=== PATIENT | male | born 1965 | race Caucasian/White ===

== ENCOUNTER 2020-02-12 17:36 | Emergency (ER) | payer MEDICARE, OTHER ==
[2020-02-12] MEDS ORDERED: IBUPROFEN 600 MG TAB PO STA (17:49)
[2020-02-12] MEDS ORDERED: SODIUM CHLORIDE 0.9% 1,000 ML IV STA (17:49)
[2020-02-12 17:57] VITALS: BP 130/81; PULSE 69; RESP 18; TEMP 99.1
[2020-02-12 18:24] LABS: Basophils % (A) 1 %; Eosinophils # (A) 0.4 k/uL (0-0.7); Eosinophils % (A) 4 %; HCT 40.1 % (39.0-53.0); HGB 13.7 gm/dL (13.0-17.5); Lymphocytes # (A) 2.5 k/uL (1.0-4.8); Lymphocytes % (A) 29 %; MCH 33.4 pg (25.0-35.0); MCHC 34.2 g/dL (31.0-37.0); MCV 97.9 fL (80.0-100.0); Mean Platelet Volume 7.2; Monocytes # (A) 0.7 k/uL (0-1.0); Monocytes % (A) 8 %; Neutrophils # (A) 4.9 k/uL (1.3-7.7); Neutrophils % (A) 56 %; Platelet Count 154 k/uL (150-450); RDW 12.9 % (11.5-15.5); WBC 8.7 k/uL (3.8-10.6)
[2020-02-12 18:33] LABS: ALT 22 U/L (4-49); AST 30 U/L (17-59); African American GFR (CKD) >90 (>60 ml/min/1.73 sqM); Albumin 3.8 g/dL (3.5-5.0); Alkaline Phosphatase 72 U/L (38-126); Anion Gap 8 mmol/L; Blood Urea Nitrogen 18 mg/dL (9-20); Calcium 8.6 mg/dL (8.4-10.2); Carbon Dioxide 28 mmol/L (22-30); Chloride 100 mmol/L (98-107); Glucose 91 mg/dL (74-99); Non-African American GFR(CKD) >90 (>60 ml/min/1.73 sqM); Potassium 4.1 mmol/L (3.5-5.1); Sodium 136 mmol/L (137-145); Total Bilirubin 0.2 mg/dL (0.2-1.3); Total Protein 6.4 g/dL (6.3-8.2)
--- NOTE | 2020-02-12 18:48 | XR ---
EXAMINATION TYPE: XR chest 1V portable DATE OF EXAM: 02/12/2020 COMPARISON: 02/27/2015 INDICATION: Cough, fever TECHNIQUE: Single frontal view of the chest is obtained. FINDINGS: The heart size is normal. The pulmonary vasculature is normal. The lungs are clear. There is chronic elevation of the right diaphragm. IMPRESSION: 1. No acute pulmonary process.
--- NOTE | 2020-02-12 20:13 | ED ---
Fever HPI - General Chief Complaint: Fever Stated Complaint: NVD,Fever Time Seen by Provider: 02/12/20 17:45 Source: patient, EMS Mode of arrival: EMS Limitations: language barrier - History of Present Illness Initial Comments: The patient is a 54-year-old male who presents to the emergency room in from a [facility] for fever. History is difficult to obtain as the patient is deaf however he does communicate well when examiner writes out the questions. He states that he feels fine however his [facility] told him that he was sick. They have been she gets vitals and he did have a fever of 100.4 today. He also stated that he had a cough which she does admit to. He denies any chest pain or shortness of breath. No abdominal pain. Denies any nausea or vomiting. No diarrhea or constipation. Denies any urinary complaints to include dysuria, he maturia or difficulty voiding. He denies any rashes. No headaches or visual changes. No neck pain or stiffness. There are no other alleviating, precipitating or modifying factors - Related Data Home Medications Medication Instructions Recorded Confirmed Aspirin EC [Ecotrin] 325 mg PO DAILY 09/17/14 02/12/20 Divalproex ER [Depakote ER] 500 mg PO TID 02/14/15 02/12/20 Metoprolol Tartrate [Lopressor] 50 mg PO BID 02/14/15 02/12/20 ARIPiprazole [Abilify] 20 mg PO DAILY 11/25/15 02/12/20 Mirtazapine [Remeron] 15 mg PO HS 11/25/15 02/12/20 Sertraline [Zoloft] 100 mg PO BID 11/25/15 02/12/20 Cetirizine HCl [Zyrtec] 10 mg PO DAILY 02/12/20 02/12/20 LORazepam [Ativan] 0.5 mg PO BID@0800,1430 02/12/20 02/12/20 LORazepam [Ativan] 1 mg PO HS 02/12/20 02/12/20 Levothyroxine Sodium [Synthroid] 200 mcg PO DAILY 02/12/20 02/12/20 Multivitamins, Thera [Multivitamin 1 tab PO DAILY 02/12/20 02/12/20 (formulary)] amLODIPine [Norvasc] 5 mg PO DAILY 02/12/20 02/12/20 chlorproMAZINE HCL [Thorazine] 50 mg PO BID 02/12/20 02/12/20 Allergies Allergy/AdvReac Type Severity Reaction Status Date / Time alprazolam [From Xanax] Allergy Unknown Verified 02/12/20 19:36 buspirone HCl [From BuSpar] Allergy Rash/Hives Verified 02/12/20 19:36 iodine Allergy Unknown Verified 02/12/20 19:36 Childhood haloperidol [From Haldol] AdvReac personality Verified 02/12/20 19:36 changes haloperidol lactate AdvReac personality Verified 02/12/20 19:36 [From Haldol] changes CT SCAN DYE Allergy Unknown Uncoded 02/12/20 17:45 Childhood Review of Systems ROS Statement: Those systems with pertinent positive or pertinent negative responses have been documented in the HPI. ROS Other: All systems not noted in ROS Statement are negative. 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 He takes his medication in applesauce or yogurt. He also has balance issues at times. He has been newly prescribed thyroid medication but has not started it yet. He has had hyponatremia which family believes physicians think it may be due to d epakote. He had a CVA in August 2014. He has had abdominal pain in the past and overuse of stool softners. He has hemorrhoids. He has a seizure disorder with last seizure yrs ago-family believe seizure medication was working well. History of Any Multi-Drug Resistant Organisms: None Reported Additional Past Surgical History / Comment(s): 04/11/15 total colonoscopy with benign biopsy, ANEURYSM REPAIR(clip in place)-brain surgeries(CRANIOTOMY) due to neuro fibromitosis causing tumors,sx done at [facility]- dr aishwarya harrison. Old L cochlear implant. Pt has had peg and trach in the . Past Anesthesia/Blood Transfusion Reactions: No Reported Reaction Past Psychological History: Anxiety, Depression Smoking Status: Former smoker Past Alcohol Use History: None Reported Past Drug Use History: Marijuana - Past Family History Father Family Medical History: COPD Additional Family Medical History / Comment(s): Father was a smoker and had emphysema. Mother Additional Family Medical History / Comment(s): Mother of lung disease. General Exam Limitations: language barrier General appearance: alert, in no apparent distress Head exam: Present: atraumatic, normocephalic, normal inspection Eye exam: Present: normal appearance, PERRL, EOMI. Absent: scleral icterus, conjunctival injection, periorbital swelling ENT exam: Present: normal exam, mucous membranes moist Neck exam: Present: normal inspection. Absent: tenderness, meningismus, lymphadenopathy Respiratory exam: Present: normal lung sounds bilaterally. Absent: respiratory distress, wheezes, rales, rhonchi, stridor Cardiovascular Exam: Present: regular rate, normal rhythm, normal heart sounds. Absent: systolic murmur, diastolic murmur, rubs, gallop, clicks GI/Abdominal exam: Present: soft, normal bowel sounds. Absent: distended, tenderness, guarding, rebound, rigid Extremities exam: Present: normal inspection, full ROM, normal capillary refill. Absent: tenderness, pedal edema, joint swelling, calf tenderness Back exam: Present: normal inspection Neurological exam: Present: alert, oriented X3, CN II-XII intact Psychiatric exam: Present: normal affect, normal mood Skin exam: Present: warm, dry, intact, normal color. Absent: rash Course Vital Signs 02/12/20 17:45 Temperature 99.1 F Pulse Rate 69 Respiratory 18 Rate Blood Pressure 130/81 O2 Sat by Pulse 100 Oximetry Medical Decision Making - Medical Decision Making Upon arrival the patient is placed into room 7. A thorough history and physical exam is performed. Peripheral IV is established. Laboratories were conducted. White blood cell count normal at 8.7. Sodium 136. Chest x-ray demonstrates no acute cardio pulmonary process. I did request a UA however the patient is unable to provide one. Patient is here to leave at this time. I did discuss the diagnosis, differential and treatment options. Source of fever is not revealed however the patient states he feels well and wants to go home. I did swab him for Covid test is because he lives in a group setting. I informed him that he would be called with results. Follow up with his doctor within 2 days. Return to the emergency room if he has any new or worsening symptoms. Patient was in agreement with this. We did call his guardian who is in agreement with the plan and the patient was discharged home in stable condition - Lab Data Result diagrams: 02/12/20 18:15 02/12/20 18:15 Lab Results 02/12/20 02/12/20 02/12/20 Range/Units 18:15 18:15 18:15 WBC 8.7 (3.8-10.6) k/uL RBC 4.10 L (4.30-5.90) m/uL Hgb 13.7 (13.0-17.5) gm/dL Hct 40.1 (39.0-53.0) % MCV 97.9 (80.0-100.0) fL MCH 33.4 (25.0-35.0) pg MCHC 34.2 (31.0-37.0) g/dL RDW 12.9 (11.5-15.5) % Plt Count 154 (150-450) k/uL Neutrophils % 56 % Lymphocytes % 29 % Monocytes % 8 % Eosinophils % 4 % Basophils % 1 % Neutrophils # 4.9 (1.3-7.7) k/uL Lymphocytes # 2.5 (1.0-4.8) k/uL Monocytes # 0.7 (0-1.0) k/uL Eosinophils # 0.4 (0-0.7) k/uL Basophils # 0.0 (0-0.2) k/uL Sodium 136 L (137-145) mmol/L Potassium 4.1 (3.5-5.1) mmol/L Chloride 100 (98-107) mmol/L Carbon Dioxide 28 (22-30) mmol/L Anion Gap 8 mmol/L BUN 18 (9-20) mg/dL Creatinine 0.66 (0.66-1.25) mg/dL Est GFR (CKD-EPI)AfAm >90 (>60 ml/min/1.73 sqM) Est GFR (CKD-EPI)NonAf >90 (>60 ml/min/1.73 sqM) Glucose 91 (74-99) mg/dL Plasma Lactic Acid Jaime 0.8 (0.7-2.0) mmol/L Calcium 8.6 (8.4-10.2) mg/dL Total Bilirubin 0.2 (0.2-1.3) mg/dL AST 30 (17-59) U/L ALT 22 (4-49) U/L Alkaline Phosphatase 72 (38-126) U/L Total Protein 6.4 (6.3-8.2) g/dL Albumin 3.8 (3.5-5.0) g/dL Lipase 151 (23-300) U/L Free Valproic Acid (4.8-17.3) mg/L Coronavirus (PCR) (Not Detected) 02/12/20 02/12/20 Range/Units 18:15 20:59 WBC (3.8-10.6) k/uL RBC (4.30-5.90) m/uL Hgb (13.0-17.5) gm/dL Hct (39.0-53.0) % MCV (80.0-100.0) fL MCH (25.0-35.0) pg MCHC (31.0-37.0) g/dL RDW (11.5-15.5) % Plt Count (150-450) k/uL Neutrophils % % Lymphocytes % % Monocytes % % Eosinophils % % Basophils % % Neutrophils # (1.3-7.7) k/uL Lymphocytes # (1.0-4.8) k/uL Monocytes # (0-1.0) k/uL Eosinophils # (0-0.7) k/uL Basophils # (0-0.2) k/uL Sodium (137-145) mmol/L Potassium (3.5-5.1) mmol/L Chloride (98-107) mmol/L Carbon Dioxide (22-30) mmol/L Anion Gap mmol/L BUN (9-20) mg/dL Creatinine (0.66-1.25) mg/dL Est GFR (CKD-EPI)AfAm (>60 ml/min/1.73 sqM) Est GFR (CKD-EPI)NonAf (>60 ml/min/1.73 sqM) Glucose (74-99) mg/dL Plasma Lactic Acid Jaime (0.7-2.0) mmol/L Calcium (8.4-10.2) mg/dL Total Bilirubin (0.2-1.3) mg/dL AST (17-59) U/L ALT (4-49) U/L Alkaline Phosphatase (38-126) U/L Total Protein (6.3-8.2) g/dL Albumin (3.5-5.0) g/dL Lipase (23-300) U/L Free Valproic Acid 15.3 (4.8-17.3) mg/L Coronavirus (PCR) Not Detected (Not Detected) Disposition Clinical Impression: Fever Disposition: HOME SELF-CARE Condition: Stable Instructions (If sedation given, give patient instructions): Fever in Adults (ED) Additional Instructions: Please follow up with your primary care doctor in 2-4 days. We will call you if you are positive for Covid. Return to the emergency room for any new or wors ening symptoms Is patient prescribed a controlled substance at d/c from ED?: No Referrals: None,Stated [Primary Care Provider] - 1-2 days Time of Disposition: 21:09
== END 2020-02-12 21:34 | disposition home or self-care (01) ==
LOC: EC 17:36
DX: R50.9 Fever, unspecified (principal); F32.9 Major depressive disorder, single episode, unspecified; F41.9 Anxiety disorder, unspecified; I10 Essential (primary) hypertension; H54.8 Legal blindness, as defined in USA; E07.9 Disorder of thyroid, unspecified; G40.909 Epilepsy, unspecified, not intractable, without status epilepticus; H91.90 Unspecified hearing loss, unspecified ear; Z79.82 Long term (current) use of aspirin; Z79.890 Hormone replacement therapy; Z79.899 Other long term (current) drug therapy; Z88.8 Allergy status to other drugs, medicaments and biological substances; Z91.041 Radiographic dye allergy status; Z86.73 Personal history of transient ischemic attack (TIA), and cerebral infarction without residual deficits; Z87.891 Personal history of nicotine dependence; Z20.828 Contact with and (suspected) exposure to other viral communicable diseases
CPT/HCPCS: 36415; 80165; 80053; 83605; 83690; 85025; 71045; 99284; 96360; U0003

== ENCOUNTER 2020-07-06 00:53 | Emergency (ER) | payer MEDICARE, OTHER ==
[2020-07-06] MEDS ORDERED: IBUPROFEN 600 MG TAB PO STA (01:28)
[2020-07-06 02:04] LABS: Basophils # (A) 0.1 k/uL (0-0.2); Basophils % (A) 1 %; Eosinophils # (A) 0.2 k/uL (0-0.7); Eosinophils % (A) 2 %; HCT 35.4 % (39.0-53.0); HGB 11.9 gm/dL (13.0-17.5); Lymphocytes # (A) 1.8 k/uL (1.0-4.8); Lymphocytes % (A) 18 %; MCH 33.6 pg (25.0-35.0); MCHC 33.6 g/dL (31.0-37.0); MCV 99.9 fL (80.0-100.0); Mean Platelet Volume 7.4; Monocytes # (A) 0.8 k/uL (0-1.0); Monocytes % (A) 9 %; Neutrophils # (A) 6.7 k/uL (1.3-7.7); Neutrophils % (A) 68 %; Platelet Count 135 k/uL (150-450); RBC 3.55 m/uL (4.30-5.90); RDW 12.5 % (11.5-15.5); WBC 9.9 k/uL (3.8-10.6)
[2020-07-06 02:06] LABS: African American GFR (CKD) >90 (>60 ml/min/1.73 sqM); Anion Gap 4 mmol/L; Blood Urea Nitrogen 30 mg/dL (9-20); Calcium 8.1 mg/dL (8.4-10.2); Carbon Dioxide 31 mmol/L (22-30); Chloride 99 mmol/L (98-107); Glucose 102 mg/dL (74-99); Non-African American GFR(CKD) >90 (>60 ml/min/1.73 sqM); Potassium 4.1 mmol/L (3.5-5.1); Sodium 134 mmol/L (137-145)
--- NOTE | 2020-07-06 02:27 | CT ---
EXAM: CT Head Without Intravenous Contrast CLINICAL HISTORY: ITS.REASON CT Reason: fall injury TECHNIQUE: Axial computed tomography images of the head/brain without intravenous contrast. CTDI is 46.05 mGy and DLP is 1123.5 mGy-cm. This CT exam was performed using one or more of the following dose reduction techniques: automated exposure control, adjustment of the mA and/or kV according to patient size, and/or use of iterative reconstruction technique. COMPARISON: 11/24/2015 FINDINGS: Brain: No hemorrhage. 5 cm mass in the right frontal lobe effacing the right frontal horn lateral ventricle. Multiple dystrophic calcifications and extra-axial calcified lesions are seen. Ventricles: No hydrocephalus. Bones/joints: Postsurgical changes are again seen. Soft tissues: Unremarkable. Sinuses: Unremarkable. Mastoid air cells: Clear. IMPRESSION: 1. No acute traumatic findings. 2. Multiple calcified extra-axial dural masses, presumed to be multiple meningiomas, some of them are new. The largest process is a new 5 cm mass in the right frontal lobe, which effaces the right frontal horn lateral ventricle. No significant midline shift. 3. 2.1 cm calcified lymph node/mass in the left carotid space. Unchanged from 2016. EXAM: CT Cervical Spine Without Intravenous Contrast CLINICAL HISTORY: ITS.REASON CT Reason: fall injury TECHNIQUE: Axial computed tomography images of the cervical spine without intravenous contrast. CTDI is 9.785 mGy and DLP is 271.8 mGy-cm. This CT exam was performed using one or more of the following dose reduction techniques: automated exposure control, adjustment of the mA and/or kV according to patient size, and/or use of iterative reconstruction technique. COMPARISON: No relevant prior studies available. FINDINGS: Vertebrae: No acute fracture. Minimal anterolisthesis of C2-3 on C4 and retrolisthesis of C4 on C5, C5 on C6 and C6 on C7. Dextroscoliosis. Discs/spinal canal/neural foramina: Degenerative changes. Soft tissues: No prevertebral swelling. 2.1 cm calcified lymph node/mass in the left carotid space. IMPRESSION: 1. No acute fracture or subluxation. 2. 2.1 cm calcified lymph node/mass in the left carotid space. Unchanged from 2016.
--- NOTE | 2020-07-06 02:59 | ED ---
Fall HPI - General Chief Complaint: Fall Stated Complaint: Fall Time Seen by Provider: 07/06/20 01:01 Source: EMS Mode of arrival: EMS - History of Present Illness Initial Comments: this patient's 55-year-old man transferred from his long-term care facility to be evaluated after what sounds like a fall one attempting to transfer. History is difficult as the patient very hard of hearing andcommunication by a written note to which she will speak in return. He oes occasionally understand spoken question and responsive to them. The patient reportedly told EMS that he was having pain in the neck and was placed in cervical collar. While here, patient deniedneck pain MD Complaint: fall Onset/Timin -: hour(s) Fall From: standing When Fall Occurred: just prior to arrival Fall Witnessed: yes, by family Place Fall Occurred: home Loss of Consciousness: none Prolonged Down Time?: no Location: neck - Related Data Home Medications Medication Instructions Recorded Confirmed Aspirin EC [Ecotrin] 325 mg PO DAILY 09/17/14 02/12/20 Divalproex ER [Depakote ER] 500 mg PO TID 02/14/15 02/12/20 Metoprolol Tartrate [Lopressor] 50 mg PO BID 02/14/15 02/12/20 ARIPiprazole [Abilify] 20 mg PO DAILY 11/25/15 02/12/20 Mirtazapine [Remeron] 15 mg PO HS 11/25/15 02/12/20 Sertraline [Zoloft] 100 mg PO BID 11/25/15 02/12/20 Cetirizine HCl [Zyrtec] 10 mg PO DAILY 02/12/20 02/12/20 LORazepam [Ativan] 0.5 mg PO BID@0800,1430 02/12/20 02/12/20 LORazepam [Ativan] 1 mg PO HS 02/12/20 02/12/20 Levothyroxine Sodium [Synthroid] 200 mcg PO DAILY 02/12/20 02/12/20 Multivitamins, Thera [Multivitamin 1 tab PO DAILY 02/12/20 02/12/20 (formulary)] amLODIPine [Norvasc] 5 mg PO DAILY 02/12/20 02/12/20 chlorproMAZINE HCL [Thorazine] 50 mg PO BID 02/12/20 02/12/20 Allergies Allergy/AdvReac Type Severity Reaction Status Date / Time alprazolam [From Xanax] Allergy Unknown Verified 02/12/20 19:36 buspirone HCl [From BuSpar] Allergy Rash/Hives Verified 02/12/20 19:36 iodine Allergy Unknown Verified 02/12/20 19:36 Childhood haloperidol [From Haldol] AdvReac personality Verified 02/12/20 19:36 changes haloperidol lactate AdvReac personality Verified 02/12/20 19:36 [From Haldol] changes CT SCAN DYE Allergy Unknown Uncoded 02/12/20 17:45 Childhood Review of Systems ROS Statement: Those systems with pertinent positive or pertinent negative responses have been documented in the HPI. ROS Other: All systems not noted in ROS Statement are negative. 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 He takes his medication in applesauce or yogurt. He also has balance issues at times. He has been newly prescribed thyroid medication but has not started it yet. He has had hyponatremia which family believes physicians think it may be due to depakote. He had a CVA in August 2014. He has had abdominal pain in the past and overuse of stool softners. He has hemorrhoids. He has a seizure disorder with last seizure yrs ago-family believe seizure medication was working well. History of Any Multi-Drug Resistant Organisms: None Reported Additional Past Surgical History / Comment(s): 04/11/15 total colonoscopy with benign biopsy, ANEURYSM REPAIR(clip in place)-brain surgeries(CRANIOTOMY) due to neuro fibromitosis causing tumors,sx done at [facility]- dr aishwarya harrison. Old L cochlear implant. Pt has had peg and trach in the . Past Anesthesia/Blood Transfusion Reactions: No Reported Reaction Past Psychological History: Anxiety, Depression Past Alcohol Use History: None Reported Past Drug Use History: Marijuana - Past Family History Father Family Medical History: COPD Additional Family Medical History / Comment(s): Father was a smoker and had emphysema. Mother Additional Family Medical History / Comment(s): Mother of lung disease. General Exam Limitations: altered mental status, physical limitation General appearance: alert, in no apparent distress Head exam: Present: atraumatic, normocephalic Neck exam: Present: normal inspection, other (cervical collar). Absent: tenderness Respiratory exam: Present: normal lung sounds bilaterally. Absent: respiratory distress, wheezes, rales, rhonchi, chest wall tenderness Cardiovascular Exam: Present: regular rate, normal rhythm, normal heart sounds. Absent: systolic murmur, diastolic murmur, rubs, gallop GI/Abdominal exam: Present: soft. Absent: distended, tenderness, guarding, rebound, rigid, mass Extremities exam: Present: normal inspection, normal capillary refill. Absent: pedal edema, calf tenderness Back exam: Present: normal inspection. Absent: vertebral tenderness Neurological exam: Present: alert Skin exam: Present: warm, dry, intact, normal color. Absent: rash Course Vital Signs 07/06/20 07/06/20 07/06/20 01:05 02:20 03:39 Temperature 98.1 F 98.0 F Pulse Rate 66 68 72 Respiratory 18 16 Rate Blood Pressure 107/65 100/58 104/76 O2 Sat by Pulse 100 97 100 Oximetry Medical Decision Making - Medical Decision Making patient's 55-year-old man with a fall at his long-term care facility. Low mechanism of injury. Given the communication difficulty patient did have head CT C-spine included because of the EMS report of neck pain. The study is negative. I was otherwise not able to elicit any tenderness on the exam. Patient transferred back to [facility] - Lab Data Result diagrams: 07/06/20 01:46 07/06/20 01:46 Lab Results 07/06/20 07/06/20 Range/Units 01:46 01:46 WBC 9.9 (3.8-10.6) k/uL RBC 3.55 L (4.30-5.90) m/uL Hgb 11.9 L (13.0-17.5) gm/dL Hct 35.4 L (39.0-53.0) % MCV 99.9 (80.0-100.0) fL MCH 33.6 (25.0-35.0) pg MCHC 33.6 (31.0-37.0) g/dL RDW 12.5 (11.5-15.5) % Plt Count 135 L (150-450) k/uL Neutrophils % 68 % Lymphocytes % 18 % Monocytes % 9 % Eosinophils % 2 % Basophils % 1 % Neutrophils # 6.7 (1.3-7.7) k/uL Lymphocytes # 1.8 (1.0-4.8) k/uL Monocytes # 0.8 (0-1.0) k/uL Eosinophils # 0.2 (0-0.7) k/uL Basophils # 0.1 (0-0.2) k/uL Sodium 134 L (137-145) mmol/L Potassium 4.1 (3.5-5.1) mmol/L Chloride 99 (98-107) mmol/L Carbon Dioxide 31 H (22-30) mmol/L Anion Gap 4 mmol/L BUN 30 H (9-20) mg/dL Creatinine 0.86 (0.66-1.25) mg/dL Est GFR (CKD-EPI)AfAm >90 (>60 ml/min/1.73 sqM) Est GFR (CKD-EPI)NonAf >90 (>60 ml/min/1.73 sqM) Glucose 102 H (74-99) mg/dL Calcium 8.1 L (8.4-10.2) mg/dL Disposition Clinical Impression: Fall, Head injury Disposition: HOME SELF-CARE Condition: Good Instructions (If sedation given, give patient instructions): Head Injury (ED) Is patient prescribed a controlled substance at d/c from ED?: No Referrals: None,Stated [Primary Care Provider] - 1-2 days
[2020-07-06 03:47] VITALS: BP 104/76; PULSE 72; RESP 16; TEMP 98
== END 2020-07-06 03:46 | disposition home or self-care (01) ==
LOC: EC 00:53
DX: S09.90XA Unspecified injury of head, initial encounter (principal); M54.2 Cervicalgia; I10 Essential (primary) hypertension; E07.9 Disorder of thyroid, unspecified; G40.909 Epilepsy, unspecified, not intractable, without status epilepticus; H91.90 Unspecified hearing loss, unspecified ear; H54.8 Legal blindness, as defined in USA; F32.9 Major depressive disorder, single episode, unspecified; F41.9 Anxiety disorder, unspecified; Z79.899 Other long term (current) drug therapy; Z79.890 Hormone replacement therapy; Z79.82 Long term (current) use of aspirin; Z88.8 Allergy status to other drugs, medicaments and biological substances; Z91.048 Other nonmedicinal substance allergy status; Z91.041 Radiographic dye allergy status; Z86.73 Personal history of transient ischemic attack (TIA), and cerebral infarction without residual deficits; W18.30XA Fall on same level, unspecified, initial encounter; Y92.009 Unspecified place in unspecified non-institutional (private) residence as the place of occurrence of the external cause
CPT/HCPCS: 36415; 70450; 72125; 80048; 85025; 99284

== ENCOUNTER 2020-10-15 13:20 | Inpatient (IN) | payer MEDICARE, OTHER ==
--- NOTE | 2020-10-15 13:46 | ED ---
Fall HPI <OnelAvery - Last Filed: 10/15/20 19:27> - General Source: EMS, Caregiver Mode of arrival: EMS <Kaela Andrews - Last Filed: 10/15/20 22:21> - General Chief Complaint: Fall Stated Complaint: Fall Time Seen by Provider: 10/15/20 13:22 - History of Present Illness Initial Comments: Patient is a 55-year-old male with past medical history of CVA, hypertension, seizure disorder who is legally blind and deaf who presents to the emergency room in from a custodial. residential states that the patient does have baseline difficulties with ambulation however has had increasing falls over the past couple of days. Patient fell today. First incident the patient fell and skinned his right knee. The second incident the patient fell and hit his head on a wall. No loss of consciousness. Patient complains of a mild headache at this time. Nursing facility has noted that the patient has had increasing weakness in the right leg. Patient admits to me left-sided abdominal pain. Patient arrives in a c-collar. Patient has equal strength in all 4 extremities upon exam. No other alleviating, Percepting or modifying factors (Kaela Andrews) - Related Data Home Medications Medication Instructions Recorded Confirmed Metoprolol Tartrate [Lopressor] 50 mg PO BID 02/14/15 10/15/20 ARIPiprazole [Abilify] 20 mg PO DAILY 11/25/15 10/15/20 Sertraline [Zoloft] 100 mg PO BID 11/25/15 10/15/20 Levothyroxine Sodium [Synthroid] 100 mcg PO DAILY 02/12/20 10/15/20 amLODIPine [Norvasc] 5 mg PO DAILY 02/12/20 10/15/20 Divalproex [Depakote] 500 mg PO TID 10/15/20 10/15/20 LORazepam [Ativan] 0.25 mg PO HS 10/15/20 10/15/20 LORazepam [Ativan] 0.5 mg PO BID@0800,1430 10/15/20 10/15/20 Allergies Allergy/AdvReac Type Severity Reaction Status Date / Time alprazolam [From Xanax] Allergy Unknown Verified 10/15/20 17:42 buspirone HCl [From BuSpar] Allergy Rash/Hives Verified 10/15/20 17:42 iodine Allergy Unknown Verified 10/15/20 17:42 Childhood haloperidol [From Haldol] AdvReac personality Verified 10/15/20 17:42 changes haloperidol lactate AdvReac personality Verified 10/15/20 17:42 [From Haldol] changes CT SCAN DYE Allergy Unknown Uncoded 10/15/20 17:42 Childhood Review of Systems ROS Other: All systems not noted in ROS Statement are negative. <Avery Sykes - Last Filed: 10/15/20 19:27> ROS Other: All systems not noted in ROS Statement are negative. <Kaela Andrews - Last Filed: 10/15/20 22:21> ROS Statement: Those systems with pertinent positive or pertinent negative responses have been documented in the HPI. 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 He takes his medication in applesauce or yogurt. He also has balance issues at times. He has been newly prescribed thyroid medication but has not started it yet. He has had hyponatremia which family believes physicians think it may be due to depakote. He had a CVA in August 2014. He has had abdominal pain in the past and overuse of stool softners. He has hemorrhoids. He has a seizure disorder with last seizure yrs ago-family believe seizure medication was working well. History of Any Multi-Drug Resistant Organisms: None Reported Additional Past Surgical History / Comment(s): 04/11/15 total colonoscopy with benign biopsy, ANEURYSM REPAIR(clip in place)-brain surgeries(CRANIOTOMY) due to neuro fibromitosis causing tumors,sx done at [facility]- dr aishwarya harrison. Old L cochlear implant. Pt has had peg and trach in the . Past Anesthesia/Blood Transfusion Reactions: No Reported Reaction Past Psychological History: Anxiety, Depression Past Alcohol Use History: None Reported Past Drug Use History: Marijuana - Past Family History Father Family Medical History: COPD Additional Family Medical History / Comment(s): Father was a smoker and had emphysema. Mother Additional Family Medical History / Comment(s): Mother of lung disease. <Kaela Andrews - Last Filed: 10/15/20 22:21> General Exam Limitations: no limitations General appearance: alert, in no apparent distress Head exam: Present: atraumatic, normocephalic, normal inspection Eye exam: Present: normal appearance, PERRL, EOMI. Absent: scleral icterus, conjunctival injection, periorbital swelling ENT exam: Present: other (poor dentition) Neck exam: Present: tenderness (midline, c2-c6). Absent: meningismus Respiratory exam: Present: normal lung sounds bilaterally. Absent: respiratory distress, wheezes, rales, rhonchi, stridor Cardiovascular Exam: Present: regular rate, normal rhythm, normal heart sounds. Absent: systolic murmur, diastolic murmur, rubs, gallop, clicks GI/Abdominal exam: Present: soft, tenderness (left periumbilical region), normal bowel sounds. Absent: distended, guarding, rebound, rigid Extremities exam: Present: other (abrasion, right knee. minimal strength difference with more weakness in the right leg - patient reports this is chronic due to CVA hx) Back exam: Present: normal inspection Neurological exam: Present: alert, oriented X3, CN II-XII intact Psychiatric exam: Present: normal affect, normal mood Skin exam: Present: warm, dry, normal color. Absent: rash <ManuelKaela solano Severiano - Last Filed: 10/15/20 22:21> Course <Avery Sykes - Last Filed: 10/15/20 19:27> Vital Signs 10/15/20 10/15/20 10/15/20 13:21 16:29 19:52 Temperature 98.3 F Pulse Rate 65 64 65 Respiratory 16 16 16 Rate Blood Pressure 102/67 118/81 111/72 O2 Sat by Pulse 100 100 97 Oximetry - Reevaluation(s) Reevaluation #1: 10/15/20 19:27 Patient reevaluated by myself, Dr. Sykes. There is concern whether patient does have increased from baseline right leg weakness. On exam right leg does appear to be slightly more weak however patient has recent injury there and unclear if this is from discomfort or weakness. Case was earlier discussed with Dr. Edgar who did review the computed tomography scan and did not have concern for traumatic injury. Ultrasound shows no evidence of traffic injury. Computed tomography scan right knee does not reveal fracture. Case was also discussed with Dr. Arzola who will admit covering for hospital call. He will have neurology evaluate. (Avery Sykes) Medical Decision Making - Lab Data Result diagrams: 10/15/20 13:43 10/15/20 13:43 - Radiology Data Radiology results: report reviewed (Computed tomography scan of brain shows posttraumatic injury or hemorrhage. Stable appearing right frontal cerebellar mass and multiple calcified meningiomas. CT cervical spine shows degenerative changes. Calcification within the spinal cord posterior to the upper cervical spine, also present on ), image reviewed (Two-view chest x-ray shows nodule. No acute process. X-ray of the right knee shows questionable medial femoral condyle fracture.) <Avery Sykes - Last Filed: 10/15/20 19:27> - Lab Data Result diagrams: 10/15/20 13:43 10/15/20 13:43 <Kaela Andrews - Last Filed: 10/15/20 22:21> - Medical Decision Making Upon arrival patient is placed in room 5. A thorough history and physical exam was performed. Patient does arrive in a c-collar. Does complain of neck pain. IV is established. Laboratory studies were conducted and the patient went for CTs of the brain, cervical spine, abdomen and pelvis. Chest x-ray and right knee x-ray are also ordered. Results are pending at this time. Patient will bed signed out to Dr. Sykes (Kaela Andrews) - Lab Data Lab Results 10/15/20 10/15/20 10/15/20 Range/Units 13:43 13:43 13:43 WBC 8.3 (3.8-10.6) k/uL RBC 3.83 L (4.30-5.90) m/uL Hgb 12.9 L (13.0-17.5) gm/dL Hct 38.4 L (39.0-53.0) % MCV 100.4 H (80.0-100.0) fL MCH 33.7 (25.0-35.0) pg MCHC 33.6 (31.0-37.0) g/dL RDW 12.7 (11.5-15.5) % Plt Count 160 (150-450) k/uL MPV 7.0 Neutrophils % 69 % Lymphocytes % 19 % Monocytes % 8 % Eosinophils % 2 % Basophils % 1 % Neutrophils # 5.7 (1.3-7.7) k/uL Lymphocytes # 1.6 (1.0-4.8) k/uL Monocytes # 0.7 (0-1.0) k/uL Eosinophils # 0.2 (0-0.7) k/uL Basophils # 0.0 (0-0.2) k/uL PT 11.0 (9.0-12.0) sec INR 1.0 (<1.2) APTT 24.7 (22.0-30.0) sec Sodium 136 L (137-145) mmol/L Potassium 4.0 (3.5-5.1) mmol/L Chloride 99 (98-107) mmol/L Carbon Dioxide 32 H (22-30) mmol/L Anion Gap 5 mmol/L BUN 21 H (9-20) mg/dL Creatinine 0.72 (0.66-1.25) mg/dL Est GFR (CKD-EPI)AfAm >90 (>60 ml/min/1.73 sqM) Est GFR (CKD-EPI)NonAf >90 (>60 ml/min/1.73 sqM) Glucose 122 H (74-99) mg/dL Plasma Lactic Acid Jaime (0.7-2.0) mmol/L Calcium 9.0 (8.4-10.2) mg/dL Total Bilirubin 0.4 (0.2-1.3) mg/dL AST 39 (17-59) U/L ALT 24 (4-49) U/L Alkaline Phosphatase 66 (38-126) U/L Creatine Kinase 200 H (55-170) U/L Troponin I (0.000-0.034) ng/mL Total Protein 6.2 L (6.3-8.2) g/dL Albumin 3.6 (3.5-5.0) g/dL TSH 4.490 (0.465-4.680) mIU/L Valproic Acid 64.9 ug/mL 10/15/20 10/15/20 Range/Units 13:43 14:05 WBC (3.8-10.6) k/uL RBC (4.30-5.90) m/uL Hgb (13.0-17.5) gm/dL Hct (39.0-53.0) % MCV (80.0-100.0) fL MCH (25.0-35.0) pg MCHC (31.0-37.0) g/dL RDW (11.5-15.5) % Plt Count (150-450) k/uL MPV Neutrophils % % Lymphocytes % % Monocytes % % Eosinophils % % Basophils % % Neutrophils # (1.3-7.7) k/uL Lymphocytes # (1.0-4.8) k/uL Monocytes # (0-1.0) k/uL Eosinophils # (0-0.7) k/uL Basophils # (0-0.2) k/uL PT (9.0-12.0) sec INR (<1.2) APTT (22.0-30.0) sec Sodium (137-145) mmol/L Potassium (3.5-5.1) mmol/L Chloride (98-107) mmol/L Carbon Dioxide (22-30) mmol/L Anion Gap mmol/L BUN (9-20) mg/dL Creatinine (0.66-1.25) mg/dL Est GFR (CKD-EPI)AfAm (>60 ml/min/1.73 sqM) Est GFR (CKD-EPI)NonAf (>60 ml/min/1.73 sqM) Glucose (74-99) mg/dL Plasma Lactic Acid Jaime 1.3 (0.7-2.0) mmol/L Calcium (8.4-10.2) mg/dL Total Bilirubin (0.2-1.3) mg/dL AST (17-59) U/L ALT (4-49) U/L Alkaline Phosphatase (38-126) U/L Creatine Kinase (55-170) U/L Troponin I <0.012 (0.000-0.034) ng/mL Total Protein (6.3-8.2) g/dL Albumin (3.5-5.0) g/dL TSH (0.465-4.680) mIU/L Valproic Acid ug/mL - EKG Data EKG Comments: EKG demonstrates normal sinus rhythm with a ventricular rate of 67. CA interval 128. QRS 76. QTC of 439. No acute ST segment elevations or depressions (Kaela Andrews) - Radiology Data Interpreted by me: Computed tomography scan of abdomen and pelvis shows diminished density inferior lobe of liver. Artifact is likely over cannot exclude laceration. No free fluid. (Avery Sykes) Disposition Is patient prescribed a controlled substance at d/c from ED?: No Decision Time: 19:35 <Avery Sykes - Last Filed: 10/15/20 19:27> <Kaela Andrews - Last Filed: 10/15/20 22:21> Clinical Impression: Leg weakness Disposition: ADMITTED IP TO THIS HOSP
[2020-10-15 13:56] LABS: Basophils % (A) 1 %; Eosinophils # (A) 0.2 k/uL (0-0.7); Eosinophils % (A) 2 %; HCT 38.4 % (39.0-53.0); HGB 12.9 gm/dL (13.0-17.5); Lymphocytes # (A) 1.6 k/uL (1.0-4.8); Lymphocytes % (A) 19 %; MCH 33.7 pg (25.0-35.0); MCHC 33.6 g/dL (31.0-37.0); MCV 100.4 fL (80.0-100.0); Monocytes # (A) 0.7 k/uL (0-1.0); Monocytes % (A) 8 %; Neutrophils # (A) 5.7 k/uL (1.3-7.7); Neutrophils % (A) 69 %; Platelet Count 160 k/uL (150-450); RBC 3.83 m/uL (4.30-5.90); RDW 12.7 % (11.5-15.5); WBC 8.3 k/uL (3.8-10.6)
[2020-10-15] MEDS ORDERED: FAMOTIDINE 20 MG/2 ML VIAL IV STA (14:02)
[2020-10-15] MEDS ORDERED: methylPREDNISolone SOD SUCCI 125 MG/2 ML VIAL IV STA (14:02)
[2020-10-15] MEDS ORDERED: diphenhydrAMINE 50 MG/ML 1 ML VIAL IVP STA (14:02)
[2020-10-15 14:09] LABS: Partial Thromboplastin Time 24.7 sec (22.0-30.0)
[2020-10-15 14:13] LABS: ALT 24 U/L (4-49); AST 39 U/L (17-59); African American GFR (CKD) >90 (>60 ml/min/1.73 sqM); Albumin 3.6 g/dL (3.5-5.0); Alkaline Phosphatase 66 U/L (38-126); Anion Gap 5 mmol/L; Blood Urea Nitrogen 21 mg/dL (9-20); Carbon Dioxide 32 mmol/L (22-30); Chloride 99 mmol/L (98-107); Creatine Kinase 200 U/L (55-170); Glucose 122 mg/dL (74-99); Non-African American GFR(CKD) >90 (>60 ml/min/1.73 sqM); Sodium 136 mmol/L (137-145); Total Bilirubin 0.4 mg/dL (0.2-1.3); Total Protein 6.2 g/dL (6.3-8.2)
[2020-10-15 14:18] LABS: Valproic Acid (Depakene) 64.9 ug/mL
--- NOTE | 2020-10-15 15:29 | CT ---
EXAMINATION TYPE: CT brain cspine wo con DATE OF EXAM: 10/15/2020 COMPARISON: 07/06/2020 INDICATION: Fall with injury. Patient poor historian. DLP: 2502.9 mGycm, Automated exposure control for dose reduction was used. CONTRAST: None CT of the brain is performed utilizing 3 mm thick sections through the posterior fossa and 3 mm thick sections through the remaining calvarium. Study is performed within 24 hours of arrival to the hosp ital. No abnormal hyperdensity is present to suggest an acute intracranial hemorrhage. There is a large heterogenous mass which is iso to slightly hyper dense in relation to normal brain t issue. Measures roughly 5.6 cm AP by 3.5 cm transverse by 5.1 cm in craniocaudal dimension. This has mass effect on the anterior horn right lateral ventricle and some mild midline shift. This appears st able from comparison. There is dense calcification along the falx. Postsurgical craniotomy defects are evident along the fr ontal region and within the right and left occipital region. There are several extra-axial heterogeno us calcifications compatible with multiple meningiomas. Dense calcifications within the choroid plexu s. No acute infarcts are evident. No temporal horn dilatation is evident suggest hydrocephalus. Third ventricle appears midline. Fourth ventricle is midline. There there is prior left mastoidectomy. Right mastoid air cells appear clear. Some hyperostosis fron talis internus is present, normal variant. Paranasal sinuses visualized are clear. IMPRESSIONS: 1. No acute posttraumatic changes. 2. No acute hemorrhage. 3. Stable appearance of the right frontal lobe cerebral mass and multiple calcified meningiomas. EXAMINATION TYPE: CT [facility] con DATE OF EXAM: 10/15/2020 COMPARISON: 07/06/2020 HISTORY: Fall with injury. Patient poor historian. CT DLP: 2502.9 mGycm CONTRAST: None CT of the cervical spine is performed in the axial plane at 2 mm thick sections. Reconstructed image s in the coronal, and sagittal plane are reviewed on the computer. Scoliosis is present with the convexity to the left. Vertebral body alignment is normal. Disc space narrowing is present diffusely. This is greatest at the C4-5 and C6-7 levels. Small diesel engineer ior vertebral body spurring is present C6-7. Anterior vertebral body spurring is present C4-C7. Vertebral body heights are preserved. No spinal canal stenosis is evident Uncovertebral joint hypertrophy and spurring on the left paracentral region has moderate anterior the goyo sac compression and some lateral canal narrowing. Uncovertebral joint hypertrophy is present on t he left at C4-5 mild foraminal narrowing. Severe uncovertebral joint hypertrophy and foraminal narrowing is present C6-7. Calcified left carotid artery aneurysm may be near the skull base to the level of C1. May be a small meningioma in the posterior spinal canal at level of C1. Punctate calcification may be within the spi nal cord at the level of C3. IMPRESSIONS: 1. Degenerative changes through the cervical spine discussed above. 2. No acute osseous abnormality. 3. Note is made of calcification within the spinal cord and posterior to the spinal cord in the upper cervical spine. These findings were present previously.
--- NOTE | 2020-10-15 15:44 | CT ---
EXAMINATION TYPE: CT abdomen pelvis w con DATE OF EXAM: 10/15/2020 COMPARISON: None INDICATION: Fall with injury. Patient poor historian. DLP: 2502.9 mGycm, Automated exposure control for dose reduction was used. CONTRAST: 100 mL of Isovue 300. Study performed without Oral Contrast TECHNIQUE: Axial images were obtained from above the diaphragm to the pubic rami in the axial plane a t 5 mm thick sections. Reconstructed images are reviewed on the computer in the coronal plane. FINDINGS: Limited CT sections are obtained the lung bases. Small amount of compressive atelectasis is likely p resent at the right lung base.. CT ABDOMEN: Liver: There is some posterior lateral inferior right lobe liver hypodensity. No free fluid is adjace nt. This may be some artifact. However, consider laceration within the differential. Example image [facility] 501 image 29. Consider ultrasound. Spleen: Calcified granuloma is within the spleen. Pancreas: Poorly visualized Adrenal glands: The adrenal glands are normal. Gallbladder: Normal Kidneys: No masses are evident. No hydronephrosis is present. No cysts are present. Delayed images were obtained through the kidneys, which remain unremarkable. Aorta: Normal Inferior vena cava: Normal. CT PELVIS: Loops of bowel within the abdomen and pelvis are normal. The study is without oral contrast limit ing bowel evaluation Appendix: There may be postsurgical changes present. Correlate with the patient's surgical history. T he appendix is not identified. No dilated tubular structure inflammatory changes evident. Urinary bladder: Normal. Genitourinary structures: Prostate appears normal Osseous structures: No suspicious lytic or sclerotic lesions. Facet changes are within the lumbar spi ne. IMPRESSIONS: 1. There is some diminished density within the inferior right lobe liver. Artifact is favored. Howev er, differential does include laceration. No free fluid within the abdomen or adjacent to the liver h owever is evident. Correlate with location of the patient's pain. Consider ultrasound if additional e valuation would be of benefit.
--- NOTE | 2020-10-15 16:16 | XR ---
EXAMINATION TYPE: XR knee complete RT DATE OF EXAM: 10/15/2020 COMPARISON: None HISTORY: Fall, pain TECHNIQUE: Three-view right knee FINDINGS: There is narrowing of the medial compartment joint space. No joint effusion is evident. The re are multiple scattered skin calcifications present. There is a subtle cortical defect along the medial aspect of the distal femoral condyle. Very subtle lucency may be within the intercondylar notch medially. A nondisplaced fracture may be present. Recom mend CT knee for additional evaluation. The periarticular osseous structures are somewhat heterogenous appearance. IMPRESSION: 1. Possible nondisplaced fracture medial femoral condyle. Additional evaluation with CT is recommend ed.
--- NOTE | 2020-10-15 16:17 | XR ---
EXAMINATION TYPE: XR chest 2V DATE OF EXAM: 10/15/2020 COMPARISON: 02/12/2020 INDICATION: Cough, pain TECHNIQUE: Frontal and lateral views of the chest are obtained. FINDINGS: The heart size is normal. The pulmonary vasculature is normal. There is a 0.9 cm nodule within the left apex. This is an interval change. This can be followed with CT. There is a focal eventration of the right diaphragm. IMPRESSION: 1. New nodule left apex. Recommend CT chest for additional evaluation. 2. An acute pulmonary process is not otherwise evident.
[2020-10-15] MEDS ORDERED: MORPHINE SULFATE 4 MG/ML SYRINGE IVP STA (17:26)
--- NOTE | 2020-10-15 17:42 | HP ---
HISTORY AND PHYSICAL DATE OF SERVICE: 10/15/2020 CHIEF COMPLAINTS: Fall and right-sided weakness. HISTORY OF PRESENT ILLNESS: This 55-year-old gentleman has a past medical history of CVA, TIA, history of eye disorder, fibromyalgia, hearing defect, seizure disorder, neurofibromatosis, brain hemangioma surgery previously. The patient apparently was living in a usp and was noted to have increasing weakness of the right side and multiple falls with an abrasion on the right knee. The patient was admitted for further evaluation and treatment. The patient is unable to give a coherent history; the patient is dysarthric. Most of the history is taken from my discussion with staff and review of the chart and discussion with the ER physician. PAST MEDICAL HISTORY: CVA, TIA, fibromyalgia, hearing defect, seizure disorder, hypertension, hypothyroidism. HOME MEDICATIONS: Thorazine, Norvasc, Zoloft, multivitamins, Remeron, Lopressor, Synthroid, Ativan, Depakote ER, Zyrtec, Ecotrin, Abilify. ALLERGIES: XANAX, BUSPAR, IODINE, HALDOL, CT SCAN DYE. FAMILY HISTORY: Per chart, COPD. SOCIAL HISTORY: Previous history of smoking. No current smoking or alcohol intake. REVIEW OF SYSTEMS: Review of systems could not be taken because of change in mental status. PHYSICAL EXAMINATION: Pulse is 65, blood pressure 102/69, respirations 16, temperature 98.2, pulse ox 100% on room air. HEENT: Conjunctivae normal. NECK: No jugular venous distention. CARDIOVASCULAR SYSTEM: S1, S2 muffled. RESPIRATORY SYSTEM: Breath sounds diminished at the bases. A few scattered rhonchi. ABDOMEN: Soft, non-tender. LEGS: No edema. No swelling. NERVOUS SYSTEM: Diffusely weak, emaciated, with multiple contractures and scars also present. SKIN: Abrasion around the right knee area present. JOINTS: No active deforming arthropathy. LYMPHATICS: No lymph node palpable in neck, axillae or groin. LABS: WBC 8.3, hemoglobin 12.9, sodium 136. ASSESSMENT: 1. Recurrent falls, right-sided weakness. Rule out acute cerebrovascular accident. 2. Hyponatremia. 3. Elevated creatine kinase. Rule out mild rhabdomyolysis. 4. Anemia, macrocytic anemia of chronic disease. 5. History of cerebrovascular accident, transient ischemic attack. 6. Fibromyalgia. 7. Hearing defect. 8. Hypertension. 9. History of seizure disorder. 10.History of neurofibromatosis and brain aneurysm and surgeries. 11.History of anxiety, depression and OCD. 12.legal guardian. 13.Right frontal lobe cerebral mass lesion and multiple calcified meningiomas. RECOMMENDATIONS AND DISCUSSION: In this 55-year-old gentleman who presented with weakness from the [facility], at this time I recommend to continue current medications, continue symptomatic treatment. Neurology consultation. Otherwise, neurovascular workup. Antiplatelet agents. Resume the home medications. Prognosis is guarded because of multiple complex medical issues. Further recommendations to follow. Local treatment for the abrasion. A copy of this dictation is being forwarded to , who is the primary physician. A CT scan of the brain was personally reviewed by me which showed no acute changes, but a right frontal lobe cerebral mass and multiple calcified meningiomas. MMODL / IJN: [id number] / MTDD
--- NOTE | 2020-10-15 18:23 | US ---
EXAMINATION TYPE: US abdomen limited DATE OF EXAM: 10/15/2020 COMPARISON: Ct CLINICAL HISTORY: Evaluate for liver injury. Evaluate for liver injury. EXAM MEASUREMENTS: Liver Length: 14.3 cm Gallbladder Wall: 0.27 cm CBD: 0.57 cm Right Kidney: 11.6 x 5.4 x 6.5 cm Limited exam due to gas and rib shadow. Pancreas: Limited, not well seen. Liver: Appears to be coarse in echotexture. Limited due to gas and rib shadow. Gallbladder: Internal echoes seen. Measures 9.4 cm in length. Folds seen. Possible Phrygian cap. Evidence for sonographic Justice's sign: No CBD: Appears wnl Right Kidney: No hydronephrosis or masses seen. Limited. Images taken prone. IMPRESSION: No focal liver defect. No evidence of a laceration. No free fluid. No definite gallstones. Distended gallbladder.
--- NOTE | 2020-10-15 18:57 | CT ---
EXAMINATION TYPE: CT chest wo con DATE OF EXAM: 10/15/2020 COMPARISON: None HISTORY: Nodule. CT DLP: 221.7 mGycm Automated exposure control for dose reduction was used. Images obtained from the thoracic inlet to the diaphragm without contrast. There is some mild interstitial infiltrate right posterior lung base. There is no evidence of a pulmo nary mass. There is no mediastinal adenopathy. There are no hilar masses. There is some mild coronary artery calcification. There is no pericardial effusion. Thoracic aorta shows no aneurysm. The ascend ing aorta measures 3.4 cm. Thoracic spine is intact. There is no compression fracture. Specifically there is no evidence of the left upper lobe nodule. There is some spurring in the thorac ic spine. IMPRESSION: No evidence of a pulmonary nodule. Minimal interstitial density right lower lobe could relate to some mild fibrosis. Normal heart.
--- NOTE | 2020-10-15 19:16 | CT ---
EXAMINATION TYPE: CT knee RT wo con DATE OF EXAM: 10/15/2020 COMPARISON: None HISTORY: Fall. CT DLP: 141.9 mGycm Automated exposure control for dose reduction was used. Images were obtained from the distal femur to the proximal tibia without contrast. There is no evidence of knee joint effusion. I see no fracture nor dislocation. Joint spaces are slig htly narrowed. The patella is intact. The femoral and tibial condyles are intact. Fibula head is inta ct. There is moderate fatty marrow replacement in the femoral and tibial diaphysis. New graft impress ion No evidence of acute traumatic injury of the knee. There is some mild narrowing of the medial and lat eral joint spaces. No fracture. No joint effusion.
[2020-10-15] MEDS ORDERED: ASPIRIN 325 MG TAB PO STA (19:35)
[2020-10-15] MEDS ORDERED: LORazepam 1 MG TAB PO STA (19:37)
[2020-10-15 20:41] LABS: Appearance,Urine Clear (Clear); Bilirubin,Urine Negative (Negative); Blood,Urine Negative (Negative); Color,Urine Yellow; Glucose,Urine (UA) Negative (Negative); Ketones,Urine Trace (Negative); Leukocyte Esterase,Urine Negative (Negative); Nitrite,Urine Negative (Negative); Protein,Urine Negative (Negative); Specific Gravity,Urine 1.043 (1.001-1.035); Urobilinogen,Urine <2.0 mg/dL (<2.0)
[2020-10-15] MEDS: SODIUM CHLORIDE 0.9% 1,000 ML IV SCH (21:48)
[2020-10-16 08:00] LABS: Basophils % (A) 0 %; Eosinophils # (A) 0.1 k/uL (0-0.7); Eosinophils % (A) 1 %; HCT 36.9 % (39.0-53.0); HGB 12.5 gm/dL (13.0-17.5); Lymphocytes % (A) 17 %; MCH 34.7 pg (25.0-35.0); MCV 102.1 fL (80.0-100.0); Mean Platelet Volume 7.4; Monocytes # (A) 1.2 k/uL (0-1.0); Monocytes % (A) 10 %; Neutrophils # (A) 8.1 k/uL (1.3-7.7); Neutrophils % (A) 69 %; Platelet Count 148 k/uL (150-450); RBC 3.62 m/uL (4.30-5.90); RDW 12.7 % (11.5-15.5); WBC 11.7 k/uL (3.8-10.6)
[2020-10-16 08:27] LABS: African American GFR (CKD) >90 (>60 ml/min/1.73 sqM); Anion Gap 5 mmol/L; Blood Urea Nitrogen 28 mg/dL (9-20); Calcium 8.6 mg/dL (8.4-10.2); Carbon Dioxide 29 mmol/L (22-30); Chloride 103 mmol/L (98-107); Glucose 106 mg/dL (74-99); Non-African American GFR(CKD) >90 (>60 ml/min/1.73 sqM); Potassium 3.7 mmol/L (3.5-5.1); Sodium 137 mmol/L (137-145)
[2020-10-16 08:58] LABS: Cholesterol 132 mg/dL (<200); HDL Cholesterol 58 mg/dL (40-60); LDL Cholesterol,Calculated 62 mg/dL (0-99); Triglycerides 60 mg/dL (<150)
--- NOTE | 2020-10-16 11:34 | P.CNNES ---
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 According to the emergency department note is states that the patient has baseline difficulties with ambulation however he is been having increasing falls the last couple days. On 10/15/2020 the patient had a fall and skin his right knee. Then he had another event where he fell and hit his head on the wall but did not lose consciousness. The nursing facility in noted that the patient has increased weakness in the right leg. I called the public guardian multiple times that is on his face sheet and the office manager receptionist gave me different numbers of facility he resides in which I called and that facility stated he has not been there for 5 years and does not know much about him. I communicated with the patient via small marker board and he would verbalize what is being asked of him. He stated he has chronic right upper and lower extremity weakness. He has been having falls for the last 6-8 months but could not tell why. His right sided weakness has not worsened in the last 6 months. He does have lower back pain on the left but could not tell me if there is radiation of the back pain. He denies any acute new weakness or numbness, slurring his speech. He is legally blind out of both eyes and deaf. His home medication is Depakote 500mg 1 tab tid. He is on Ativan 0.5mg at 8am and 1430 and 0.25mg qhs. Upon reviewing the patient's medical record it seems that the patient had that neurofibromatosis that surgery at [facility]. 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 He has PEG tube in the past. Workup in the hospital consisted of: CT of the head is reported as no acute posterior matter changes. No acute hemorrhage. Stable appearance of the right frontal lobe cerebral mass and multiple calcified meningioma. CT cervical spine is a reported as degenerative changes throughout the cervical spine. No acute osseous abnormality. Note is made of calcification within the spinal cord in the posterior to the spinal cord in the upper cervical spine. These findings were present previously. In the body it is mentioned that the patient has disc space narrowing present diffusely. This greatest at C4/C5 and C6/C7 levels. Severe convertebral joint hypertrophy and forearm in all narrowing is present at C6-C7. Also it is mentioned that there is calcified left carotid artery aneurysm may be near the skull base to the level of C1. EKG is reported as normal sinus rhythm. Normal EKG. Initial white blood cells 8.3. Sodium is 136 and the repeat is 137. Initial serum glucose is 122. The calcium is 9.0. AST is 39 and ALT is 24. CK level is 200 (which is slightly elevated (normal <170). Lipid panel is triglyceride of 60, cholesterol 132, LDL 62 and HDL 58. TSH is 4.49. Urinalysis is negative for urinary tract infection. Valproic acid level is 64.9 which is therapeutic. Browning virus PCR was not detected. Review of Systems Review of system is limited but the per positive and negative as per HPI. 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 He takes his medication in applesauce or yogurt. He also has balance issues at times. He has been newly prescribed thyroid medication but has not started it yet. He has had hyponatremia which family believes physicians think it may be due to depakote. He had a CVA in August 2014. He has had abdominal pain in the past and overuse of stool softners. He has hemorrhoids. He has a seizure disorder with last seizure yrs ago-family believe seizure medication was working well. History of Any Multi-Drug Resistant Organisms: None Reported Additional Past Surgical History / Comment(s): 04/11/15 total colonoscopy with benign biopsy, ANEURYSM REPAIR(clip in place)-brain surgeries(CRANIOTOMY) due to neuro fibromitosis causing tumors,sx done at [facility] dr aishwarya harrison. Old L cochlear implant. Pt has had peg and trach in the . Past Anesthesia/Blood Transfusion Reactions: No Reported Reaction Past Psychological History: Anxiety, Depression Past Alcohol Use History: None Reported Past Drug Use History: Marijuana - Past Family History Father Family Medical History: COPD Additional Family Medical History / Comment(s): Father was a smoker and had emphysema. Mother Additional Family Medical History / Comment(s): Mother of lung disease. Medications and Allergies Home Medications Medication Instructions Recorded Confirmed Type Metoprolol Tartrate [Lopressor] 50 mg PO BID 02/14/15 10/15/20 History ARIPiprazole [Abilify] 20 mg PO DAILY 11/25/15 10/15/20 History Sertraline [Zoloft] 100 mg PO BID 11/25/15 10/15/20 History Levothyroxine Sodium [Synthroid] 100 mcg PO DAILY 02/12/20 10/15/20 History amLODIPine [Norvasc] 5 mg PO DAILY 02/12/20 10/15/20 History Divalproex [Depakote] 500 mg PO TID 10/15/20 10/15/20 History LORazepam [Ativan] 0.25 mg PO HS 10/15/20 10/15/20 History LORazepam [Ativan] 0.5 mg PO BID@0800,1430 10/15/20 10/15/20 History Allergies Allergy/AdvReac Type Severity Reaction Status Date / Time alprazolam [From Xanax] Allergy Unknown Verified 10/15/20 17:42 buspirone HCl [From BuSpar] Allergy Rash/Hives Verified 10/15/20 17:42 iodine Allergy Unknown Verified 10/15/20 17:42 Childhood haloperidol [From Haldol] AdvReac personality Verified 10/15/20 17:42 changes haloperidol lactate AdvReac personality Verified 10/15/20 17:42 [From Haldol] changes CT SCAN DYE Allergy Unknown Uncoded 10/15/20 17:42 Childhood Physical Examination - Vital Signs Vital Signs: Vital Signs Temp Pulse Pulse Resp BP BP Pulse Ox 10/16/20 03:20 97.9 F 67 16 108/58 99 10/16/20 02:00 18 10/15/20 23:10 98.1 F 75 18 127/69 100 02/17/21 21:30 18 10/15/20 21:20 98.1 F 65 16 117/71 100 10/15/20 19:52 65 16 111/72 97 10/15/20 16:29 64 16 118/81 100 10/15/20 13:21 98.3 F 65 16 102/67 100 Intake and Output 10/15/20 10/16/20 10/16/20 22:59 06:59 14:59 Other: # Voids 1 1 Weight 58.967 kg 56.9 kg GENERAL: The patient is lying in bed and is not in acute distress. CHEST: The heart rate is regular rate rhythm. No murmurs to auscultation. LUNG: Clear to auscultation bilaterally no wheezing noted throughout. Not labored breathing. ABDOMEN/GI: Bowel sounds present in all 4 quadrants. No tenderness to palpation throughout. NEUROLOGICAL: Limited because of patient cooperation. I communicated with the patient via small marker board and he verbalized what is written on the board. Higher mental function: The patient is awake, alert, oriented to self, place and time. Patient is following simple commands. No aphasia from the limited language. Cranial nerves: The pupils are round, equal and reactive to light. Visual villanueva are hard to assess since he is legally blind. Extraocular movement is horizontal nystagmus is seen upon looking to right, left and upward. Facial sensation is decreased over the entire left (he said its old). The patient has upper and lower facial weakness (predominately upper). Patient is deaf bi laterally. Tongue is midline and moved [id number] without any difficulty. Mild to moderate dysarthria. Should shrug was hard to assess because of cooperation. Motor: Gait is deferred. The strength is limited because of full cooperation but able to lift all extremities above gravity without drift. His strength is stronger over the left > right (old). The right side was at least 3-4/5 while left is 4+ . Bilateral hand new media strategist are 5- bilaterally. Normal tone and bulk. Cerebellum: Hard to assess because of cooperation. Sensation: Sensation is decreased over the right (old). Reflexes (right/left): 2+ throughout. Except lower are 1+ throughout. Plantars are mute bilaterally. Results PT of 11.0, INR 1.0 and PTT of 24.7. - Laboratory Findings CBC and BMP: 10/16/20 07:18 10/16/20 07:18 Abnormal Lab Findings: Abnormal Labs 10/15/20 10/15/20 10/15/20 13:43 13:43 20:30 WBC RBC 3.83 L Hgb 12.9 L Hct 38.4 L MCV 100.4 H Plt Count Neutrophils # Monocytes # Sodium 136 L Carbon Dioxide 32 H BUN 21 H Glucose 122 H Creatine Kinase 200 H Total Protein 6.2 L Ur Specific [place] 1.043 H Urine Ketones Trace H 10/16/20 10/16/20 07:18 07:18 WBC 11.7 H RBC 3.62 L Hgb 12.5 L Hct 36.9 L MCV 102.1 H Plt Count 148 L Neutrophils # 8.1 H Monocytes # 1.2 H Sodium Carbon Dioxide BUN 28 H Glucose 106 H Creatine Kinase Total Protein Ur Specific [place] Urine Ketones Assessment and Plan Assessment: This is a 55-year-old gentleman with history of stroke (2014), neuro- fibromatosis and hemangioma status post resection, brain aneurysm status post craniotomy, seizure, old right upper and lower extremity weakness that presents for recurrent falls and possible right leg weakness. According to the patient he has been having falls for the last 6-8 months and his right leg weakness has been same for at least 6 months and not worse. Recurrent falls: Unsure exact etiology Chronic right sided weakness (per patient he had it for a while and not worse than baseline) From history not due to acute or subacute stroke. Cervical spondylosis (greatest at C4/C5 and C6/C7 levels. 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 No acute hemorrhage. Stable appearance of the right frontal lobe cerebral mass and multiple calcified meningioma. CT cervical spine is a reported as degenerative changes throughout the cervical spine. No acute osseous abnormality. Note is made of calcification within the spinal cord in the posterior to the spinal cord in the upper cervical spine. These findings were present previously. In the body it is mentioned that the patient has disc space narrowing present diffusely. This greatest at C4/C5 and C6/C7 levels. Severe convertebral joint hypertrophy and forearm in all narrowing is present at C6-C7. Also it is mentioned that there is calcified left carotid artery aneurysm may be near the skull base to the level of C1. Lipid panel is triglyceride of 60, cholesterol 132, LDL 62 and HDL 58. TSH is 4.49. Valproic acid level is 64.9 which is therapeutic. From a neurology perspective because of his lower back pain that he stated his happening for the last 3 weeks I ordered the CT lumbar spine. He wants to pursue with the CT lumbar spine prior to ordering it. I feel the patient had so many surgeries in the past and I'm not in favor of have him having cervical or lumbar surgery in my opinion. But if the patient decides or the patient's decision makers decide to pursue with surgery if there is any significant spinal stenosis or myelopathy then that their choice and we can go that route. The patient was given Aspirin 325mg one time then was started on daily dose. His Depakote 500mg 1 tab tid is continued. Occupation therpay, physical therapy and speech therapy are consulted by ED and primary team. I am not get an order stroke workup since I don't feel this is a stroke from the patient history. Upon discharge the patient needs to follow-up with a neurologist in outpatient. Later the nurse notified me that she spoke with his brother and he stated that patient follows-up with a neurologist over at [facility]. The plan was discussed with the patient's nurse. Thank you for the consultation. Carter Hoang MD Neuro-hospitalist Time with Patient: Greater than 30
[2020-10-16] MEDS: LORazepam 0.5 MG TAB PO PRN ×2 (11:52→23:00)
[2020-10-16] MEDS: SODIUM CHLORIDE 0.9% 1,000 ML IV SCH ×2 (11:53→14:49)
[2020-10-16] MEDS: DIVALPROEX 500 MG TABLET.DR PO SCH ×3 (11:53→21:15)
[2020-10-16] MEDS: SERTRALINE 100 MG TAB PO SCH ×2 (11:53→21:16)
--- NOTE | 2020-10-16 14:42 | CT ---
EXAMINATION TYPE: CT lumbar spine wo con DATE OF EXAM: 10/16/2020 COMPARISON: None HISTORY: low back pain CT DLP: 562.[address] of the lumbar spine was performed. Bone and soft tissue window settings are submitted as well as coronal and sagittal reconstructions. L1-L2: Normal disc space height. No disc herniation protrusion or central stenosis. No facet joint arthropathy. No evidence for foraminal encroachment. L2-L3: Severe degenerative disc space narrowing with endplate sclerosis. Posterior disc bulge. Hypert rophy ligamentum flavum and facet joint arthropathy resulting in [id number] central stenosis. B ilateral foraminal encroachment. L3-L4: Mild to moderate degenerative disc space narrowing. Posterior disc bulge. Hypertrophy ligament um flavum and facet joint arthropathy resulting in mild central stenosis. Mild neural foraminal encro achment. L4-L5: Mild to moderate degenerative disc space narrowing. Posterior disc bulge. Hypertrophy ligament um flavum and facet joint arthropathy resulting in mild central stenosis. Mild neural foraminal encro achment. L5-S1: Normal disc space height. No disc herniation protrusion or central stenosis. No facet joint arthropathy. No evidence for foraminal encroachment. No paraspinal masses are identified. Lumbar segments are free if fracture. IMPRESSION: 1. Multilevel degenerative disc disease and central stenosis.
[2020-10-16] MEDS: MECLIZINE 12.5 MG TAB PO SCH ×3 (14:49→21:16)
[2020-10-16] MEDS: HEPARIN SODIUM,PORCINE 5,000 UNIT/ML 1 ML VIAL SQ SCH ×2 (14:52→21:16)
[2020-10-16] MEDS: ACETAMINOPHEN TAB 325 MG TAB PO PRN (14:52)
--- NOTE | 2020-10-16 15:12 | PN ---
PROGRESS NOTE DATE OF SERVICE: 10/16/2020 This 55-year-old gentleman admitted with fall and right-sided weakness is being closely monitored. The patient is seen by Neurology also. The patient had extensive multiple evaluation including CAT scan of the chest and knee which did not show any acute abnormality. Dr. Hoang is considering the possibility of chronic weakness and possible cervical spondylosis, also. The patient also had neurofibromatosis and hemangioma also. The patient also has history of stroke also. PAST MEDICAL HISTORY: Reviewed. REVIEW OF SYSTEMS: Could not be taken. CURRENT MEDICATIONS: Current medications are reviewed and include aspirin, Abilify, Depakote, Synthroid, Ativan, Antivert, Lopressor. Doses are reviewed. PHYSICAL EXAMINATION: Alert and oriented x3. Pulse 67, blood pressure 108/58, respiration 16, temperature 97.9, pulse ox 99% on room air. HEENT: Conjunctivae normal. NECK: No jugular venous distention. CARDIOVASCULAR: S1, S2 muffled. RESPIRATORY: Breath sounds diminished at the bases. A few scattered rhonchi. ABDOMEN: Soft. NERVOUS SYSTEM: Diffusely weak. LABS: WBC 11.7, hemoglobin 12.5, sodium 137, potassium 3.7. UA noted. COVID-19 is not detected. ASSESSMENT: 1. Recurrent falls and right-sided weakness, rule out acute cerebrovascular accident or transient ischemic attack. 2. Hyponatremia. 3. Elevated creatine kinase, rule out mild rhabdomyolysis. 4. Anemia, macrocytic anemia of chronic disease. 5. History of cerebrovascular accident, transient ischemic attack. 6. Fibromyalgia. 7. Hearing defect. 8. Hypertension. 9. History of seizure disorder. 10.Neurofibromatosis and brain aneurysm and surgery. 11.History of anxiety, depression, OCD. 12.Legal guardian. 13.Right frontal cerebral mass lesion with multiple calcified meningiomas. RECOMMENDATIONS AND DISCUSSION: This 55-year-old gentleman presented with multiple complex medical issues. Will monitor the patient closely. Continue the current medications, continue symptomatic treatment. Continue with antiplatelet agents. Continue the rest of the home medications. DVT prophylaxis. Otherwise, closely follow with Neurology. We will hold Norvasc at this time. Repeat labs will be ordered. Prognosis guarded because of multiple complex medical issues. Further recommendations to follow. MMODL / IJN: [id number] /
[2020-10-16] MEDS: THIAMINE 100 MG TAB PO SCH (18:56)
[2020-10-16] MEDS ORDERED: SERTRALINE 100 MG TAB PO SCH (21:00)
[2020-10-16] MEDS: METOPROLOL TARTRATE 50 MG TAB PO SCH (21:16)
[2020-10-16] MEDS: ASPIRIN 325 MG TAB PO SCH (21:28)
[2020-10-17] MEDS: PANTOPRAZOLE 40 MG TABLET PO SCH (06:39)
[2020-10-17] MEDS: THIAMINE 100 MG TAB PO SCH ×2 (06:39→15:41)
[2020-10-17] MEDS: LEVOTHYROXINE 100 MCG TAB PO SCH (06:39)
[2020-10-17] MEDS: SODIUM CHLORIDE 0.9% 1,000 ML IV SCH ×2 (06:40→16:41)
[2020-10-17 07:59] LABS: Basophils # (A) 0.1 k/uL (0-0.2); Basophils % (A) 1 %; Eosinophils # (A) 0.2 k/uL (0-0.7); Eosinophils % (A) 3 %; HCT 40.5 % (39.0-53.0); HGB 13.4 gm/dL (13.0-17.5); Lymphocytes # (A) 2.1 k/uL (1.0-4.8); Lymphocytes % (A) 26 %; MCH 33.5 pg (25.0-35.0); MCHC 33.2 g/dL (31.0-37.0); MCV 101.1 fL (80.0-100.0); Mean Platelet Volume 7.2; Monocytes # (A) 0.5 k/uL (0-1.0); Monocytes % (A) 7 %; Neutrophils # (A) 4.9 k/uL (1.3-7.7); Neutrophils % (A) 62 %; Platelet Count 166 k/uL (150-450); RDW 12.9 % (11.5-15.5); WBC 7.8 k/uL (3.8-10.6)
[2020-10-17 08:38] LABS: African American GFR (CKD) >90 (>60 ml/min/1.73 sqM); Anion Gap 4 mmol/L; Blood Urea Nitrogen 20 mg/dL (9-20); Calcium 8.6 mg/dL (8.4-10.2); Carbon Dioxide 33 mmol/L (22-30); Chloride 100 mmol/L (98-107); Glucose 92 mg/dL (74-99); Non-African American GFR(CKD) >90 (>60 ml/min/1.73 sqM); Potassium 4.7 mmol/L (3.5-5.1); Sodium 137 mmol/L (137-145)
[2020-10-17] MEDS: DIVALPROEX 500 MG TABLET.DR PO SCH ×3 (09:23→21:01)
[2020-10-17] MEDS: METOPROLOL TARTRATE 50 MG TAB PO SCH ×2 (09:23→21:01)
[2020-10-17] MEDS: LORazepam 0.5 MG TAB PO PRN ×2 (09:23→15:40)
[2020-10-17] MEDS: ASPIRIN 325 MG TAB PO SCH (09:23)
[2020-10-17] MEDS: MECLIZINE 12.5 MG TAB PO SCH ×3 (09:23→21:02)
[2020-10-17] MEDS: HEPARIN SODIUM,PORCINE 5,000 UNIT/ML 1 ML VIAL SQ SCH ×2 (09:23→21:09)
[2020-10-17] MEDS: SERTRALINE 100 MG TAB PO SCH ×2 (09:23→21:01)
[2020-10-17] MEDS ORDERED: LOPERAMIDE 2 MG CAP PO PRN (16:24)
--- NOTE | 2020-10-17 16:29 | P.PN ---
Subjective Progress Note Date: 10/17/20 Principal diagnosis: Right leg weakness; acute CVA. 55-year-old gentleman with history of stroke (2015), neuro-fibromatosis and hemangioma status post resection, brain aneurysm status post craniotomy, seizure, old right upper and lower extremity weakness that presents for recurre nt falls and possible right leg weakness. According to the patient he has been having falls for the last 6-8 months and his right leg weakness has been same for at least 6 months and not worse. CT of the head is reported as no acute posterior matter changes. No acute hemorrhage. Stable appearance of the right frontal lobe cerebral mass and multiple calcified meningioma. CT cervical spine is a reported as degenerative changes throughout the cervical spine. No acute osseous abnormality. Note is made of calcification within the spinal cord in the posterior to the spinal cord in the upper cervical spine. These findings were present previously. In the body it is mentioned that the patient has disc space narrowing present diffusely. This greatest at C4/C5 and C6/C7 levels. Severe convertebral joint hypertrophy and forearm in all narrowing is present at C6-C7. Also it is mentioned that there is calcified left carotid artery aneurysm may be near the skull base to the level of C1. Lipid panel is triglyceride of 60, cholesterol 132, LDL 62 and HDL 58. TSH is 4.49. Valproic acid level is 64.9 which is therapeutic. Objective - Vital Signs Vital signs: Vital Signs Temp 97.9 F 10/17/20 08:00 Pulse 65 10/17/20 08:00 Resp 17 10/17/20 08:00 BP 122/65 10/17/20 08:00 Pulse Ox 97 10/17/20 08:00 Intake & Output 10/16/20 10/17/20 10/17/20 18:59 06:59 18:59 Intake Total 880 1200 Output Total 1425 400 Balance 880 -225 -400 Weight 56.9 kg 58.6 kg Intake: Intake, IV Titration 400 1200 Amount Sodium Chloride 0.9% 1, 400 1200 000 ml @ 100 mls/hr IV . Q10H PEDRO Rx#:[id number] Oral 480 Output: Urine 1425 400 Other: Voiding Method Bedside Commode Bedside Commode Bedside Commode Urinal Urinal Urinal # Voids 1 1 1 - Exam REVIEW OF SYSTEMS: CONSTITUTIONAL: No fever, no malaise, no fatigue. HEENT: No recent visual problems or hearing problems. Denied any sore throat. CARDIOVASCULAR: No chest pain, orthopnea, PND, no palpitations, no syncope. PULMONARY: No shortness of breath, no cough, no hemoptysis. GASTROINTESTINAL: No diarrhea, no nausea, no vomiting, no abdominal pain. NEUROLOGICAL: No headaches, no weakness, no numbness. HEMATOLOGICAL: Denies any bleeding or petechiae. GENITOURINARY: Denies any burning micturition, frequency, or urgency. MUSCULOSKELETAL/RHEUMATOLOGICAL: Denies any joint pain, swelling, or any muscle pain. ENDOCRINE: Denies any polyuria or polydipsia. The rest of the 14-point review of systems is negative. - Labs CBC & Chem 7: 10/17/20 07:21 10/17/20 07:21 Labs: Abnormal Lab Results - Last 24 Hours (Table) 10/17/20 10/17/20 Range/Units 07:21 07:21 RBC 4.00 L (4.30-5.90) m/uL MCV 101.1 H (80.0-100.0) fL Carbon Dioxide 33 H (22-30) mmol/L Assessment and Plan Assessment: 1. Right-sided weakness; acute CVA ruled out - Patient have a detailed workup done which has been unremarkable so far; CT of the brain revealing stable appearance of right frontal lobe cerebral mass and multiple Hickman V meningiomas - Neurology on board and recommending to continue with daily aspirin 325 mg - PT/OT on board with recommendations of possible skilled rehab 2. Recurrent falls/possible debility; patient evaluated by PT/OT; plans for transfer to skilled rehab on 10/20/2020 3. Cervical spondylosis/ lumbar spinal stenosis; patient had a CT of lumbar spine completed which does show areas of mild spinal stenosis without myelopathy 4. Seizure disorder; Depakote 500 mg by mouth 3 times a day 5. Hypothyroidism; levothyroxin 100 MCG daily 6. Hypertension; stable on home dose of metoprolol and amlodipine 7. Legally blind DVT prophylaxis; SCDs/subcu heparin CODE STATUS; full code
[2020-10-17] MEDS: FOLIC ACID 1 MG TAB PO SCH (17:14)
[2020-10-17] MEDS: MULTIVITAMINS, THERA 1 EACH TAB PO SCH (17:14)
[2020-10-17 20:21] LABS: Glucose,Whole Blood 93 mg/dL (75-99)
[2020-10-18] MEDS: THIAMINE 100 MG TAB PO SCH ×2 (06:15→16:06)
[2020-10-18] MEDS: LEVOTHYROXINE 100 MCG TAB PO SCH (06:15)
[2020-10-18] MEDS: PANTOPRAZOLE 40 MG TABLET PO SCH (06:15)
[2020-10-18] MEDS: ACETAMINOPHEN TAB 325 MG TAB PO PRN ×2 (06:22→16:05)
[2020-10-18 07:30] LABS: Basophils % (A) 1 %; Eosinophils # (A) 0.3 k/uL (0-0.7); Eosinophils % (A) 4 %; HCT 40.8 % (39.0-53.0); HGB 13.2 gm/dL (13.0-17.5); Lymphocytes # (A) 2.1 k/uL (1.0-4.8); Lymphocytes % (A) 25 %; MCH 32.9 pg (25.0-35.0); MCHC 32.4 g/dL (31.0-37.0); MCV 101.5 fL (80.0-100.0); Mean Platelet Volume 7.2; Monocytes # (A) 0.7 k/uL (0-1.0); Monocytes % (A) 9 %; Neutrophils # (A) 5.3 k/uL (1.3-7.7); Neutrophils % (A) 61 %; Platelet Count 169 k/uL (150-450); RBC 4.02 m/uL (4.30-5.90); RDW 12.9 % (11.5-15.5); WBC 8.6 k/uL (3.8-10.6)
[2020-10-18 07:39] LABS: African American GFR (CKD) >90 (>60 ml/min/1.73 sqM); Anion Gap 3 mmol/L; Blood Urea Nitrogen 19 mg/dL (9-20); Carbon Dioxide 35 mmol/L (22-30); Chloride 96 mmol/L (98-107); Glucose 92 mg/dL (74-99); Non-African American GFR(CKD) >90 (>60 ml/min/1.73 sqM); Potassium 4.6 mmol/L (3.5-5.1); Sodium 134 mmol/L (137-145)
[2020-10-18] MEDS: SERTRALINE 100 MG TAB PO SCH ×2 (08:22→21:14)
[2020-10-18] MEDS: HEPARIN SODIUM,PORCINE 5,000 UNIT/ML 1 ML VIAL SQ SCH ×2 (08:22→21:14)
[2020-10-18] MEDS: LORazepam 0.5 MG TAB PO PRN ×3 (08:22→21:30)
[2020-10-18] MEDS: MULTIVITAMINS, THERA 1 EACH TAB PO SCH (08:23)
[2020-10-18] MEDS: DIVALPROEX 500 MG TABLET.DR PO SCH ×3 (08:23→21:14)
[2020-10-18] MEDS: METOPROLOL TARTRATE 50 MG TAB PO SCH (08:23)
[2020-10-18] MEDS: ASPIRIN 325 MG TAB PO SCH (08:23)
[2020-10-18] MEDS: FOLIC ACID 1 MG TAB PO SCH (08:23)
[2020-10-18] MEDS: MECLIZINE 12.5 MG TAB PO SCH ×3 (08:34→21:14)
[2020-10-18] MEDS: SODIUM CHLORIDE 0.9% 1,000 ML IV SCH ×3 (12:37→17:58)
--- NOTE | 2020-10-18 14:12 | P.PN ---
Subjective Progress Note Date: 10/17/20 I spoke with the patient's nurse aide and she stated that the patient has been now walk-in with the physical therapy and the he's walked with a walker minimally he is a one person assist. There is no further falls. The patient was seen today and he stated that he is doing well. Objective - Vital Signs Vital signs: Vital Signs Temp 98.0 F 10/18/20 12:00 Pulse 70 10/18/20 12:00 Resp 14 10/18/20 12:00 BP 125/58 10/18/20 12:00 Pulse Ox 95 10/18/20 12:00 Intake & Output 10/17/20 10/18/20 10/18/20 18:59 06:59 18:59 Intake Total 720 240 Output Total 700 1075 Balance 20 -1075 240 Weight 58 kg Intake: Oral 720 240 Output: Urine 600 975 Stool 100 100 Other: Voiding Method Bedside Commode Bedside Commode Bedside Commode Urinal Urinal Urinal # Voids 1 1 1 - Exam GENERAL: The patient is lying in bed and is not in acute distress. NEUROLOGICAL: Limited because of patient cooperation. I communicated with the patient via small marker board and he verbalized what is written on the board. Higher mental function: The patient is awake, alert, oriented to self, place and time. Patient is following simple commands. No aphasia from the limited language. Cranial nerves: The pupils are round, equal and reactive to light. Visual villanueva are hard to assess since he is legally blind. Extraocular movement is horizontal nystagmus is seen upon looking to right, left and upward. Facial sensation is decreased over the entire left (he said its old). The patient has upper and lower facial weakness (predominately upper). Patient is deaf bilaterally. Tongue is midline and moved [id number] without any difficulty. Mild to moderate dysarthria. Should shrug was hard to assess because of cooperation. Motor: Gait is deferred. The strength is limited because of full cooperation but able to lift all extremities above gravity without drift. His strength is stronger over the left > right (old). The right side was at least 3-4/5 while left is 4+ . Bilateral hand promotional model are 5- bilaterally. Normal tone and bulk. Cerebellum: Hard to assess because of cooperation. Sensation: Sensation is decreased over the right (old). Reflexes (right/left): 2+ throughout. Except lower are 1+ throughout. Plantars are mute bilaterally. - Labs CBC & Chem 7: 10/18/20 07:06 10/18/20 07:06 Labs: Abnormal Lab Results - Last 24 Hours (Table) 10/18/20 10/18/20 Range/Units 07:06 07:06 RBC 4.02 L (4.30-5.90) m/uL MCV 101.5 H (80.0-100.0) fL Sodium 134 L (137-145) mmol/L Chloride 96 L (98-107) mmol/L Carbon Dioxide 35 H (22-30) mmol/L Assessment and Plan Assessment: This is a 55-year-old gentleman with history of stroke (2014), neurofibromatosis and hemangioma status post resection, brain aneurysm status post craniotomy, seizure, old right upper and lower extremity weakness that presents for recurrent falls and possible right leg weakness. According to the patient he has been having falls for the last 6-8 months and his right leg weakness has been same for at least 6 months and not worse. Recurrent falls Chronic right sided weakness (per patient he had it for a while and not worse than baseline) From history not due to acute or subacute stroke. Cervical spondylosis (greatest at C4/C5 and C6/C7 levels. 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 No acute hemorrhage. Stable appearance of the right frontal lobe cerebral mass and multiple calcified meningioma. CT cervical spine is a reported as degenerative changes throughout the cervical spine. No acute osseous abnormality. Note is made of calcification within the spinal cord in the posterior to the spinal cord in the upper cervical spine. These findings were present previously. In the body it is mentioned that the patient has disc space narrowing present diffusely. This greatest at C4/C5 and C6/C7 levels. Severe convertebral joint hypertrophy and forearm in all narrowing is present at C6-C7. Also it is mentioned that there is calcified left carotid artery aneurysm may be near the skull base to the level of C1. CT lumbar spine is reported as multilevel degenerative disc disease and central stenosis. It is reported that the patient has L2-L3 severe degenerative disc space narrowing with endplate sclerosis. And L3-L4 patient has mild to moderate degenerative disc space narrowing and L4-L5 patient has mild to moderate degenerative disc space narrowing Lipid panel is triglyceride of 60, cholesterol 132, LDL 62 and HDL 58. TSH is 4.49. Valproic acid level is 64.9 which is therapeutic. Occupation therpay, physical therapy and speech therapy are on board. The patient was given Aspirin 325mg one time then was started on daily dose. I am not inclined that this is a stroke or TIA so from a neurological standpoint he does not need to be on antiplatelet. Continue Depakote 500mg 1 tab tid. The patient needs to follow-up with his neurologist and neurosurgeon as outpatient within 1-2 weeks There is no further work-up needed at this time The plan was discussed with the patient's nurse. Carter Hoang MD Neuro-hospitalist Time with Patient: Less than 30
--- NOTE | 2020-10-18 16:15 | P.PN ---
Subjective Progress Note Date: 10/18/20 Principal diagnosis: Right leg weakness; acute CVA. 55-year-old gentleman with history of stroke (2015), neuro-fibromatosis and hemangioma status post resection, brain aneurysm status post craniotomy, seizure, old right upper and lower extremity weakness that presents for recurre nt falls and possible right leg weakness. According to the patient he has been having falls for the last 6-8 months and his right leg weakness has been same for at least 6 months and not worse. CT of the head is reported as no acute posterior matter changes. No acute hemorrhage. Stable appearance of the right frontal lobe cerebral mass and multiple calcified meningioma. CT cervical spine is a reported as degenerative changes throughout the cervical spine. No acute osseous abnormality. Note is made of calcification within the spinal cord in the posterior to the spinal cord in the upper cervical spine. These findings were present previously. In the body it is mentioned that the patient has disc space narrowing present diffusely. This greatest at C4/C5 and C6/C7 levels. Severe convertebral joint hypertrophy and forearm in all narrowing is present at C6-C7. Also it is mentioned that there is calcified left carotid artery aneurysm may be near the skull base to the level of C1. Lipid panel is triglyceride of 60, cholesterol 132, LDL 62 and HDL 58. TSH is 4.49. Valproic acid level is 64.9 which is therapeutic. 10/18/2020 Patient is seen and evaluated with sitter at bedside; discussed with nursing staff and no specific complaints Vital signs remained stable with a temperature 98.0, pulse 70, respiration 14 and blood pressure 125.58 with SpO2 of 95% on room air Labs are reviewed and stable Patient is pending transfer to skilled rehab once arrangements are made most likely on Tuesday Objective - Vital Signs Vital signs: Vital Signs Temp 97.7 F 10/17/20 19:33 Pulse 63 10/18/20 04:00 Resp 18 10/18/20 04:00 BP 143/58 10/18/20 04:00 Pulse Ox 97 10/18/20 04:00 Intake & Output 10/17/20 10/18/20 10/18/20 18:59 06:59 18:59 Intake Total 720 240 Output Total 700 1075 Balance 20 -1075 240 Weight 58 kg Intake: Oral 720 240 Output: Urine 600 975 Stool 100 100 Other: Voiding Method Bedside Commode Bedside Commode Urinal Urinal # Voids 1 1 2 - Exam REVIEW OF SYSTEMS: CONSTITUTIONAL: No fever, no malaise, no fatigue. HEENT: No recent visual problems or hearing problems. Denied any sore throat. CARDIOVASCULAR: No chest pain, orthopnea, PND, no palpitations, no syncope. PULMONARY: No shortness of breath, no cough, no hemoptysis. GASTROINTESTINAL: No diarrhea, no nausea, no vomiting, no abdominal pain. NEUROLOGICAL: No headaches, no weakness, no numbness. HEMATOLOGICAL: Denies any bleeding or petechiae. GENITOURINARY: Denies any burning micturition, frequency, or urgency. MUSCULOSKELETAL/RHEUMATOLOGICAL: Denies any joint pain, swelling, or any muscle pain. ENDOCRINE: Denies any polyuria or polydipsia. The rest of the 14-point review of systems is negative. - Labs CBC & Chem 7: 10/18/20 07:06 10/18/20 07:06 Labs: Abnormal Lab Results - Last 24 Hours (Table) 10/18/20 10/18/20 Range/Units 07:06 07:06 RBC 4.02 L (4.30-5.90) m/uL MCV 101.5 H (80.0-100.0) fL Sodium 134 L (137-145) mmol/L Chloride 96 L (98-107) mmol/L Carbon Dioxide 35 H (22-30) mmol/L Assessment and Plan Assessment: 1. Right-sided weakness; acute CVA ruled out - Patient have a detailed workup done which has been unremarkable so far; CT of the brain revealing stable appearance of right frontal lobe cerebral mass and multiple [place] V meningiomas - Neurology on board and recommending to continue with daily aspirin 325 mg - PT/OT on board with recommendations of possible skilled rehab 2. Recurrent falls/possible debility; patient evaluated by PT/OT; plans for transfer to skilled rehab on 10/20/2020 3. Cervical spondylosis/ lumbar spinal stenosis; patient had a CT of lumbar spine completed which does show areas of mild spinal stenosis without myelopathy 4. Seizure disorder; Depakote 500 mg by mouth 3 times a day 5. Hypothyroidism; levothyroxin 100 MCG daily 6. Hypertension; stable on home dose of metoprolol and amlodipine 7. Legally blind DVT prophylaxis; SCDs/subcu heparin CODE STATUS; full code
[2020-10-19] MEDS: METOPROLOL TARTRATE 50 MG TAB PO SCH ×3 (03:59→21:06)
[2020-10-19] MEDS: SODIUM CHLORIDE 0.9% 1,000 ML IV SCH ×2 (04:00→15:38)
[2020-10-19] MEDS: ACETAMINOPHEN TAB 325 MG TAB PO PRN (04:22)
[2020-10-19] MEDS: LEVOTHYROXINE 100 MCG TAB PO SCH (06:11)
[2020-10-19] MEDS: PANTOPRAZOLE 40 MG TABLET PO SCH (06:12)
[2020-10-19] MEDS: THIAMINE 100 MG TAB PO SCH ×2 (06:12→16:13)
[2020-10-19 07:03] LABS: Basophils # (A) 0.1 k/uL (0-0.2); Basophils % (A) 1 %; Eosinophils # (A) 0.3 k/uL (0-0.7); Eosinophils % (A) 4 %; HCT 37.6 % (39.0-53.0); HGB 12.8 gm/dL (13.0-17.5); Lymphocytes # (A) 1.6 k/uL (1.0-4.8); Lymphocytes % (A) 21 %; MCH 34.3 pg (25.0-35.0); Mean Platelet Volume 7.1; Monocytes # (A) 0.7 k/uL (0-1.0); Monocytes % (A) 9 %; Neutrophils % (A) 64 %; Platelet Count 163 k/uL (150-450); RBC 3.72 m/uL (4.30-5.90); RDW 12.9 % (11.5-15.5); WBC 7.8 k/uL (3.8-10.6)
[2020-10-19 07:16] LABS: African American GFR (CKD) >90 (>60 ml/min/1.73 sqM); Anion Gap 5 mmol/L; Blood Urea Nitrogen 26 mg/dL (9-20); Calcium 8.5 mg/dL (8.4-10.2); Carbon Dioxide 31 mmol/L (22-30); Chloride 99 mmol/L (98-107); Glucose 95 mg/dL (74-99); Non-African American GFR(CKD) >90 (>60 ml/min/1.73 sqM); Potassium 3.8 mmol/L (3.5-5.1); Sodium 135 mmol/L (137-145)
[2020-10-19] MEDS: SERTRALINE 100 MG TAB PO SCH ×2 (09:18→21:06)
[2020-10-19] MEDS: ASPIRIN 325 MG TAB PO SCH (09:18)
[2020-10-19] MEDS: LORazepam 0.5 MG TAB PO PRN ×2 (09:18→16:16)
[2020-10-19] MEDS: DIVALPROEX 500 MG TABLET.DR PO SCH ×3 (09:18→21:06)
[2020-10-19] MEDS: HEPARIN SODIUM,PORCINE 5,000 UNIT/ML 1 ML VIAL SQ SCH ×2 (09:20→21:45)
[2020-10-19] MEDS: FOLIC ACID 1 MG TAB PO SCH (09:21)
[2020-10-19] MEDS: MECLIZINE 12.5 MG TAB PO SCH ×3 (09:21→21:06)
[2020-10-19] MEDS: MULTIVITAMINS, THERA 1 EACH TAB PO SCH (09:23)
--- NOTE | 2020-10-19 13:57 | P.PN ---
Subjective Progress Note Date: 10/19/20 Principal diagnosis: Right leg weakness; acute CVA. 55-year-old gentleman with history of stroke (2015), neuro-fibromatosis and hemangioma status post resection, brain aneurysm status post craniotomy, seizure, old right upper and lower extremity weakness that presents for recurre nt falls and possible right leg weakness. According to the patient he has been having falls for the last 6-8 months and his right leg weakness has been same for at least 6 months and not worse. CT of the head is reported as no acute posterior matter changes. No acute hemorrhage. Stable appearance of the right frontal lobe cerebral mass and multiple calcified meningioma. CT cervical spine is a reported as degenerative changes throughout the cervical spine. No acute osseous abnormality. Note is made of calcification within the spinal cord in the posterior to the spinal cord in the upper cervical spine. These findings were present previously. In the body it is mentioned that the patient has disc space narrowing present diffusely. This greatest at C4/C5 and C6/C7 levels. Severe convertebral joint hypertrophy and forearm in all narrowing is present at C6-C7. Also it is mentioned that there is calcified left carotid artery aneurysm may be near the skull base to the level of C1. Lipid panel is triglyceride of 60, cholesterol 132, LDL 62 and HDL 58. TSH is 4.49. Valproic acid level is 64.9 which is therapeutic. 10/18/2020 Patient is seen and evaluated with sitter at bedside; discussed with nursing staff and no specific complaints Vital signs remained stable with a temperature 98.0, pulse 70, respiration 14 and blood pressure 125.58 with SpO2 of 95% on room air Labs are reviewed and stable Patient is pending transfer to skilled rehab once arrangements are made most likely on Tuesday10/18/2020 Patient is seen and evaluated with family members at bedside; patient is awake and alert and sitting up in bed; no specific complaints reported per nursing staff Patient is set up to be transferred to [facility] for skilled rehab with possible transition in next 24 hours Objective - Vital Signs Vital signs: Vital Signs Temp 98.0 F 10/18/20 20:00 Pulse 64 10/19/20 04:00 Resp 18 10/19/20 04:00 BP 103/66 10/19/20 04:00 Pulse Ox 96 10/19/20 04:00 Intake & Output 10/18/20 10/19/2021 18:59 06:59 18:59 Intake Total 720 180 Output Total 300 Balance 720 -300 180 Weight 58.2 kg Intake: Oral 720 180 Output: Urine 300 Other: Voiding Method Bedside Commode Bedside Commode Urinal Urinal # Voids 1 1 # Bowel Movements 0 - Exam REVIEW OF SYSTEMS: CONSTITUTIONAL: No fever, no malaise, no fatigue. HEENT: No recent visual problems or hearing problems. Denied any sore throat. CARDIOVASCULAR: No chest pain, orthopnea, PND, no palpitations, no syncope. PULMONARY: No shortness of breath, no cough, no hemoptysis. GASTROINTESTINAL: No diarrhea, no nausea, no vomiting, no abdominal pain. NEUROLOGICAL: No headaches, no weakness, no numbness. HEMATOLOGICAL: Denies any bleeding or petechiae. GENITOURINARY: Denies any burning micturition, frequency, or urgency. MUSCULOSKELETAL/RHEUMATOLOGICAL: Denies any joint pain, swelling, or any muscle pain. ENDOCRINE: Denies any polyuria or polydipsia. The rest of the 14-point review of systems is negative. - Labs CBC & Chem 7: 10/19/20 06:35 10/19/20 06:35 Labs: Abnormal Lab Results - Last 24 Hours (Table) 10/19/20 10/19/20 Range/Units 06:35 06:35 RBC 3.72 L (4.30-5.90) m/uL Hgb 12.8 L (13.0-17.5) gm/dL Hct 37.6 L (39.0-53.0) % MCV 101.0 H (80.0-100.0) fL Sodium 135 L (137-145) mmol/L Carbon Dioxide 31 H (22-30) mmol/L BUN 26 H (9-20) mg/dL Assessment and Plan Assessment: 1. Right-sided weakness; acute CVA ruled out - Patient have a detailed workup done which has been unremarkable so far; CT of the brain revealing stable appearance of right frontal lobe cerebral mass and multiple Leslie V meningiomas - Neurology on board and recommending to continue with daily aspirin 325 mg - PT/OT on board with recommendations of possible skilled rehab 2. Recurrent falls/possible debility; patient evaluated by PT/OT; plans for transfer to skilled rehab on 10/20/2020 3. Cervical spondylosis/ lumbar spinal stenosis; patient had a CT of lumbar spine completed which does show areas of mild spinal stenosis without myelopathy 4. Seizure disorder; Depakote 500 mg by mouth 3 times a day 5. Hypothyroidism; levothyroxin 100 MCG daily 6. Hypertension; stable on home dose of metoprolol and amlodipine 7. Legally blind DVT prophylaxis; SCDs/subcu heparin CODE STATUS; full code
[2020-10-20] MEDS: ACETAMINOPHEN TAB 325 MG TAB PO PRN ×2 (03:06→11:53)
[2020-10-20] MEDS: THIAMINE 100 MG TAB PO SCH ×2 (06:18→14:25)
[2020-10-20] MEDS: LEVOTHYROXINE 100 MCG TAB PO SCH (06:18)
[2020-10-20] MEDS: PANTOPRAZOLE 40 MG TABLET PO SCH (06:18)
[2020-10-20] MEDS: SODIUM CHLORIDE 0.9% 1,000 ML IV SCH ×2 (06:20→09:33)
[2020-10-20 07:58] LABS: Basophils # (A) 0.1 k/uL (0-0.2); Basophils % (A) 1 %; Eosinophils # (A) 0.3 k/uL (0-0.7); Eosinophils % (A) 3 %; HCT 36.8 % (39.0-53.0); HGB 12.3 gm/dL (13.0-17.5); Lymphocytes # (A) 1.6 k/uL (1.0-4.8); Lymphocytes % (A) 22 %; MCH 33.2 pg (25.0-35.0); MCHC 33.4 g/dL (31.0-37.0); MCV 99.4 fL (80.0-100.0); Mean Platelet Volume 7.2; Monocytes # (A) 0.7 k/uL (0-1.0); Monocytes % (A) 10 %; Neutrophils # (A) 4.6 k/uL (1.3-7.7); Neutrophils % (A) 62 %; Platelet Count 178 k/uL (150-450); RDW 13.5 % (11.5-15.5); WBC 7.4 k/uL (3.8-10.6)
[2020-10-20 08:09] LABS: African American GFR (CKD) >90 (>60 ml/min/1.73 sqM); Anion Gap 3 mmol/L; Blood Urea Nitrogen 24 mg/dL (9-20); Calcium 8.7 mg/dL (8.4-10.2); Carbon Dioxide 32 mmol/L (22-30); Chloride 97 mmol/L (98-107); Glucose 89 mg/dL (74-99); Non-African American GFR(CKD) >90 (>60 ml/min/1.73 sqM); Potassium 4.4 mmol/L (3.5-5.1); Sodium 132 mmol/L (137-145)
--- NOTE | 2020-10-20 08:31 | XR ---
EXAMINATION TYPE: XR ribs RT DATE OF EXAM: 10/20/2020 COMPARISON: 10/15/2020 HISTORY: 55-year-old male right upper chest pain and tenderness after fall TECHNIQUE: 4 views FINDINGS: No displaced right rib fracture is seen. No consolidation, pneumothorax, or pleural effusio n seen within the right hemithorax. IMPRESSION: No displaced right rib fracture seen.
--- NOTE | 2020-10-20 09:29 | P.PN ---
Subjective 55-year-old gentleman with history of stroke (2015), neuro-fibromatosis and hemangioma status post resection, brain aneurysm status post craniotomy, seizure, old right upper and lower extremity weakness that presents for recurrent falls and possible right leg weakness. According to the patient he has been having falls for the last 6-8 months and his right leg weakness has been same for at least 6 months and not worse. CT of the head is reported as no acute posterior matter changes. No acute hemorrhage. Stable appearance of the right frontal lobe cerebral mass and multiple calcified meningioma. CT cervical spine is a reported as degenerative changes throughout the cervical spine. No acute osseous abnormality. Note is made of calcification within the spinal cord in the posterior to the spinal cord in the upper cervical spine. These findings were present previously. In the body it is mentioned that the patient has disc space narrowing present diffusely. This greatest at C4/C5 and C6/C7 levels. Severe convertebral joint hypertrophy and forearm in all narrowing is present at C6-C7. Also it is mentioned that there is calcified left carotid artery aneurysm may be near the skull base to the level of C1. Lipid panel is triglyceride of 60, cholesterol 132, LDL 62 and HDL 58. TSH is 4.49. Valproic acid level is 64.9 which is therapeutic. 10/18/2020 Patient is seen and evaluated with sitter at bedside; discussed with nursing staff and no specific complaints Vital signs remained stable with a temperature 98.0, pulse 70, respiration 14 and blood pressure 125.58 with SpO2 of 95% on room air Labs are reviewed and stable Patient is pending transfer to skilled rehab once arrangements are made most lik [facility] on Tuesday10/19/2020 Patient is seen and evaluated with family members at bedside; patient is awake and alert and sitting up in bed; no specific complaints reported per nursing staff Patient is set up to be transferred to [facility] for skilled rehab with possible transition in next 24 hours 10/20/2020 patient have difficulty hearing with no hearing aid, Medication was done through writing Patient is complaining of from right upper chest wall pain and tenderness, pat ient states that it happened since fall . No shortness of breath or coughing. No leg pain. Right hip x-ray showing nondisplaced fracture. We will do serial troponins and EKG. Also check basic metabolic panel and d- dimer No other complaints. Patient agrees to go to rehab when he is medically ready Objective - Vital Signs Vital signs: Vital Signs Temp 98.1 F 10/20/20 03:30 Pulse 61 10/20/20 03:30 Resp 16 10/20/20 03:30 BP 104/64 10/20/20 03:30 Pulse Ox 97 10/20/20 03:30 Intake & Output 10/19/20 10/20/20 10/20/20 18:59 06:59 18:59 Intake Total 660 Output Total 400 1150 Balance 260 -1150 Weight 59 kg Intake: Oral 660 Output: Urine 300 1150 Stool 100 Other: Voiding Method Bedside Commode Bedside Commode Urinal Urinal # Voids 1 - Exam GENERAL: The patient is alert and oriented x3, not in any acute distress. Well developed, well nourished. HEENT: Pupils are round and equally reacting to light. EOMI. No scleral icterus. No conjunctival pallor. Normocephalic, atraumatic. No pharyngeal erythema. No thyromegaly. CARDIOVASCULAR: S1 and S2 present. No murmurs, rubs, or gallops. -PULMONARY: Chest is clear to auscultation, no wheezing or crackles. Right upper chest wall tenderness ABDOMEN: Soft, nontender, nondistended, normoactive bowel sounds. No palpable organomegaly. MUSCULOSKELETAL: No joint swelling or deformity. EXTREMITIES: No cyanosis, clubbing, or pedal edema. NEUROLOGICAL: Gross neurological examination did not reveal any focal deficits. SKIN: No rashes. no petechiae. Right upper chest wall tenderness - Labs CBC & Chem 7: 10/20/20 07:39 10/20/20 07:39 Labs: Abnormal Lab Results - Last 24 Hours (Table) 10/20/20 10/20/20 Range/Units 07:39 07:39 RBC 3.70 L (4.30-5.90) m/uL Hgb 12.3 L (13.0-17.5) gm/dL Hct 36.8 L (39.0-53.0) % Sodium 132 L (137-145) mmol/L Chloride 97 L (98-107) mmol/L Carbon Dioxide 32 H (22-30) mmol/L BUN 24 H (9-20) mg/dL Assessment and Plan Assessment: 1. Chronic Right-sided weakness; acute CVA ruled out - Patient have a detailed workup done which has been unremarkable so far; CT of the brain revealing stable appearance of right frontal lobe cerebral mass and multiple Allison V meningiomas. - Neurology on board and recommending to continue with daily aspirin 325 mg. No further neurological workup however they recommended patient to follow up with neurologist and the neurosurgeon as an outpatient - PT/OT on board with recommendations of skilled rehab 2. Recurrent falls/possible debility; patient evaluated by PT/OT; plans for transfer to skilled rehab when medically ready 3. Cervical spondylosis/ lumbar spinal stenosis; patient had a CT of lumbar spine completed which does show areas of mild spinal stenosis without myelopathy 4. Seizure disorder; Depakote 500 mg by mouth 3 times a day 5. Hypothyroidism; levothyroxin 100 MCG daily 6. Hypertension; stable on home dose of metoprolol and amlodipine 7., However patient Can get through reading 8. Right upper chest pain and tenderness. Repeat x-rays negative. We'll do serial troponins and EKG. Check d-dimer. DVT prophylaxis; SCDs/subcu heparin CODE STATUS; full code Prognosis is guarded
[2020-10-20] MEDS: ASPIRIN 325 MG TAB PO SCH (09:31)
[2020-10-20] MEDS: MULTIVITAMINS, THERA 1 EACH TAB PO SCH (09:32)
[2020-10-20] MEDS: FOLIC ACID 1 MG TAB PO SCH (09:32)
[2020-10-20] MEDS: METOPROLOL TARTRATE 50 MG TAB PO SCH ×2 (09:32→20:35)
[2020-10-20] MEDS: SERTRALINE 100 MG TAB PO SCH ×2 (09:32→20:35)
[2020-10-20] MEDS: LORazepam 0.5 MG TAB PO PRN ×3 (09:32→20:35)
[2020-10-20] MEDS: DIVALPROEX 500 MG TABLET.DR PO SCH ×3 (09:32→20:35)
[2020-10-20] MEDS: HEPARIN SODIUM,PORCINE 5,000 UNIT/ML 1 ML VIAL SQ SCH ×2 (09:33→20:36)
[2020-10-20] MEDS: MECLIZINE 12.5 MG TAB PO SCH ×3 (09:33→22:26)
[2020-10-20 10:24] LABS: African American GFR (CKD) >90 (>60 ml/min/1.73 sqM); Anion Gap 7 mmol/L; Blood Urea Nitrogen 24 mg/dL (9-20); Carbon Dioxide 29 mmol/L (22-30); Chloride 97 mmol/L (98-107); Glucose 121 mg/dL (74-99); Non-African American GFR(CKD) >90 (>60 ml/min/1.73 sqM); Potassium 4.3 mmol/L (3.5-5.1); Sodium 133 mmol/L (137-145)
--- NOTE | 2020-10-20 10:55 | ECHOF ---
Referral Reason:Rule out heart disease MEASUREMENTS -------- HEIGHT: 167.6 cm WEIGHT: 59.0 kg BP: IVSd: 0.8 cm (0.6 - 1.1) LVIDd: 3.9 cm (3.9 - 5.3) LVPWd: 1.0 cm (0.6 - 1.1) IVSs: 1.8 cm LVIDs: 2.7 cm LVPWs: 1.6 cm Ao Diam: 3.5 cm (2.0 - 3.7) AV Cusp: 2.3 cm (1.5 - 2.6) LA Diam: 2.0 cm (2.7 - 3.8) MV EXCURSION: 13.883 mm (> 18.000) MV EF SLOPE: 88 mm/s (70 - 150) EPSS: 1.4 cm MV E Adrian: 0.55 m/s MV DecT: 319 ms MV A Adrian: 0.60 m/s MV E/A Ratio: 0.90 RAP: 5.00 mmHg RVSP: 21.57 mmHg FINDINGS -------- This was a technically adequate study. The left ventricular size is normal. Left ventricular wall thickness is normal. Overall left vent ricular systolic function is normal with, an EF between 55 - 60 %. The right ventricle is normal in size. The left atrial size is normal. The right atrial size is normal. The aortic valve is trileaflet and appears structurally normal. The mitral valve is normal. Mild mitral regurgitation is present. The tricuspid valve appears structurally normal. Trace tricuspid regurgitation present. Right mayo tricular systolic pressure is normal at < 35 mmHg. There is no pulmonic regurgitation present. The aortic root size is normal. IVC Not well visulized. There is no pericardial effusion. CONCLUSIONS -------- 1. The left ventricular size is normal. 2. Left ventricular wall thickness is normal. 3. Overall left ventricular systolic function is normal with, an EF between 55 - 60 %. 4. Mild mitral regurgitation is present. 5. Trace tricuspid regurgitation present. 6. There is no pericardial effusion. [employer] JOIST: Marni Lynn [facility]
[2020-10-20] MEDS ORDERED: TAMSULOSIN 0.4 MG CAP.ER.24H PO STA (11:16)
[2020-10-20] MEDS: PHENAZOPYRIDINE 100 MG TAB PO PRN (14:22)
[2020-10-20 14:35] VITALS: BMI 20.9
[2020-10-20] MEDS: OXYBUTYNIN XL 5 MG TAB.ER.24 PO SCH (17:14)
--- NOTE | 2020-10-20 20:01 | P.GSCN ---
History of Present Illness Consult date: 10/20/20 Reason for Consult: Urinary retention, bladder spasms History of present illness: This is a 55-year-old male admitted to the hospital with lower extremity weakness and recurrent falls. Urology is consulted for urinary retention. Patient had an elevated PVR at 475 mL, a Lauren catheter was subsequently placed. Patient has been complaining of penile pain and spasm secondary to his catheter. No previous known history of urinary retention. No bothersome urinary symptoms at baseline . The catheter is in place draining orange tinged urine. Denies any history of kidney stones or gross hematuria Past Medical History Past Medical History: CVA/TIA, Eye Disorder, Fibromyalgia, Hearing Disorder / Deafness, Hypertension, Seizure Disorder, Thyroid Disorder Additional Past Medical History / Comment(s): 02-14-15 presenting to er with rt upper/lower weakness, anxiety, tremors Other HX: NEURO FIBROMITOSIS DEVELOPED BRAIN TUMORS(HEMANGIOMAS)- WITH SURGERIES and pt has become legally blind and is completely deaf. 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 He takes his medication in applesauce or yogurt. He also has balance issues at times. He has been newly prescribed thyroid medication but has not started it yet. He has had hyponatremia which family believes physicians think it may be due to depakote. He had a CVA in August 2014. He has had abdominal pain in the past and overuse of stool softners. He has hemorrhoids. He has a seizure disorder with last seizure yrs ago-family believe seizure medication was working well. History of Any Multi-Drug Resistant Organisms: None Reported Additional Past Surgical History / Comment(s): 04/11/15 total colonoscopy with benign biopsy, ANEURYSM REPAIR(clip in place)-brain surgeries(CRANIOTOMY) due to neuro fibromitosis causing tumors,sx done at [facility]- dr aishwarya harrison. Old L cochlear implant. Pt has had peg and trach in the . Past Anesthesia/Blood Transfusion Reactions: No Reported Reaction Past Psychological History: Anxiety, Depression Past Alcohol Use History: None Reported Past Drug Use History: Marijuana - Past Family History Father Family Medical History: COPD Additional Family Medical History / Comment(s): Father was a smoker and had emphysema. Mother Additional Family Medical History / Comment(s): Mother of lung disease. Medications and Allergies Home Medications Medication Instructions Recorded Confirmed Type Metoprolol Tartrate [Lopressor] 50 mg PO BID 02/14/15 10/15/20 History ARIPiprazole [Abilify] 20 mg PO DAILY 11/25/15 10/15/20 History Sertraline [Zoloft] 100 mg PO BID 11/25/15 10/15/20 History Levothyroxine Sodium [Synthroid] 100 mcg PO DAILY 02/12/20 10/15/20 History amLODIPine [Norvasc] 5 mg PO DAILY 02/12/20 10/15/20 History Divalproex [Depakote] 500 mg PO TID 10/15/20 10/15/20 History LORazepam [Ativan] 0.25 mg PO HS 10/15/20 10/15/20 History LORazepam [Ativan] 0.5 mg PO BID@0800,1430 10/15/20 10/15/20 History Tamsulosin [Flomax] 0.4 mg PO DAILY #30 cap 10/20/20 Rx Allergies Allergy/AdvReac Type Severity Reaction Status Date / Time alprazolam [From Xanax] Allergy Unknown Verified 10/15/20 17:42 buspirone HCl [From BuSpar] Allergy Rash/Hives Verified 10/15/20 17:42 iodine Allergy Unknown Verified 10/15/20 17:42 Childhood haloperidol [From Haldol] AdvReac personality Verified 10/15/20 17:42 changes haloperidol lactate AdvReac personality Verified 10/15/20 17:42 [From Haldol] changes CT SCAN DYE Allergy Unknown Uncoded 10/15/20 17:42 Childhood Surgical - Exam Vital Signs Temp Pulse Resp BP Pulse Ox 98.3 F 65 16 102/67 100 10/15/20 13:21 10/15/20 13:21 10/15/20 13:21 10/15/20 13:21 10/15/20 13:21 - General no distress, no pain - Eyes no pale, no loss of movement - ENT normal nares, normal mucosa, poor longterm - Neck no masses, trachea midline - Respiratory normal expansion, normal respiratory effort - Abdomen Abdomen: soft, non tender - Genitourinary Lauren in place draining orange tinged urine normal penis with no external lesions - Psychiatric oriented to person, oriented to place Results - Labs 10/20/20 07:39 10/20/20 09:33 Abnormal Lab Results - Last 24 Hours (Table) 10/20/20 10/20/20 10/20/20 Range/Units 07:39 07:39 09:33 RBC 3.70 L (4.30-5.90) m/uL Hgb 12.3 L (13.0-17.5) gm/dL Hct 36.8 L (39.0-53.0) % Sodium 132 L 133 L (137-145) mmol/L Chloride 97 L 97 L (98-107) mmol/L Carbon Dioxide 32 H (22-30) mmol/L BUN 24 H 24 H (9-20) mg/dL Creatinine 0.65 L (0.66-1.25) mg/dL Glucose 121 H (74-99) mg/dL Diabetes panel 10/20/20 10/20/20 Range/Units 07:39 09:33 Sodium 132 L 133 L (137-145) mmol/L Potassium 4.4 4.3 (3.5-5.1) mmol/L Chloride 97 L 97 L (98-107) mmol/L Carbon Dioxide 32 H 29 (22-30) mmol/L BUN 24 H 24 H (9-20) mg/dL Creatinine 0.70 0.65 L (0.66-1.25) mg/dL Glucose 89 121 H (74-99) mg/dL Calcium 8.7 9.0 (8.4-10.2) mg/dL Calcium panel 10/20/20 10/20/20 Range/Units 07:39 09:33 Calcium 8.7 9.0 (8.4-10.2) mg/dL Pituitary panel 10/20/20 10/20/20 Range/Units 07:39 09:33 Sodium 132 L 133 L (137-145) mmol/L Potassium 4.4 4.3 (3.5-5.1) mmol/L Chloride 97 L 97 L (98-107) mmol/L Carbon Dioxide 32 H 29 (22-30) mmol/L BUN 24 H 24 H (9-20) mg/dL Creatinine 0.70 0.65 L (0.66-1.25) mg/dL Glucose 89 121 H (74-99) mg/dL Calcium 8.7 9.0 (8.4-10.2) mg/dL Adrenal panel 10/20/20 10/20/20 Range/Units 07:39 09:33 Sodium 132 L 133 L (137-145) mmol/L Potassium 4.4 4.3 (3.5-5.1) mmol/L Chloride 97 L 97 L (98-107) mmol/L Carbon Dioxide 32 H 29 (22-30) mmol/L BUN 24 H 24 H (9-20) mg/dL Creatinine 0.70 0.65 L (0.66-1.25) mg/dL Glucose 89 121 H (74-99) mg/dL Calcium 8.7 9.0 (8.4-10.2) mg/dL Assessment and Plan Assessment: 55-year-old male admitted to the hospital with lower extremity weakness and recurrent falls. Urology is consulted for urinary retention, Lauren catheter was placed this am for retention of 475 mL. No previous history of retention or bothersome urinary symptoms at baseline Plan: -Continue Flomax, will discharge patient home on Flomax -Continue Pyridium can also add Ditropan while inpatient for his bladder spasm -F/U in one week for trial of void, if patient is still in the hospital at that time then can do trial of void as an inpatient -
[2020-10-20 23:08] LABS: Appearance,Urine Clear (Clear); Bacteria,Urine Rare /hpf; Bilirubin,Urine Negative (Negative); Blood,Urine Trace (Negative); Color,Urine Yellow; Glucose,Urine (UA) Negative (Negative); Ketones,Urine Negative (Negative); Leukocyte Esterase,Urine Large (Negative); Mucus,Urine Rare /hpf; Nitrite,Urine Negative (Negative); Protein,Urine Negative (Negative); RBC,Urine 4 /hpf (0-5); Specific Gravity,Urine 1.009 (1.001-1.035); Urobilinogen,Urine <2.0 mg/dL (<2.0); WBC,Urine 45 /hpf (0-5)
[2020-10-21] MEDS: PANTOPRAZOLE 40 MG TABLET PO SCH (06:45)
[2020-10-21] MEDS: THIAMINE 100 MG TAB PO SCH ×2 (06:45→15:12)
[2020-10-21] MEDS: LEVOTHYROXINE 100 MCG TAB PO SCH (06:45)
[2020-10-21] MEDS: DIVALPROEX 500 MG TABLET.DR PO SCH ×3 (09:17→20:36)
[2020-10-21] MEDS: ASPIRIN 325 MG TAB PO SCH (09:17)
[2020-10-21] MEDS: FOLIC ACID 1 MG TAB PO SCH (09:17)
[2020-10-21] MEDS: TAMSULOSIN 0.4 MG CAP.ER.24H PO SCH (09:17)
[2020-10-21] MEDS: OXYBUTYNIN XL 5 MG TAB.ER.24 PO SCH (09:17)
[2020-10-21] MEDS: MULTIVITAMINS, THERA 1 EACH TAB PO SCH (09:17)
[2020-10-21] MEDS: METOPROLOL TARTRATE 50 MG TAB PO SCH ×2 (09:18→20:35)
[2020-10-21] MEDS: MECLIZINE 12.5 MG TAB PO SCH ×3 (09:18→20:36)
[2020-10-21] MEDS: HEPARIN SODIUM,PORCINE 5,000 UNIT/ML 1 ML VIAL SQ SCH ×2 (09:18→20:36)
[2020-10-21] MEDS: SERTRALINE 100 MG TAB PO SCH ×2 (09:18→20:36)
[2020-10-21] MEDS: LORazepam 0.5 MG TAB PO PRN ×3 (09:18→20:36)
--- NOTE | 2020-10-21 09:36 | P.PN ---
Subjective 55-year-old gentleman with history of stroke (2015), neuro-fibromatosis and hemangioma status post resection, brain aneurysm status post craniotomy, seizure, old right upper and lower extremity weakness that presents for recurrent falls and possible right leg weakness. According to the patient he has been having falls for the last 6-8 months and his right leg weakness has been same for at least 6 months and not worse. CT of the head is reported as no acute posterior matter changes. No acute hemorrhage. Stable appearance of the right frontal lobe cerebral mass and multiple calcified meningioma. CT cervical spine is a reported as degenerative changes throughout the cervical spine. No acute osseous abnormality. Note is made of calcification within the spinal cord in the posterior to the spinal cord in the upper cervical spine. These findings were present previously. In the body it is mentioned that the patient has disc space narrowing present diffusely. This greatest at C4/C5 and C6/C7 levels. Severe convertebral joint hypertrophy and forearm in all narrowing is present at C6-C7. Also it is mentioned that there is calcified left carotid artery aneurysm may be near the skull base to the level of C1. Lipid panel is triglyceride of 60, cholesterol 132, LDL 62 and HDL 58. TSH is 4.49. Valproic acid level is 64.9 which is therapeutic. 10/18/2020 Patient is seen and evaluated with sitter at bedside; discussed with nursing staff and no specific complaints Vital signs remained stable with a temperature 98.0, pulse 70, respiration 14 and blood pressure 125.58 with SpO2 of 95% on room air Labs are reviewed and stable Patient is pending transfer to skilled rehab once arrangements are made most lik [facility] on Tuesday10/19/2020 Patient is seen and evaluated with family members at bedside; patient is awake and alert and sitting up in bed; no specific complaints reported per nursing staff Patient is set up to be transferred to [facility] for skilled rehab with possible transition in next 24 hours 10/20/2020 patient have difficulty hearing with no hearing aid, Medication was done through writing Patient is complaining of from right upper chest wall pain and tenderness, pat ient states that it happened since fall . No shortness of breath or coughing. No leg pain. Right hip x-ray showing nondisplaced fracture. We will do serial troponins and EKG. Also check basic metabolic panel and d- dimer No other complaints. Patient agrees to go to rehab when he is medically ready 08/20/2021 Patient is awake and alert. His right upper chest pain is minimal today, workup was negative including negative d-dimer, normal echocardiogram with normal ejection fraction of 55-60 %, troponins are negative 2. Patient yesterday had urinary retention more than 475 mL, Lauren catheter inserted, urologist evaluated the patient and recommended voiding trial in one week. Urine analysis was repeated and showing infection, patient was started on ceftriaxone and pending urine culture. Patient will benefit from ECF upon discharge Patient already feels better and most likely his mild lower abdominal pain is related to his urinary retention Objective - Vital Signs Vital signs: Vital Signs Temp 97.6 F 10/21/20 02:03 Pulse 61 10/21/20 02:03 Resp 16 10/21/20 02:03 BP 114/54 10/21/20 02:03 Pulse Ox 98 10/21/20 02:03 Intake & Output 10/20/20 10/21/20 10/21/20 18:59 06:59 18:59 Intake Total 772 10 Output Total 450 1125 Balance 322 -1125 10 Weight 59 kg Intake: IV 10 Invasive Line 2 10 Oral 772 Output: Urine 450 1125 Uretheral (Lauren) 450 Other: Voiding Method Indwelling Catheter Indwelling Catheter # Voids 0 # Bowel Movements 0 1 - Exam GENERAL: The patient is alert and oriented x3, not in any acute distress. Well developed, well nourished. HEENT: Pupils are round and equally reacting to light. EOMI. No scleral icterus. No conjunctival pallor. Normocephalic, atraumatic. No pharyngeal erythema. No thyromegaly. CARDIOVASCULAR: S1 and S2 present. No murmurs, rubs, or gallops. -PULMONARY: Chest is clear to auscultation, no wheezing or crackles. Right upper chest wall tenderness ABDOMEN: Soft, nontender, nondistended, normoactive bowel sounds. No palpable organomegaly. MUSCULOSKELETAL: No joint swelling or deformity. EXTREMITIES: No cyanosis, clubbing, or pedal edema. NEUROLOGICAL: Gross neurological examination did not reveal any focal deficits. SKIN: No rashes. no petechiae. Right upper chest wall tenderness - Labs CBC & Chem 7: 10/20/20 07:39 10/20/20 09:33 Labs: Abnormal Lab Results - Last 24 Hours (Table) 10/20/20 10/20/20 Range/Units 09:33 22:32 Sodium 133 L (137-145) mmol/L Chloride 97 L (98-107) mmol/L BUN 24 H (9-20) mg/dL Creatinine 0.65 L (0.66-1.25) mg/dL Glucose 121 H (74-99) mg/dL Urine Blood Trace H (Negative) Ur Leukocyte Esterase Large H (Negative) Urine WBC 45 H (0-5) /hpf Urine Bacteria Rare H (None) /hpf Urine Mucus Rare H (None) /hpf Assessment and Plan Assessment: 1. Chronic Right-sided weakness; acute CVA ruled out - Patient have a detailed workup done which has been unremarkable so far; CT of the brain revealing stable appearance of right frontal lobe cerebral mass and multiple [place] V meningiomas. - Neurology on board and recommending to continue with daily aspirin 325 mg. No further neurological workup however they recommended patient to follow up with neurologist and the neurosurgeon as an outpatient - PT/OT on board with recommendations of skilled rehab 2. Recurrent falls/possible debility; patient evaluated by PT/OT; plans for transfer to skilled rehab when medically ready 3. Cervical spondylosis/ lumbar spinal stenosis; patient had a CT of lumbar spine completed which does show areas of mild spinal stenosis without myelopathy 4. Seizure disorder; Depakote 500 mg by mouth 3 times a day 5. Hypothyroidism; levothyroxin 100 MCG daily 6. Hypertension; stable on home dose of metoprolol and amlodipine 7., However patient Can get through reading 8. Right upper chest pain and tenderness. Workup negative. Most likely musculoskeletal secondary to fall. Already it is improving and its minimal no 9. urinary retention secondary to urinary tract infection. Continue with Lauren catheter. Continue with ceftriaxone. Follow-up urine culture. Follow-up with urologist as an outpatient DVT prophylaxis; SCDs/subcu heparin CODE STATUS; full code Prognosis is guarded
[2020-10-21] MEDS: ACETAMINOPHEN TAB 325 MG TAB PO PRN (11:54)
[2020-10-21] MEDS: PHENAZOPYRIDINE 100 MG TAB PO PRN (15:12)
[2020-10-22 02:59] VITALS: PULSE 68; RESP 18
[2020-10-22] MEDS: ACETAMINOPHEN TAB 325 MG TAB PO PRN (05:14)
[2020-10-22] MEDS: PANTOPRAZOLE 40 MG TABLET PO SCH (06:33)
[2020-10-22] MEDS: THIAMINE 100 MG TAB PO SCH (06:33)
[2020-10-22] MEDS: LEVOTHYROXINE 100 MCG TAB PO SCH (06:33)
[2020-10-22 08:16] VITALS: BP 127/74; TEMP 98
[2020-10-22] MEDS: FOLIC ACID 1 MG TAB PO SCH (08:17)
[2020-10-22] MEDS: METOPROLOL TARTRATE 50 MG TAB PO SCH (08:17)
[2020-10-22] MEDS: MECLIZINE 12.5 MG TAB PO SCH (08:17)
[2020-10-22] MEDS: SERTRALINE 100 MG TAB PO SCH (08:17)
[2020-10-22] MEDS: HEPARIN SODIUM,PORCINE 5,000 UNIT/ML 1 ML VIAL SQ SCH (08:17)
[2020-10-22] MEDS: OXYBUTYNIN XL 5 MG TAB.ER.24 PO SCH (08:17)
[2020-10-22] MEDS: MULTIVITAMINS, THERA 1 EACH TAB PO SCH (08:17)
[2020-10-22] MEDS: ASPIRIN 325 MG TAB PO SCH (08:17)
[2020-10-22] MEDS: TAMSULOSIN 0.4 MG CAP.ER.24H PO SCH (08:17)
[2020-10-22] MEDS: DIVALPROEX 500 MG TABLET.DR PO SCH (08:17)
[2020-10-22] MEDS: LORazepam 0.5 MG TAB PO PRN (08:38)
--- NOTE | 2020-10-22 08:54 | P.PN ---
Subjective 55-year-old gentleman with history of stroke (2015), neuro-fibromatosis and hemangioma status post resection, brain aneurysm status post craniotomy, seizure, old right upper and lower extremity weakness that presents for recurrent falls and possible right leg weakness. According to the patient he has been having falls for the last 6-8 months and his right leg weakness has been same for at least 6 months and not worse. CT of the head is reported as no acute posterior matter changes. No acute hemorrhage. Stable appearance of the right frontal lobe cerebral mass and multiple calcified meningioma. CT cervical spine is a reported as degenerative changes throughout the cervical spine. No acute osseous abnormality. Note is made of calcification within the spinal cord in the posterior to the spinal cord in the upper cervical spine. These findings were present previously. In the body it is mentioned that the patient has disc space narrowing present diffusely. This greatest at C4/C5 and C6/C7 levels. Severe convertebral joint hypertrophy and forearm in all narrowing is present at C6-C7. Also it is mentioned that there is calcified left carotid artery aneurysm may be near the skull base to the level of C1. Lipid panel is triglyceride of 60, cholesterol 132, LDL 62 and HDL 58. TSH is 4.49. Valproic acid level is 64.9 which is therapeutic. 10/18/2020 Patient is seen and evaluated with sitter at bedside; discussed with nursing staff and no specific complaints Vital signs remained stable with a temperature 98.0, pulse 70, respiration 14 and blood pressure 125.58 with SpO2 of 95% on room air Labs are reviewed and stable Patient is pending transfer to skilled rehab once arrangements are made most lik [facility] on Tuesday10/19/2020 Patient is seen and evaluated with family members at bedside; patient is awake and alert and sitting up in bed; no specific complaints reported per nursing staff Patient is set up to be transferred to [facility] for skilled rehab with possible transition in next 24 hours 10/20/2020 patient have difficulty hearing with no hearing aid, Medication was done through writing Patient is complaining of from right upper chest wall pain and tenderness, pat ient states that it happened since fall . No shortness of breath or coughing. No leg pain. Right hip x-ray showing nondisplaced fracture. We will do serial troponins and EKG. Also check basic metabolic panel and d- dimer No other complaints. Patient agrees to go to rehab when he is medically ready 08/20/2021 Patient is awake and alert. His right upper chest pain is minimal today, workup was negative including negative d-dimer, normal echocardiogram with normal ejection fraction of 55-60 %, troponins are negative 2. Patient yesterday had urinary retention more than 475 mL, Lauren catheter inserted, urologist evaluated the patient and recommended voiding trial in one week. Urine analysis was repeated and showing infection, patient was started on ceftriaxone and pending urine culture. Patient will benefit from ECF upon discharge Patient already feels better and most likely his mild lower abdominal pain is related to his urinary retention 10/22/2020 Patient is clinically stable, his right upper chest secondary to fall his improvement. Workup was negative so far. His abdominal and suprapubic pain is mild and minimal and is improving after placing Lauren catheter. Patient was started on Flomax. Currently he remains on Rocephin patient can be discharged to subacute rehab once recovered results of urine culture To make sure there is no resistant bacteria Objective - Vital Signs Vital signs: Vital Signs Temp 98 F 10/22/20 08:00 Pulse 68 10/22/20 08:00 Resp 18 10/22/20 08:00 BP 127/74 10/22/20 08:00 Pulse Ox 98 10/22/20 08:00 Intake & Output 10/21/20 10/22/20 10/22/20 18:59 06:59 18:59 Intake Total 1170 780 Output Total 750 1350 Balance 420 -570 Intake: IV 10 Invasive Line 2 10 Oral 1160 780 Output: Urine 750 1350 Other: Voiding Method Indwelling Catheter Indwelling Catheter Indwelling Catheter # Voids 1 # Bowel Movements 2 3 - Exam GENERAL: The patient is alert and oriented x3, not in any acute distress. Well developed, well nourished. HEENT: Pupils are round and equally reacting to light. EOMI. No scleral icterus. No conjunctival pallor. Normocephalic, atraumatic. No pharyngeal erythema. No thyromegaly. CARDIOVASCULAR: S1 and S2 present. No murmurs, rubs, or gallops. -PULMONARY: Chest is clear to auscultation, no wheezing or crackles. Right upper chest wall tenderness ABDOMEN: Soft, nontender, nondistended, normoactive bowel sounds. No palpable organomegaly. MUSCULOSKELETAL: No joint swelling or deformity. EXTREMITIES: No cyanosis, clubbing, or pedal edema. NEUROLOGICAL: Gross neurological examination did not reveal any focal deficits. SKIN: No rashes. no petechiae. Right upper chest wall tenderness - Labs CBC & Chem 7: 10/20/20 07:39 10/20/20 09:33 Labs: Microbiology - Last 24 Hours (Table) 10/21/20 07:06 Urine Culture - Preliminary Urine,Catheterized Assessment and Plan Assessment: 1. Chronic Right-sided weakness; acute CVA ruled out - Patient have a detailed workup done which has been unremarkable so far; CT of the brain revealing stable appearance of right frontal lobe cerebral mass and multiple [place] V meningiomas. - Neurology on board and recommending to continue with daily aspirin 325 mg. No further neurological workup however they recommended patient to follow up with neurologist and the neurosurgeon as an outpatient - PT/OT on board with recommendations of skilled rehab 2. Recurrent falls/possible debility; patient evaluated by PT/OT; plans for transfer to skilled rehab when medically ready 3. Cervical spondylosis/ lumbar spinal stenosis; patient had a CT of lumbar spine completed which does show areas of mild spinal stenosis without myelopathy 4. Seizure disorder; Depakote 500 mg by mouth 3 times a day 5. Hypothyroidism; levothyroxin 100 MCG daily 6. Hypertension; stable on home dose of metoprolol and amlodipine 7., However patient Can get through reading 8. Right upper chest pain and tenderness. Workup negative. Most likely musculoskeletal secondary to fall. Already it is improving and its minimal no 9. urinary retention secondary to urinary tract infection. Continue with Lauren catheter. Continue with ceftriaxone. Follow-up urine culture. Follow-up with urologist as an outpatient DVT prophylaxis; SCDs/subcu heparin CODE STATUS; full code Prognosis is guarded
--- NOTE | 2020-10-22 13:17 | P.DS ---
Providers Date of admission: 10/16/20 10:15 Attending physician: Fadia Arzola Consults: 10/15/20 17:05 Consult Physician Routine Consulting Provider: Carter Hoang Consult Reason/Comments: cvi Do you want consulting provider notified?: Yes 10/20/20 13:33 Consult Physician Routine Consulting Provider: Scott Tidwell Consult Reason/Comments: urinary pain Do you want consulting provider notified?: Yes Primary care physician: Stated None Hospital Course: Diagnoses: 1. urinary retention secondary to urinary tract infection. Continue with Lauren catheter. Continue with cceftin. Follow-up with urologist as an outpatient 2. Chronic Right-sided weakness; acute CVA ruled out - Patient have a detailed workup done which has been unremarkable so far; CT of the brain revealing stable appearance of right frontal lobe cerebral mass and multiple [place] V meningiomas. - Neurology on board and recommending to continue with daily aspirin 325 mg. No further neurological workup however they recommended patient to follow up with neurologist and the neurosurgeon as an outpatient - PT/OT on board with recommendations of skilled rehab 3. Recurrent falls/possible debility; patient evaluated by PT/OT; plans for transfer to skilled rehab when medically ready 4. Cervical spondylosis/ lumbar spinal stenosis; patient had a CT of lumbar spine completed which does show areas of mild spinal stenosis without myelopathy 4. Right upper chest pain and tenderness. Workup negative. Most likely musculoskeletal secondary to fall. Already it is improving and its minimal now 6. Hypertension; stable on home dose of metoprolol and amlodipine 7., However patient Can get through reading 8. History of Seizure disorder; Depakote 500 mg by mouth 3 times a day 9. Hypothyroidism; levothyroxin 100 MCG daily Hospital course: 55-year-old gentleman with history of stroke (2014), neuro-fibromatosis and hemangioma status post resection, brain aneurysm status post craniotomy, seizure, old right upper and lower extremity weakness that presents for recurrent falls and possible right leg weakness. According to the patient he has been having falls for the last 6-8 months and his right leg weakness has bee n same for at least 6 months and not worse. CT of the head is reported as no acute posterior matter changes. No acute hemorrhage. Stable appearance of the right frontal lobe cerebral mass and multiple calcified meningioma. CT cervical spine is a reported as degenerative changes throughout the cervical spine. No acute osseous abnormality. Note is made of calcification within the spinal cord in the posterior to the spinal cord in the upper cervical spine. These findings were present previously. In the body it is mentioned that the patient has disc space narrowing present diffusely. This greatest at C4/C5 and C6/C7 levels. Severe convertebral joint hypertrophy and forearm in all narrowing is present at C6-C7. Also it is mentioned that there is calcified left carotid artery aneurysm may be near the skull base to the level of C1. Lipid panel is triglyceride of 60, cholesterol 132, LDL 62 and HDL 58. TSH is 4.49. Valproic acid level is 64.9 which is therapeutic. Taoism evaluated the patient and cleared for discharge with recommendation for follow-up as an outpatient with the neurologist and the neurosurgeon Patient was woken up from his prostate anterior bladder scan showed urine retention more than 475 mL, Lauren catheter was inserted and Flomax was started. Neurologist evaluated the patient and recommended a trial of voiding in one week and follow-up with Dr. chavez in 1-2 weeks post discharge. Urinalysis was suspicious for infection. Urine culture showing no growth. Patient was treated with ceftriaxone which is switched to Ceftin upon discharge He has right upper chest pain and tenderness after a fall which is improving. Workup including stroke troponins, EKG were unremarkable to explain his pain. D-dimer was negative. Echocardiogram shows left ventricular function with ejection fraction 55-60% Gentleman clinically stable and was cleared for discharge by neurologist and urologist Problems and management plan were discussed with the patient and he verbalized understanding and acceptance Patient was found stable and can be discharged home however he needs follow-up as an outpatient. Patient was instructed to follow up with PCP within one week and patient agrees Also recommend patient follow up with from urology in 1-2 weeks and to follow up with the neurologist and the neurosurgeon as an outpatient in 2 weeks, several neurologist were suggested to the discharge summary including Dr. Juan Garcia, Dr. Juan Holland an Dr. Mahajan Physical exam Gen: patient is a AAOx3, no distress CVS: S1-S2, RRR, no murmur Lungs: B/L CTA, no wheezing Abdomen: soft, no distention, no tenderness, positive bowel sounds. Lauren catheter is in a Place Extremity: no leg edema or induration Time spent more than 35 minutes Plan - Discharge Summary Discharge Rx Participant: No New Discharge Prescriptions: New Tamsulosin [Flomax] 0.4 mg PO DAILY #30 cap Oxybutynin Xl [Ditropan XL] 5 mg PO DAILY tab.er.24 Folic Acid 1 mg PO DAILY@1200 tab Heparin Sodium,Porcine [Heparin Sodium] 5,000 unit SQ Q12HR vial Multivitamins, Thera [Multivitamin (formulary)] 1 each PO DAILY@1200 tab Phenazopyridine [Pyridium] 100 mg PO TID PRN tab PRN Reason: Urinary Pain Acetaminophen Tab [Tylenol] 650 mg PO Q6H PRN tab PRN Reason: Fever And/ Or Pain Thiamine [Vitamin B-1] 100 mg PO BID-W/MEALS tab Cefuroxime Axetil [Ceftin] 500 mg PO BID 3 Days #6 tab Continue Metoprolol Tartrate [Lopressor] 50 mg PO BID Sertraline [Zoloft] 100 mg PO BID ARIPiprazole [Abilify] 20 mg PO DAILY Levothyroxine Sodium [Synthroid] 100 mcg PO DAILY LORazepam [Ativan] 0.5 mg PO BID@0800,1430 Divalproex [Depakote] 500 mg PO TID LORazepam [Ativan] 0.25 mg PO HS #2 tab Discontinued amLODIPine [Norvasc] 5 mg PO DAILY Discharge Medication List Metoprolol Tartrate [Lopressor] 50 mg PO BID 02/14/15 [History] ARIPiprazole [Abilify] 20 mg PO DAILY 11/25/15 [History] Sertraline [Zoloft] 100 mg PO BID 11/25/15 [History] Levothyroxine Sodium [Synthroid] 100 mcg PO DAILY 02/12/20 [History] Divalproex [Depakote] 500 mg PO TID 10/15/20 [History] LORazepam [Ativan] 0.5 mg PO BID@0800,1430 10/15/20 [History] Tamsulosin [Flomax] 0.4 mg PO DAILY #30 cap 10/20/20 [Rx] Acetaminophen Tab [Tylenol] 650 mg PO Q6H PRN tab 10/22/20 [Rx] Cefuroxime Axetil [Ceftin] 500 mg PO BID 3 Days #6 tab 10/22/20 [Rx] Folic Acid 1 mg PO DAILY@1200 tab 10/22/20 [Rx] Heparin Sodium,Porcine [Heparin Sodium] 5,000 unit SQ Q12HR vial 10/22/20 [Rx] LORazepam [Ativan] 0.25 mg PO HS #2 tab 10/22/20 [Rx] Multivitamins, Thera [Multivitamin (formulary)] 1 each PO DAILY@1200 tab 10/22/20 [Rx] Oxybutynin Xl [Ditropan XL] 5 mg PO DAILY tab.er.24 10/22/20 [Rx] Phenazopyridine [Pyridium] 100 mg PO TID PRN tab 10/22/20 [Rx] Thiamine [Vitamin B-1] 100 mg PO BID-W/MEALS tab 10/22/20 [Rx] Follow up Appointment(s)/Referral(s): Damon Martinez MD [REFERRING] - 2 Weeks (neurologist) Puneet Chavez MD [STAFF PHYSICIAN] - 1 Week Matheus Mahajan MD [Medical Doctor] - 1 Week (neurologist) None,Stated [Primary Care Provider] - 1-2 days Carina Martinez MD [REFERRING] - 2 Weeks (neurologist) Patient Instructions/Handouts: Urinary Retention in Men (ED), Urinary Tract Infection in Men (ED), Dysuria (ED), Fall Prevention (ED) Discharge Disposition: TRANSFER TO SNF/ECF
== END 2020-10-22 14:33 | DRG 690 ==
LOC: EC 13:20 → 3SCARD 19:36 → OBSVTOIN 10-16 10:15
PROVIDERS: ADMIT Hospitalist; ATTEND Hospitalist
DX: N39.0 Urinary tract infection, site not specified (principal); E87.1 Hypo-osmolality and hyponatremia; Q85.00 Neurofibromatosis, unspecified; R29.6 Repeated falls; R33.8 Other retention of urine; M79.7 Fibromyalgia; M48.061 Spinal stenosis, lumbar region without neurogenic claudication; M47.816 Spondylosis without myelopathy or radiculopathy, lumbar region; D18.00 Hemangioma unspecified site; D32.9 Benign neoplasm of meninges, unspecified; D53.9 Nutritional anemia, unspecified; D63.8 Anemia in other chronic diseases classified elsewhere; E03.9 Hypothyroidism, unspecified; F42.9 Obsessive-compulsive disorder, unspecified; G40.909 Epilepsy, unspecified, not intractable, without status epilepticus; H54.8 Legal blindness, as defined in USA; H91.93 Unspecified hearing loss, bilateral; I10 Essential (primary) hypertension; I72.0 Aneurysm of carotid artery; M47.812 Spondylosis without myelopathy or radiculopathy, cervical region; N32.89 Other specified disorders of bladder; Z20.822 Contact with and (suspected) exposure to COVID-19; S80.211A Abrasion, right knee, initial encounter; W19.XXXA Unspecified fall, initial encounter; Z91.81 History of falling; Z79.890 Hormone replacement therapy; Z79.899 Other long term (current) drug therapy; Z82.5 Family history of asthma and other chronic lower respiratory diseases; Z86.73 Personal history of transient ischemic attack (TIA), and cerebral infarction without residual deficits; Z87.891 Personal history of nicotine dependence; R07.89 Other chest pain
CPT/HCPCS: 36415; 70450; 71046; 71250; 72125; 72131; 74177; 76705; 80048; 80053; 80061; 80164; 81001; 81003; 82550; 83605; 84443; 84484; 85025; 85379; 85610; 85730; 87086; 87635; 93005; 93306; 96374; 96375; 99285

== ENCOUNTER 2020-11-12 15:06 | Emergency (ER) | payer MEDICARE, OTHER ==
[2020-11-12] MEDS ORDERED: ACETAMINOPHEN TAB 500 MG TAB PO STA (15:40)
[2020-11-12] MEDS ORDERED: IBUPROFEN 600 MG TAB PO STA (15:40)
[2020-11-12 16:26] LABS: HCT 43.2 % (39.0-53.0); HGB 14.7 gm/dL (13.0-17.5); MCH 33.7 pg (25.0-35.0); MCV 98.9 fL (80.0-100.0); Mean Platelet Volume 7.4; Platelet Count 104 k/uL (150-450); RBC 4.36 m/uL (4.30-5.90); RDW 13.8 % (11.5-15.5); WBC 5.5 k/uL (3.8-10.6)
[2020-11-12] MEDS: SODIUM CHLORIDE 0.9% 500 ML 500 ML IV SCH ×3 (16:27→18:30)
[2020-11-12 16:32] LABS: Nucleated Red Blood Cells 0 /100 WBC (0-0)
[2020-11-12 16:33] LABS: Band Neutrophils % 4 %; Lymphocytes # (M) 0.83 k/uL (1.0-4.8); Neutrophils % (M) 72 %; Partial Thromboplastin Time 23.3 sec (22.0-30.0); Prothrombin Time 10.6 sec (9.0-12.0); Total Cells Counted 100
[2020-11-12 16:38] LABS: ALT 25 U/L (4-49); AST 45 U/L (17-59); African American GFR (CKD) >90 (>60 ml/min/1.73 sqM); Albumin 4.3 g/dL (3.5-5.0); Alkaline Phosphatase 85 U/L (38-126); Anion Gap 9 mmol/L; Blood Urea Nitrogen 20 mg/dL (9-20); Calcium 8.5 mg/dL (8.4-10.2); Carbon Dioxide 29 mmol/L (22-30); Chloride 89 mmol/L (98-107); Glucose 99 mg/dL (74-99); Non-African American GFR(CKD) >90 (>60 ml/min/1.73 sqM); Potassium 4.3 mmol/L (3.5-5.1); Sodium 127 mmol/L (137-145); Total Bilirubin 0.5 mg/dL (0.2-1.3); Total Protein 7.2 g/dL (6.3-8.2)
--- NOTE | 2020-11-12 16:43 | XR ---
EXAMINATION TYPE: XR chest 1V portable DATE OF EXAM: 11/12/2020 COMPARISON: Chest x-ray and CT chest October 15, 2020 HISTORY: Fever and shortness of breath. TECHNIQUE: Single frontal view of the chest is obtained. FINDINGS: There is mild chronic parenchymal change bilaterally without suspicious focal air space op acity, pleural effusion, or pneumothorax seen. The cardiac silhouette size is stable and upper limit s of normal. The osseous structures are intact. IMPRESSION: Chronic parenchymal changes without new suspicious acute pulmonary
[2020-11-12 18:13] LABS: Appearance,Urine Clear (Clear); Bilirubin,Urine Negative (Negative); Blood,Urine Negative (Negative); Color,Urine Yellow; Glucose,Urine (UA) Negative (Negative); Ketones,Urine Negative (Negative); Leukocyte Esterase,Urine Negative (Negative); Nitrite,Urine Negative (Negative); PH, Urine 6.5 (5.0-8.0); Protein,Urine Negative (Negative); Specific Gravity,Urine 1.017 (1.001-1.035); Urobilinogen,Urine <2.0 mg/dL (<2.0)
--- NOTE | 2020-11-12 18:19 | ED ---
General Adult HPI - General Chief complaint: Fever Stated complaint: Weakness Time Seen by Provider: 11/12/20 15:11 Source: patient, EMS, RN notes reviewed Mode of arrival: EMS Limitations: language barrier, physical limitation - History of Present Illness Initial comments: 55-year-old male patient presents to the emergency department today for evaluation of weakness and fever. Patient states that he has a persistent cough. Denies sputum production. Denies any shortness of breath or chest pain. Denies any nausea or vomiting. Denies diarrhea. Denies any rash. Recently had a urinary tract infection. Patient denies any recent rash, chest pain, abdominal pain, constipation, back pain, numbness, tingling, dizziness, weakness, hematuria, dysuria, urinary urgency, urinary frequency, headache, visual changes, or any other complaints. - Related Data Home Medications Medication Instructions Recorded Confirmed Metoprolol Tartrate [Lopressor] 50 mg PO BID 02/14/15 10/15/20 ARIPiprazole [Abilify] 20 mg PO DAILY 11/25/15 10/15/20 Sertraline [Zoloft] 100 mg PO BID 11/25/15 10/15/20 Levothyroxine Sodium [Synthroid] 100 mcg PO DAILY 02/12/20 10/15/20 Divalproex [Depakote] 500 mg PO TID 10/15/20 10/15/20 LORazepam [Ativan] 0.5 mg PO BID@0800,1430 10/15/20 10/15/20 Previous Rx's Medication Instructions Recorded Tamsulosin [Flomax] 0.4 mg PO DAILY #30 cap 10/20/20 Acetaminophen Tab [Tylenol] 650 mg PO Q6H PRN tab 10/22/20 Cefuroxime Axetil [Ceftin] 500 mg PO BID 3 Days #6 tab 10/22/20 Folic Acid 1 mg PO DAILY@1200 tab 10/22/20 Heparin Sodium,Porcine [Heparin 5,000 unit SQ Q12HR vial 10/22/20 Sodium] LORazepam [Ativan] 0.25 mg PO HS #2 tab 10/22/20 Multivitamins, Thera [Multivitamin 1 each PO DAILY@1200 tab 10/22/20 (formulary)] Oxybutynin Xl [Ditropan XL] 5 mg PO DAILY tab.er.24 10/22/20 Phenazopyridine [Pyridium] 100 mg PO TID PRN tab 10/22/20 Thiamine [Vitamin B-1] 100 mg PO BID-W/MEALS tab 10/22/20 Allergies Allergy/AdvReac Type Severity Reaction Status Date / Time alprazolam [From Xanax] Allergy Unknown Verified 11/12/20 15:27 buspirone HCl [From BuSpar] Allergy Rash/Hives Verified 11/12/20 15:27 iodine Allergy Unknown Verified 11/12/20 15:27 Childhood peanut Allergy Unknown Verified 11/12/20 15:27 haloperidol [From Haldol] AdvReac personality Verified 11/12/20 15:27 changes haloperidol lactate AdvReac personality Verified 11/12/20 15:27 [From Haldol] changes CT SCAN DYE Allergy Unknown Uncoded 11/12/20 15:27 Childhood Review of Systems ROS Statement: Those systems with pertinent positive or pertinent negative responses have been documented in the HPI. ROS Other: All systems not noted in ROS Statement are negative. 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 He takes his medication in applesauce or yogurt. He also has balance issues at times. He has been newly prescribed thyroid medication but has not started it yet. He has had hyponatremia which family believes physicians think it may be due to depakote. He had a CVA in August 2014. He has had abdominal pain in the past and overuse of stool softners. He has hemorrhoids. He has a seizure disorder with last seizure yrs ago-family believe seizure medication was working well. History of Any Multi-Drug Resistant Organisms: None Reported Additional Past Surgical History / Comment(s): 04/11/15 total colonoscopy with benign biopsy, ANEURYSM REPAIR(clip in place)-brain surgeries(CRANIOTOMY) due to neuro fibromitosis causing tumors,sx done at [facility]- dr aishwarya harrison. Old L cochlear implant. Pt has had peg and trach in the . Past Anesthesia/Blood Transfusion Reactions: No Reported Reaction Past Psychological History: Anxiety, Depression Smoking Status: Never smoker Past Alcohol Use History: None Reported Past Drug Use History: None Reported - Past Family History Father Family Medical History: COPD Additional Family Medical History / Comment(s): Father was a smoker and had emphysema. Mother Additional Family Medical History / Comment(s): Mother of lung disease. General Exam Limitations: language barrier, physical limitation General appearance: alert, in no apparent distress, other (This is well developed, well nourished adult male patient in no acute distress. Vital signs upon presentation were temp 102.8, pulse 78, resp 18 BP 133/72, pulse ox 98%. ) Eye exam: Present: normal appearance, PERRL, EOMI. Absent: scleral icterus, conjunctival injection, periorbital swelling ENT exam: Present: normal exam, normal oropharynx, mucous membranes moist Respiratory exam: Present: normal lung sounds bilaterally. Absent: respiratory distress, wheezes, rales, rhonchi, stridor Cardiovascular Exam: Present: regular rate, normal rhythm, normal heart sounds. Absent: systolic murmur, diastolic murmur, rubs, gallop, clicks GI/Abdominal exam: Present: soft, normal bowel sounds. Absent: distended, tende rness, guarding, rebound, rigid Neurological exam: Present: alert, oriented X3, CN II-XII intact Psychiatric exam: Present: normal affect, normal mood Skin exam: Present: warm, dry, intact, normal color. Absent: rash Course Vital Signs 11/12/20 11/12/20 11/12/20 15:21 15:30 15:35 Temperature 102.8 F H 102.9 F H Pulse Rate 78 81 Respiratory 18 18 18 Rate Blood Pressure 133/72 132/66 O2 Sat by Pulse 98 98 Oximetry 11/12/20 11/12/20 11/12/20 15:45 16:30 17:00 Temperature Pulse Rate 79 81 61 Respiratory 18 18 16 Rate Blood Pressure 126/73 132/81 111/57 O2 Sat by Pulse 99 99 95 Oximetry 11/12/20 11/12/20 18:00 19:00 Temperature 100.8 F H Pulse Rate 68 64 Respiratory 16 16 Rate Blood Pressure 104/83 106/47 O2 Sat by Pulse 95 94 L Oximetry EKG Findings - EKG Comments: EKG Findings:: EKG obtained at 1825 shows normal sinus rhythm with a ventricular rate is 67, NC interval 122, QR protestant 80, QT 398, QTC 420. No evidence of ST elevation or depression. Medical Decision Making - Medical Decision Making 55-year-old male patient presents to the emergency department today for evaluation of fever and weakness. Patient reports cough but denies any other symptoms. No vomiting, no diarrhea. He has no wounds. Physical examination is unremarkable. No rash. He has no invasive lines. Labs reviewed and did reveal normal white blood cell count of 5.5, sodium 127 which is chronic for the patient. Urinalysis is negative. Rotavirus is negative. Influenza is negat ines. I did discuss findings results with the patient. We'll discharge him back to his [facility] facility pending blood culture results. Patient verbalizes understanding and agrees with this plan. Case discussed with my attending Dr. Hdez. - Lab Data Result diagrams: 11/12/20 15:47 11/12/20 15:47 Lab Results 11/12/20 11/12/20 11/12/20 Range/Units 15:47 15:47 15:47 WBC 5.5 (3.8-10.6) k/uL RBC 4.36 (4.30-5.90) m/uL Hgb 14.7 (13.0-17.5) gm/dL Hct 43.2 (39.0-53.0) % MCV 98.9 (80.0-100.0) fL MCH 33.7 (25.0-35.0) pg MCHC 34.0 (31.0-37.0) g/dL RDW 13.8 (11.5-15.5) % Plt Count 104 L (150-450) k/uL MPV 7.4 Neutrophils % (Manual) 72 % Band Neuts % (Manual) 4 % Lymphocytes % (Manual) 15 % Monocytes % (Manual) 9 % Neutrophils # (Manual) 4.10 (1.3-7.7) k/uL Lymphocytes # (Manual) 0.83 L (1.0-4.8) k/uL Monocytes # (Manual) 0.50 (0-1.0) k/uL Nucleated RBCs 0 (0-0) /100 WBC Manual Slide Review Performed RBC Morphology Normal PT 10.6 (9.0-12.0) sec INR 1.0 (<1.2) APTT 23.3 (22.0-30.0) sec Sodium (137-145) mmol/L Potassium (3.5-5.1) mmol/L Chloride (98-107) mmol/L Carbon Dioxide (22-30) mmol/L Anion Gap mmol/L BUN (9-20) mg/dL Creatinine (0.66-1.25) mg/dL Est GFR (CKD-EPI)AfAm (>60 ml/min/1.73 sqM) Est GFR (CKD-EPI)NonAf (>60 ml/min/1.73 sqM) Glucose (74-99) mg/dL Plasma Lactic Acid Jaime (0.7-2.0) mmol/L Calcium (8.4-10.2) mg/dL Total Bilirubin (0.2-1.3) mg/dL AST (17-59) U/L ALT (4-49) U/L Alkaline Phosphatase (38-126) U/L Total Protein (6.3-8.2) g/dL Albumin (3.5-5.0) g/dL Urine Color Yellow Urine Appearance Clear (Clear) Urine pH 6.5 (5.0-8.0) Ur Specific [place] 1.017 (1.001-1.035) Urine Protein Negative (Negative) Urine Glucose (UA) Negative (Negative) Urine Ketones Negative (Negative) Urine Blood Negative (Negative) Urine Nitrite Negative (Negative) Urine Bilirubin Negative (Negative) Urine Urobilinogen <2.0 (<2.0) mg/dL Ur Leukocyte Esterase Negative (Negative) Coronavirus (PCR) (Not Detectd) Influenza Type A RNA (Not Detectd) Influenza Type B (PCR) (Not Detectd) 11/12/20 11/12/20 11/12/20 Range/Units 15:47 15:47 15:47 WBC (3.8-10.6) k/uL RBC (4.30-5.90) m/uL Hgb (13.0-17.5) gm/dL Hct (39.0-53.0) % MCV (80.0-100.0) fL MCH (25.0-35.0) pg MCHC (31.0-37.0) g/dL RDW (11.5-15.5) % Plt Count (150-450) k/uL MPV Neutrophils % (Manual) % Band Neuts % (Manual) % Lymphocytes % (Manual) % Monocytes % (Manual) % Neutrophils # (Manual) (1.3-7.7) k/uL Lymphocytes # (Manual) (1.0-4.8) k/uL Monocytes # (Manual) (0-1.0) k/uL Nucleated RBCs (0-0) /100 WBC Manual Slide Review RBC Morphology PT (9.0-12.0) sec INR (<1.2) APTT (22.0-30.0) sec Sodium 127 L (137-145) mmol/L Potassium 4.3 (3.5-5.1) mmol/L Chloride 89 L (98-107) mmol/L Carbon Dioxide 29 (22-30) mmol/L Anion Gap 9 mmol/L BUN 20 (9-20) mg/dL Creatinine 0.75 (0.66-1.25) mg/dL Est GFR (CKD-EPI)AfAm >90 (>60 ml/min/1.73 sqM) Est GFR (CKD-EPI)NonAf >90 (>60 ml/min/1.73 sqM) Glucose 99 (74-99) mg/dL Plasma Lactic Acid Jaime 1.4 (0.7-2.0) mmol/L Calcium 8.5 (8.4-10.2) mg/dL Total Bilirubin 0.5 (0.2-1.3) mg/dL AST 45 (17-59) U/L ALT 25 (4-49) U/L Alkaline Phosphatase 85 (38-126) U/L Total Protein 7.2 (6.3-8.2) g/dL Albumin 4.3 (3.5-5.0) g/dL Urine Color Urine Appearance (Clear) Urine pH (5.0-8.0) Ur Specific [place] (1.001-1.035) Urine Protein (Negative) Urine Glucose (UA) (Negative) Urine Ketones (Negative) Urine Blood (Negative) Urine Nitrite (Negative) Urine Bilirubin (Negative) Urine Urobilinogen (<2.0) mg/dL Ur Leukocyte Esterase (Negative) Coronavirus (PCR) Not Detected (Not Detectd) Influenza Type A RNA (Not Detectd) Influenza Type B (PCR) (Not Detectd) 11/12/20 Range/Units 19:09 WBC (3.8-10.6) k/uL RBC (4.30-5.90) m/uL Hgb (13.0-17.5) gm/dL Hct (39.0-53.0) % MCV (80.0-100.0) fL MCH (25.0-35.0) pg MCHC (31.0-37.0) g/dL RDW (11.5-15.5) % Plt Count (150-450) k/uL MPV Neutrophils % (Manual) % Band Neuts % (Manual) % Lymphocytes % (Manual) % Monocytes % (Manual) % Neutrophils # (Manual) (1.3-7.7) k/uL Lymphocytes # (Manual) (1.0-4.8) k/uL Monocytes # (Manual) (0-1.0) k/uL Nucleated RBCs (0-0) /100 WBC Manual Slide Review RBC Morphology PT (9.0-12.0) sec INR (<1.2) APTT (22.0-30.0) sec Sodium (137-145) mmol/L Potassium (3.5-5.1) mmol/L Chloride (98-107) mmol/L Carbon Dioxide (22-30) mmol/L Anion Gap mmol/L BUN (9-20) mg/dL Creatinine (0.66-1.25) mg/dL Est GFR (CKD-EPI)AfAm (>60 ml/min/1.73 sqM) Est GFR (CKD-EPI)NonAf (>60 ml/min/1.73 sqM) Glucose (74-99) mg/dL Plasma Lactic Acid Jaime (0.7-2.0) mmol/L Calcium (8.4-10.2) mg/dL Total Bilirubin (0.2-1.3) mg/dL AST (17-59) U/L ALT (4-49) U/L Alkaline Phosphatase (38-126) U/L Total Protein (6.3-8.2) g/dL Albumin (3.5-5.0) g/dL Urine Color Urine Appearance (Clear) Urine pH (5.0-8.0) Ur Specific [place] (1.001-1.035) Urine Protein (Negative) Urine Glucose (UA) (Negative) Urine Ketones (Negative) Urine Blood (Negative) Urine Nitrite (Negative) Urine Bilirubin (Negative) Urine Urobilinogen (<2.0) mg/dL Ur Leukocyte Esterase (Negative) Coronavirus (PCR) (Not Detectd) Influenza Type A RNA Not Detected (Not Detectd) Influenza Type B (PCR) Not Detected (Not Detectd) - Radiology Data Radiology results: report reviewed, image reviewed One view x-ray of the chest is obtained. Report was reviewed in its entirety. Impression by Dr. Kearns shows chronic parenchymal changes on is suspicious acute pulmonary abnormality. Disposition Clinical Impression: Fever Disposition: HOME SELF-CARE Condition: Good Instructions (If sedation given, give patient instructions): Fever in Adults (E D) Additional Instructions: Follow-up with the primary care physician for recheck as soon as possible. Await blood culture results. Return to the emergency department for any new, worsening, or concerning symptoms. Is patient prescribed a controlled substance at d/c from ED?: No Referrals: Bryant Bhagat MD [Primary Care Provider] - 1-2 days Time of Disposition: 19:47
[2020-11-12 18:54] VITALS: TEMP 100.8
[2020-11-12 20:47] VITALS: BP 103/52; PULSE 62; RESP 18
== END 2020-11-12 21:35 | disposition home or self-care (01) ==
LOC: EC 15:06
DX: R50.9 Fever, unspecified (principal); I10 Essential (primary) hypertension; F32.9 Major depressive disorder, single episode, unspecified; F41.9 Anxiety disorder, unspecified; Z86.73 Personal history of transient ischemic attack (TIA), and cerebral infarction without residual deficits
CPT/HCPCS: 36415; 71045; 80053; 81003; 83605; 85025; 85610; 85730; 87040; 87502; 87635; 93005; 99285

== ENCOUNTER 2020-11-15 11:43 | Inpatient (IN) | payer MEDICARE, OTHER ==
--- NOTE | 2020-11-15 11:52 | ED ---
General Adult HPI - General Stated complaint: Fever Time Seen by Provider: 11/15/20 11:43 Source: patient, EMS, RN notes reviewed, old records reviewed Mode of arrival: EMS Limitations: no limitations - History of Present Illness Initial comments: This is a 55-year-old male with a history of multiple medical problems including lung standing seizure disorder who is brought in from a group home today for complaints of fever of 99.5 axillary isn't twitching of left-sided his face and left sided. Patient's heart. He does have blindness. Education somewhat difficult. No nausea no vomiting no trauma reported no other complaints or modifying factors reported at this time. - Related Data Home Medications Medication Instructions Recorded Confirmed Metoprolol Tartrate [Lopressor] 50 mg PO BID 02/14/15 10/15/20 ARIPiprazole [Abilify] 20 mg PO DAILY 11/25/15 10/15/20 Sertraline [Zoloft] 100 mg PO BID 11/25/15 10/15/20 Levothyroxine Sodium [Synthroid] 100 mcg PO DAILY 02/12/20 10/15/20 Divalproex [Depakote] 500 mg PO TID 10/15/20 10/15/20 LORazepam [Ativan] 0.5 mg PO BID@0800,1430 10/15/20 10/15/20 Previous Rx's Medication Instructions Recorded Tamsulosin [Flomax] 0.4 mg PO DAILY #30 cap 10/20/20 Acetaminophen Tab [Tylenol] 650 mg PO Q6H PRN tab 10/22/20 Cefuroxime Axetil [Ceftin] 500 mg PO BID 3 Days #6 tab 10/22/20 Folic Acid 1 mg PO DAILY@1200 tab 10/22/20 Heparin Sodium,Porcine [Heparin 5,000 unit SQ Q12HR vial 10/22/20 Sodium] LORazepam [Ativan] 0.25 mg PO HS #2 tab 10/22/20 Multivitamins, Thera [Multivitamin 1 each PO DAILY@1200 tab 10/22/20 (formulary)] Oxybutynin Xl [Ditropan XL] 5 mg PO DAILY tab.er.24 10/22/20 Phenazopyridine [Pyridium] 100 mg PO TID PRN tab 10/22/20 Thiamine [Vitamin B-1] 100 mg PO BID-W/MEALS tab 10/22/20 Allergies Allergy/AdvReac Type Severity Reaction Status Date / Time alprazolam [From Xanax] Allergy Unknown Verified 11/12/20 15:27 buspirone HCl [From BuSpar] Allergy Rash/Hives Verified 11/12/20 15:27 iodine Allergy Unknown Verified 11/12/20 15:27 Childhood peanut Allergy Unknown Verified 11/12/20 15:27 haloperidol [From Haldol] AdvReac personality Verified 11/12/20 15:27 changes haloperidol lactate AdvReac personality Verified 11/12/20 15:27 [From Haldol] changes CT SCAN DYE Allergy Unknown Uncoded 11/12/20 15:27 Childhood Review of Systems ROS Statement: Those systems with pertinent positive or pertinent negative responses have been documented in the HPI. ROS Other: All systems not noted in ROS Statement are negative. Limitations: ROS unobtainable due to patients medical condition Past Medical History Past Medical History: CVA/TIA, Eye Disorder, Fibromyalgia, Hearing Disorder / Deafness, Hypertension, Seizure Disorder, Thyroid Disorder Additional Past Medical History / Comment(s): 02-14-15 presenting to er with rt upper/lower weakness, anxiety, tremors Other HX: NEURO FIBROMITOSIS DEVELOPED BRAIN TUMORS(HEMANGIOMAS)- WITH SURGERIES and pt has become legally blind and is completely deaf. 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 He takes his medication in applesauce or yogurt. He also has balance issues at times. He has been newly prescribed thyroid medication but has not started it yet. He has had hyponatremia which family believes physicians think it may be due to depakote. He had a CVA in August 2014. He has had abdominal pain in the past and overuse of stool softners. He has hemorrhoids. He has a seizure disorder with last seizure yrs ago-family believe seizure medication was working well. History of Any Multi-Drug Resistant Organisms: None Reported Additional Past Surgical History / Comment(s): 04/11/15 total colonoscopy with benign biopsy, ANEURYSM REPAIR(clip in place)-brain surgeries(CRANIOTOMY) due to neuro fibromitosis causing tumors,[facility]. Old L cochlear implant. Pt has had peg and trach in the . Past Anesthesia/Blood Transfusion Reactions: No Reported Reaction Past Psychological History: Anxiety, Depression Smoking Status: Never smoker Past Alcohol Use History: None Reported Past Drug Use History: None Reported - Past Family History Father Family Medical History: COPD Additional Family Medical History / Comment(s): Father was a smoker and had emphysema. Mother Additional Family Medical History / Comment(s): Mother of lung disease. General Exam - General Exam Comments Initial Comments: This is a well-developed sec appearing male who was awake and alert Limitations: no limitations General appearance: alert, in no apparent distress Head exam: Present: atraumatic, normocephalic, normal inspection Eye exam: Present: normal appearance, PERRL, EOMI. Absent: scleral icterus, conjunctival injection, periorbital swelling ENT exam: Present: mucous membranes dry Neck exam: Present: normal inspection, full ROM, other (Surgery or bruits). Absent: tenderness, meningismus, lymphadenopathy Respiratory exam: Present: normal lung sounds bilaterally. Absent: respiratory distress, wheezes, rales, rhonchi, stridor Cardiovascular Exam: Present: regular rate, normal rhythm, normal heart sounds. Absent: systolic murmur, diastolic murmur, rubs, gallop, clicks GI/Abdominal exam: Present: soft, normal bowel sounds. Absent: distended, tenderness, guarding, rebound, rigid Extremities exam: Present: normal inspection, full ROM, normal capillary refill. Absent: tenderness, pedal edema, joint swelling, calf tenderness Back exam: Present: normal inspection Neurological exam: Present: alert Psychiatric exam: Present: normal affect, normal mood Skin exam: Present: warm, dry, intact, normal color. Absent: rash Course Vital Signs 11/15/20 11/15/20 11:45 13:00 Temperature 103.1 F H Pulse Rate 81 80 Respiratory 20 24 Rate Blood Pressure 126/79 126/66 O2 Sat by Pulse 95 99 Oximetry - Reevaluation(s) Reevaluation #1: 11/15/20 14:40 Computed tomography scan of the brain done at the behest of Dr. morris the reveals no acute changes from previous studies. EKG Findings - EKG Results: EKG: interpreted by CELENA (Sinus rhythm of 86 NM interval 120 QRS duration 72 QT since QTC 334/423 possible left atrial enlargement) Medical Decision Making - Medical Decision Making I did discuss findings with the admitting physician Dr. Swartz patient will be admitted based on the pneumonia protocol. - Lab Data Result diagrams: 11/15/20 12:35 11/15/20 12:35 Lab Results 11/15/20 11/15/20 11/15/20 Range/Units 12:35 12:35 12:35 WBC 4.6 (3.8-10.6) k/uL RBC 3.97 L (4.30-5.90) m/uL Hgb 13.4 (13.0-17.5) gm/dL Hct 39.8 (39.0-53.0) % MCV 100.1 H (80.0-100.0) fL MCH 33.6 (25.0-35.0) pg MCHC 33.6 (31.0-37.0) g/dL RDW 13.7 (11.5-15.5) % Plt Count 104 L (150-450) k/uL MPV 7.6 Neutrophils % 81 % Lymphocytes % 10 % Monocytes % 7 % Eosinophils % 0 % Basophils % 1 % Neutrophils # 3.7 (1.3-7.7) k/uL Lymphocytes # 0.5 L (1.0-4.8) k/uL Monocytes # 0.3 (0-1.0) k/uL Eosinophils # 0.0 (0-0.7) k/uL Basophils # 0.0 (0-0.2) k/uL PT 10.5 (9.0-12.0) sec INR 1.0 (<1.2) APTT 30.3 H (22.0-30.0) sec D-Dimer 1.15 H (<0.60) mg/L FEU Sodium 132 L (137-145) mmol/L Potassium 4.4 (3.5-5.1) mmol/L Chloride 96 L (98-107) mmol/L Carbon Dioxide 32 H (22-30) mmol/L Anion Gap 4 mmol/L BUN 24 H (9-20) mg/dL Creatinine 0.73 (0.66-1.25) mg/dL Est GFR (CKD-EPI)AfAm >90 (>60 ml/min/1.73 sqM) Est GFR (CKD-EPI)NonAf >90 (>60 ml/min/1.73 sqM) Glucose 106 H (74-99) mg/dL Plasma Lactic Acid Jaime (0.7-2.0) mmol/L Calcium 8.3 L (8.4-10.2) mg/dL Magnesium 1.8 (1.6-2.3) mg/dL Total Bilirubin 0.4 (0.2-1.3) mg/dL AST 46 (17-59) U/L ALT 26 (4-49) U/L Alkaline Phosphatase 70 (38-126) U/L Lactate Dehydrogenase 547 (313-618) U/L Creatine Kinase 100 (55-170) U/L C-Reactive Protein 224.5 H (<10.0) mg/L NT-Pro-B Natriuret Pep pg/mL Total Protein 6.0 L (6.3-8.2) g/dL Albumin 3.4 L (3.5-5.0) g/dL Coronavirus (PCR) (Not Detectd) Influenza Type A RNA (Not Detectd) Influenza Type B (PCR) (Not Detectd) 11/15/20 11/15/20 11/15/20 Range/Units 12:35 12:35 12:40 WBC (3.8-10.6) k/uL RBC (4.30-5.90) m/uL Hgb (13.0-17.5) gm/dL Hct (39.0-53.0) % MCV (80.0-100.0) fL MCH (25.0-35.0) pg MCHC (31.0-37.0) g/dL RDW (11.5-15.5) % Plt Count (150-450) k/uL MPV Neutrophils % % Lymphocytes % % Monocytes % % Eosinophils % % Basophils % % Neutrophils # (1.3-7.7) k/uL Lymphocytes # (1.0-4.8) k/uL Monocytes # (0-1.0) k/uL Eosinophils # (0-0.7) k/uL Basophils # (0-0.2) k/uL PT (9.0-12.0) sec INR (<1.2) APTT (22.0-30.0) sec D-Dimer (<0.60) mg/L FEU Sodium (137-145) mmol/L Potassium (3.5-5.1) mmol/L Chloride (98-107) mmol/L Carbon Dioxide (22-30) mmol/L Anion Gap mmol/L BUN (9-20) mg/dL Creatinine (0.66-1.25) mg/dL Est GFR (CKD-EPI)AfAm (>60 ml/min/1.73 sqM) Est GFR (CKD-EPI)NonAf (>60 ml/min/1.73 sqM) Glucose (74-99) mg/dL Plasma Lactic Acid Jaime 1.2 (0.7-2.0) mmol/L Calcium (8.4-10.2) mg/dL Magnesium (1.6-2.3) mg/dL Total Bilirubin (0.2-1.3) mg/dL AST (17-59) U/L ALT (4-49) U/L Alkaline Phosphatase (38-126) U/L Lactate Dehydrogenase (313-618) U/L Creatine Kinase (55-170) U/L C-Reactive Protein (<10.0) mg/L NT-Pro-B Natriuret Pep 1110 pg/mL Total Protein (6.3-8.2) g/dL Albumin (3.5-5.0) g/dL Coronavirus (PCR) (Not Detectd) Influenza Type A RNA Not Detected (Not Detectd) Influenza Type B (PCR) Not Detected (Not Detectd) 11/15/20 Range/Units 12:40 WBC (3.8-10.6) k/uL RBC (4.30-5.90) m/uL Hgb (13.0-17.5) gm/dL Hct (39.0-53.0) % MCV (80.0-100.0) fL MCH (25.0-35.0) pg MCHC (31.0-37.0) g/dL RDW (11.5-15.5) % Plt Count (150-450) k/uL MPV Neutrophils % % Lymphocytes % % Monocytes % % Eosinophils % % Basophils % % Neutrophils # (1.3-7.7) k/uL Lymphocytes # (1.0-4.8) k/uL Monocytes # (0-1.0) k/uL Eosinophils # (0-0.7) k/uL Basophils # (0-0.2) k/uL PT (9.0-12.0) sec INR (<1.2) APTT (22.0-30.0) sec D-Dimer (<0.60) mg/L FEU Sodium (137-145) mmol/L Potassium (3.5-5.1) mmol/L Chloride (98-107) mmol/L Carbon Dioxide (22-30) mmol/L Anion Gap mmol/L BUN (9-20) mg/dL Creatinine (0.66-1.25) mg/dL Est GFR (CKD-EPI)AfAm (>60 ml/min/1.73 sqM) Est GFR (CKD-EPI)NonAf (>60 ml/min/1.73 sqM) Glucose (74-99) mg/dL Plasma Lactic Acid Jaime (0.7-2.0) mmol/L Calcium (8.4-10.2) mg/dL Magnesium (1.6-2.3) mg/dL Total Bilirubin (0.2-1.3) mg/dL AST (17-59) U/L ALT (4-49) U/L Alkaline Phosphatase (38-126) U/L Lactate Dehydrogenase (313-618) U/L Creatine Kinase (55-170) U/L C-Reactive Protein (<10.0) mg/L NT-Pro-B Natriuret Pep pg/mL Total Protein (6.3-8.2) g/dL Albumin (3.5-5.0) g/dL Coronavirus (PCR) Not Detected (Not Detectd) Influenza Type A RNA (Not Detectd) Influenza Type B (PCR) (Not Detectd) - Radiology Data Radiology results: report reviewed (Imaging reviewed evidence a left lower lobe pneumonia), image reviewed Disposition Clinical Impression: Pneumonia, Febrile illness, acute, Dehydration, Failure to thrive in adult Disposition: ADMITTED IP TO THIS HOSP Condition: Fair Referrals: Bryant Bhagat MD [Primary Care Provider] - 1-2 days
--- NOTE | 2020-11-15 12:47 | XR ---
EXAMINATION TYPE: XR chest 2V DATE OF EXAM: 11/15/2020 COMPARISON: 11/12/2020 INDICATION: Fever cough difficulty breathing TECHNIQUE: Frontal and lateral views of the chest are obtained. FINDINGS: The heart size is normal. The pulmonary vasculature is normal. Mild left lower lobe infiltrate is present. Correlate for atelectasis or pneumonia. Consider atypical pneumonia.. A minimal posterior costophrenic angle effusion is present. IMPRESSION: 1. Left lower lobe infiltrate. Correlate for pneumonia. 2. Small posterior pleural effusion
[2020-11-15 13:05] LABS: Basophils % (A) 1 %; Eosinophils % (A) 0 %; HCT 39.8 % (39.0-53.0); HGB 13.4 gm/dL (13.0-17.5); Lymphocytes # (A) 0.5 k/uL (1.0-4.8); Lymphocytes % (A) 10 %; MCH 33.6 pg (25.0-35.0); MCHC 33.6 g/dL (31.0-37.0); MCV 100.1 fL (80.0-100.0); Mean Platelet Volume 7.6; Monocytes # (A) 0.3 k/uL (0-1.0); Monocytes % (A) 7 %; Neutrophils # (A) 3.7 k/uL (1.3-7.7); Neutrophils % (A) 81 %; Platelet Count 104 k/uL (150-450); RBC 3.97 m/uL (4.30-5.90); RDW 13.7 % (11.5-15.5); WBC 4.6 k/uL (3.8-10.6)
[2020-11-15 13:07] LABS: ALT 26 U/L (4-49); AST 46 U/L (17-59); African American GFR (CKD) >90 (>60 ml/min/1.73 sqM); Albumin 3.4 g/dL (3.5-5.0); Alkaline Phosphatase 70 U/L (38-126); Anion Gap 4 mmol/L; Blood Urea Nitrogen 24 mg/dL (9-20); Calcium 8.3 mg/dL (8.4-10.2); Carbon Dioxide 32 mmol/L (22-30); Chloride 96 mmol/L (98-107); Creatine Kinase 100 U/L (55-170); Glucose 106 mg/dL (74-99); LDH 547 U/L (313-618); Magnesium 1.8 mg/dL (1.6-2.3); Non-African American GFR(CKD) >90 (>60 ml/min/1.73 sqM); Potassium 4.4 mmol/L (3.5-5.1); Sodium 132 mmol/L (137-145); Total Bilirubin 0.4 mg/dL (0.2-1.3)
[2020-11-15 13:19] LABS: Partial Thromboplastin Time 30.3 sec (22.0-30.0); Prothrombin Time 10.5 sec (9.0-12.0)
[2020-11-15 13:23] LABS: D-Dimer 1.15 mg/L FEU (<0.60)
[2020-11-15] MEDS ORDERED: ACETAMINOPHEN TAB 325 MG TAB PO STA (13:26)
[2020-11-15 13:28] LABS: C Reactive Protein 224.5 mg/L (<10.0)
[2020-11-15] MEDS ORDERED: cefTRIAXone IN SWFI 1,000 MG/10 ML SYRINGE IVP STA (14:23)
--- NOTE | 2020-11-15 14:35 | CT ---
EXAMINATION TYPE: CT brain wo con DATE OF EXAM: 11/15/2020 COMPARISON: 10/15/2020 HISTORY: Altered mental status CT DLP: mGycm Automated exposure control for dose reduction was used. There is irregular dense calcification of the cerebral falx. There is frontal craniotomy defect. Ther e is large right occipital craniotomy defect. There is large surgical defect involving the left masto id sinus. There is extensive dense calcification within the third ventricle and lateral ventricles. T here is no midline shift. There is 1.8 cm calcified mass on the anterior cerebral falx. There is 2.5 cm calcified mass at the left frontal convexity which appears extra-axial. There is poorly marginated mass adjacent to the right side of the cerebral falx that measures approximately 5.5 x 2.5 cm unchan ged and could be additional meningioma. There is 1.5 cm extra-axial calcified mass right posterior fr ontal lobe. There are other extra-axial calcified masses. There is an electrode implanted in the ayla on of the fourth ventricle. There is no evidence of intracranial hemorrhage. There is no hydrocephalu s. IMPRESSION: Multiple calcified masses consistent with meningioma. Large right posterior frontal lobe mass adjacen t to the cerebral falx also consistent with meningioma and unchanged. No acute intracranial abnormali ty.
[2020-11-15] MEDS ORDERED: PNEUMONIA PROTOCOL UTILIZED 1 EACH MISC PO PRN (14:42)
[2020-11-15] MEDS ORDERED: AZITHROMYCIN 500 MG in SODIUM CHLORIDE 0.9% 250 ML IVPB STA (14:42)
[2020-11-15] MEDS: SODIUM CHLORIDE 0.9% 1,000 ML IV SCH ×2 (15:04→23:02)
[2020-11-15 15:23] LABS: Appearance,Urine Clear (Clear); Bilirubin,Urine Negative (Negative); Blood,Urine Negative (Negative); Color,Urine Yellow; Glucose,Urine (UA) Negative (Negative); Ketones,Urine Trace (Negative); Leukocyte Esterase,Urine Negative (Negative); Mucus,Urine Occasional /hpf; Nitrite,Urine Negative (Negative); PH, Urine 6.5 (5.0-8.0); Protein,Urine 1+ (Negative); RBC,Urine 1 /hpf (0-5); Specific Gravity,Urine 1.023 (1.001-1.035); Urobilinogen,Urine <2.0 mg/dL (<2.0); WBC,Urine 3 /hpf (0-5)
[2020-11-15] MEDS: DIVALPROEX 500 MG TABLET.DR PO SCH ×2 (17:10→20:12)
[2020-11-15] MEDS: THIAMINE 100 MG TAB PO SCH (17:39)
[2020-11-15] MEDS: SERTRALINE 100 MG TAB PO SCH (20:12)
[2020-11-15] MEDS: LORazepam 0.5 MG TAB PO SCH (20:13)
[2020-11-15] MEDS: METOPROLOL TARTRATE 50 MG TAB PO SCH (20:13)
[2020-11-16] MEDS: ACETAMINOPHEN TAB 325 MG TAB PO PRN ×3 (02:59→22:14)
[2020-11-16] MEDS: LEVOTHYROXINE 100 MCG TAB PO SCH (05:36)
[2020-11-16 07:03] LABS: Glucose,Whole Blood 104 mg/dL (75-99)
[2020-11-16] MEDS: SODIUM CHLORIDE 0.9% 1,000 ML IV SCH ×2 (08:22→22:20)
[2020-11-16] MEDS: TAMSULOSIN 0.4 MG CAP.ER.24H PO SCH (08:25)
[2020-11-16] MEDS: SERTRALINE 100 MG TAB PO SCH ×2 (08:25→22:15)
[2020-11-16] MEDS: OXYBUTYNIN XL 5 MG TAB.ER.24 PO SCH (08:26)
[2020-11-16] MEDS: FOLIC ACID 1 MG TAB PO SCH ×2 (08:26→12:27)
[2020-11-16] MEDS: DIVALPROEX 500 MG TABLET.DR PO SCH ×3 (08:26→22:15)
[2020-11-16] MEDS: AZITHROMYCIN 500 MG TAB PO SCH (08:26)
[2020-11-16] MEDS: THIAMINE 100 MG TAB PO SCH ×2 (08:27→16:57)
[2020-11-16] MEDS: LORazepam 0.5 MG TAB PO SCH ×3 (08:27→22:15)
[2020-11-16] MEDS: METOPROLOL TARTRATE 50 MG TAB PO SCH ×2 (08:27→22:15)
[2020-11-16] MEDS ORDERED: NON FORMULARY DRUG (Lactose-Reduced Food [Ensure Plus] 237 ML Liquid) PO SCH (09:00)
--- NOTE | 2020-11-16 09:49 | XR ---
EXAMINATION TYPE: XR chest 1V DATE OF EXAM: 11/16/2020 COMPARISON: 11/15/2020 INDICATION: Pneumonia TECHNIQUE: Single frontal view of the chest is obtained. FINDINGS: The heart size is normal. The pulmonary vasculature is normal. Mild infiltrates at the left lower lobe. Findings are worsened over the interval. Small left pleural effusion should be considered. Minimal subsegmental infiltrate may be at the right base. Correlate fo r atelectasis or atypical pneumonia. IMPRESSION: 1. Worsening left lower lobe and developing minimal subsegmental infiltrates at the right base. 2. Small left pleural effusion
[2020-11-16] MEDS: MULTIVITAMINS, THERA 1 EACH TAB PO SCH (12:27)
--- NOTE | 2020-11-16 17:50 | P.HPIM ---
History of Present Illness H&P Date: 11/16/20 Chief Complaint: Fever History of presenting complaint: This is a pleasant 55-year-old patient who is a resident of [facility] in the [facility]. Patient is hard of hearing and blind per history. Patient at the [facility] was noted to have elevated temperature last week. Has a history of seizure. Patient was noted to have a low pulse ox on room air but on oxygen. Pulse ox improved. EKG showed sinus rhythm. On arrival to the ER patient noted to have a temperature 103.1. Hx x-ray showed a infiltrate. Started on ceftriaxone for pneumonia. Patient is a difficult historian but able to answer questions. Pretty tired. Review of systems: Difficult to obtain because patient is hard of hearing and blind Past medical history to include: Stroke, fibromyalgia, hard of hearing, legally blind, hypertension, seizure disorder, hypothyroid, neurofibromatosis W brain tumors with surgeries and patient become legally blind and completely deaf. 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 He takes his medications in applesauce or yogurt. His last seizure was many years ago. 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 Has a old left cochlear implant. Patient does use a tablet with an application for conversation Social history: Resident of [facility] of the [facility]. Does use a tablet physical application for conversation. Mika Shieldsxiomara's patient's legal guardian patient smoked from 1982 through 2013. No alcohol. Family history: Patient cannot tell Physical examination: VITAL SIGNS: 13.1, 81, 20, 126/79, 95% on room air GENERAL: BMI 20.7, 10 pills, laying in bed, tired awake. EYES: Pupils equal. Conjunctiva normal. HEENT: External appearance of nose and ears normal, oral cavity dry mucous membranes. NECK: JVD unable to assess; masses not palpable. HEART: First and second heart sounds are normal; no edema. LUNGS: Respiratory rate increased, decreased breath sounds. ABDOMEN: Soft, nontender, liver spleen not palpable, no masses palpable. PSYCH: Able to communicatel. NEUROLOGICAL: [Cranial nerves grossly intact; no facial asymmetry, weakness of the limbs LYMPHATICS: No lymph nodes palpable in the axilla and neck. INVESTIGATIONS, reviewed in the clinical context: WBC 4.6 hemoglobin 13.4 platelets 104 d-dimer 1.15 sodium 132 potassium 4.4 bun 24 creatinine 0.73 pro-calcitonin 0.35 CRP 224 d-dimer 1.15 Coronavirus/PCR, influenza type A, influenza type B-old not detected Chest x-ray film personally reviewed by me-left lower lobe infiltrate EKG tracing personally reviewed by me-normal sinus rhythm Computed tomography scan of the brain modified calcified masses consistent with meningioma. Assessment and plan: Left lower lobe pneumonia suspect gram-negative organism. Patient started on IV ceftriaxone. -Legal blindness from prior surgery -Very hard of hearing -Hypothyroid continue with Synthroid -Seizure disorder, continue with Depakote -Essential hypertension, continue Lopressor -Neurofibromatosis with history of multiple complaints surgeries -Anxiety depression otherwise specified -OCD -Legal guardian is Mika Rivas and -Bladder incontinence on Ditropan XL and Flomax Care was discussed with the patient. Continue with IV antibiotics and IV fluids. Patient does eat with assistance. Past Medical History Past Medical History: CVA/TIA, Eye Disorder, Fibromyalgia, Hearing Disorder / Deafness, Hypertension, Seizure Disorder, Thyroid Disorder Additional Past Medical History / Comment(s): NEURO FIBROMITOSIS DEVELOPED BRAIN TUMORS(HEMANGIOMAS)- WITH SURGERIES and pt has become legally blind and is completely deaf. 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 He takes his medication in applesauce or yogurt. He has had hyponatremia which family believes physicians think it may be due to depakote. He had a CVA in August 2014. He has had abdominal pain in the past and overuse of stool softners. He has hemorrhoids. He has a seizure disorder with last seizure yrs ago-family believe seizure medication was working well. History of Any Multi-Drug Resistant Organisms: None Reported Additional Past Surgical History / Comment(s): 04/11/15 total colonoscopy with benign biopsy, ANEURYSM REPAIR(clip in place)-brain surgeries(CRANIOTOMY) due to neuro fibromitosis causing tumors,sx done at [facility]- dr aishwarya harrison. Old L cochlear implant. Pt has had peg and trach in the . Past Anesthesia/Blood Transfusion Reactions: No Reported Reaction Past Psychological History: Anxiety, Depression Additional Psychological History / Comment(s): Pt has OCD. Felipe Brown is his legal guardian. 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 Pt will tend to flair with his OCD if orthodox is discussed in front of him. He has a tablet with an application to allow him to converse. WENT [place] [facility] [place] [facility] [place] AFTER D/C FROM [facility]- HAS ONLY BEEN HOME SHORT WHILE. Resident of [facility] Smoking Status: Never smoker Past Alcohol Use History: None Reported Additional Past Alcohol Use History / Comment(s): Pt started smoking in 1981 and quit in 2013. Past Drug Use History: None Reported - Past Family History Father Family Medical History: COPD Additional Family Medical History / Comment(s): Father was a smoker and had emphysema. Mother Additional Family Medical History / Comment(s): Mother of lung disease. Medications and Allergies Home Medications Medication Instructions Recorded Confirmed Type ARIPiprazole [Abilify] 20 mg PO DAILY@0900 11/25/15 11/15/20 History LORazepam [Ativan] 0.25 mg PO HS@2100 10/15/20 11/15/20 History Acetaminophen Tab [Tylenol] 650 mg PO Q4H PRN 11/15/20 11/15/20 History Azithromycin [Zithromax] 250 mg PO DAILY 11/15/20 11/15/20 History Divalproex Sodium [Depakote] 500 mg PO TID@0900,1300,209911/15/20 11/15/20 History Folic Acid 1 mg PO DAILY@0900 11/15/20 11/15/20 History Heparin Sodium,Porcine [Heparin 5,000 unit SQ Q12HR@0900,2100 11/15/20 11/15/20 History Sodium] Ibuprofen [Motrin] 600 mg PO Q6H PRN 11/15/20 11/15/20 History LORazepam [Ativan] 0.5 mg PO BID@0900,1430 11/15/20 11/15/20 History Lactose-Reduced Food [Ensure Plus] 240 ml PO TID@0900,1300,2100 11/15/20 11/15/20 History Levothyroxine Sodium [Synthroid] 100 mcg PO HS@2100 11/15/20 11/15/20 History Metoprolol Tartrate [Lopressor] 50 mg PO BID@0900,2100 11/15/20 11/15/20 History Multivitamins, Thera [Multivitamin 1 tab PO DAILY@0900 11/15/20 11/15/20 History (formulary)] Oxybutynin Xl [Ditropan XL] 5 mg PO DAILY@0900 11/15/20 11/15/20 History Phenazopyridine [Pyridium] 100 mg PO Q8H PRN 11/15/20 11/15/20 History Sertraline HCl [Zoloft] 100 mg PO BID@0900,2100 11/15/20 11/15/20 History Tamsulosin [Flomax] 0.4 mg PO DAILY@0900 11/15/20 11/15/20 History Thiamine [Vitamin B-1] 100 mg PO BID@0900,2100 11/15/20 11/15/20 History Allergies Allergy/AdvReac Type Severity Reaction Status Date / Time alprazolam [From Xanax] Allergy Unknown Verified 11/12/20 15:27 buspirone HCl [From BuSpar] Allergy Rash/Hives Verified 11/12/20 15:27 [place] And Derivatives Allergy Unknown Verified 11/15/20 18:07 [[place]] iodine Allergy Unknown Verified 11/12/20 15:27 Childhood mite-Dermatophagoides Allergy Unknown Verified 11/15/20 18:07 farinae, vega morphine Allergy Unknown Verified 11/15/20 18:07 peanut Allergy Unknown Verified 11/12/20 15:27 tomato Allergy Unknown Verified 11/15/20 18:07 haloperidol [From Haldol] AdvReac personality Verified 11/12/20 15:27 changes haloperidol lactate AdvReac personality Verified 11/12/20 15:27 [From Haldol] changes CT SCAN DYE Allergy Unknown Uncoded 11/12/20 15:27 Childhood Physical Exam Vitals: Vital Signs Temp Pulse Pulse Resp BP BP Pulse Ox 11/16/20 10:00 98.2 F 67 20 99/61 97 11/16/20 07:51 96 11/16/20 05:53 98.9 F 62 20 107/58 97 11/16/20 05:47 99.3 F 11/16/20 02:22 102.7 F H 79 20 138/67 93 L 11/15/20 22:00 99.7 F H 74 126/61 98 11/15/20 19:56 76 101/58 11/15/20 18:05 99.0 F 70 18 102/62 97 03/20/21 17:42 100 F H 71 18 93/50 97 11/15/20 17:06 100 F H 71 18 93/50 97 11/15/20 15:19 103 F H 11/15/20 13:00 80 24 126/66 99 11/15/20 11:45 103.1 F H 81 20 126/79 95 Intake and Output 11/15/20 11/16/20 11/16/20 22:59 06:59 14:59 Other: Voiding Method Diaper Incontinent # Voids 1 Weight 63.503 kg Results CBC & Chem 7: 11/15/20 12:35 11/15/20 12:35 Labs: Abnormal Lab Results - Last 24 Hours (Table) 11/15/20 11/15/20 11/15/20 Range/Units 12:35 12:35 12:35 RBC 3.97 L (4.30-5.90) m/uL MCV 100.1 H (80.0-100.0) fL Plt Count 104 L (150-450) k/uL Lymphocytes # 0.5 L (1.0-4.8) k/uL APTT 30.3 H (22.0-30.0) sec D-Dimer 1.15 H (<0.60) mg/L FEU Sodium 132 L (137-145) mmol/L Chloride 96 L (98-107) mmol/L Carbon Dioxide 32 H (22-30) mmol/L BUN 24 H (9-20) mg/dL Glucose 106 H (74-99) mg/dL POC Glucose (mg/dL) (75-99) mg/dL Calcium 8.3 L (8.4-10.2) mg/dL C-Reactive Protein 224.5 H (<10.0) mg/L Total Protein 6.0 L (6.3-8.2) g/dL Albumin 3.4 L (3.5-5.0) g/dL Procalcitonin (0.02-0.09) ng/mL Urine Protein (Negative) Urine Ketones (Negative) Urine Mucus (None) /hpf 11/15/20 11/15/20 11/16/20 Range/Units 12:44 15:00 06:51 RBC (4.30-5.90) m/uL MCV (80.0-100.0) fL Plt Count (150-450) k/uL Lymphocytes # (1.0-4.8) k/uL APTT (22.0-30.0) sec D-Dimer (<0.60) mg/L FEU Sodium (137-145) mmol/L Chloride (98-107) mmol/L Carbon Dioxide (22-30) mmol/L BUN (9-20) mg/dL Glucose (74-99) mg/dL POC Glucose (mg/dL) 104 H (75-99) mg/dL Calcium (8.4-10.2) mg/dL C-Reactive Protein (<10.0) mg/L Total Protein (6.3-8.2) g/dL Albumin (3.5-5.0) g/dL Procalcitonin 0.35 H (0.02-0.09) ng/mL Urine Protein 1+ H (Negative) Urine Ketones Trace H (Negative) Urine Mucus Occasional H (None) /hpf Thrombosis Risk Factor Assmnt - Choose All That Apply Each Factor Represents 1 point: Age 41-60 years, Medical pt on bed rest Thrombosis Risk Factor Assessment Total Risk Factor Score: 2 Thrombosis Risk Factor Assessment Level: Low Risk
[2020-11-16] MEDS: ENOXAPARIN 40 MG/0.4 ML SYRINGE SQ SCH (18:03)
[2020-11-17] MEDS: SODIUM CHLORIDE 0.9% 1,000 ML IV SCH ×3 (05:33→23:58)
[2020-11-17] MEDS: LEVOTHYROXINE 100 MCG TAB PO SCH (05:34)
--- NOTE | 2020-11-17 07:25 | CONS ---
CONSULTATION DATE OF SERVICE: 11/16/2020 REASON FOR CONSULTATION: Fever. HISTORY OF PRESENT ILLNESS: The patient is a 55-year-old male with past medical history significant for stroke, fibromyalgia, hard of hearing. The patient is a resident of [facility]. The patient has been sent to the ER for evaluation of fever that apparently started last week. The patient also noticed to have low pulse ox. With these symptoms, the patient was evaluated by the ER physician. On arrival to the ER, the patient did have a fever of 103.1 degrees Fahrenheit. The patient did have oxygen saturations of 95%, currently on 2 L nasal cannula. The patient did have a normal white count with lymphopenia. He did have elevated D-dimer. Creatinine was normal. Liver enzymes are normal. CRP is 224, procalcitonin 0.35. The patient did have a chest x-ray that showed left lower lobe pneumonia, infiltrate, correlate for pneumonia. The patient was started on Rocephin and Zithromax. Infectious Disease was consulted for further management of antibiotic therapy. Most of the information has been obtained from the chart and nursing staff and the patient was not able to provide any reliable history. REVIEW OF SYSTEMS: Positive points have been mentioned in HPI. Complete review of systems could not be obtained. PAST MEDICAL HISTORY: CVA, TIA, fibromyalgia, deafness, hypertension, seizure disorder, hypothyroidism. PAST SURGICAL HISTORY: Colonoscopy, craniotomy for neurofibromatosis. SOCIAL HISTORY: shelter resident. No history of smoking, drinking or drug use. FAMILY HISTORY: Father with history of COPD. Mother of lung disease. ALLERGIES: To multiple medication as listed on the chart. MEDICATIONS: Currently the patient is on Tylenol, Abilify, Zithromax, Rocephin, Depakote, Lovenox, folic acid, Synthroid,, Ativan, Lopressor, Theragran, Ditropan, Zoloft, Flomax. PHYSICAL EXAMINATION: VITAL SIGNS: Blood pressure 170/83 with a pulse of 79, temperature 100.2, he is 97% on 2 L nasal cannula. GENERAL DESCRIPTION: Patient is a middle-aged male lying in bed in no distress. HEENT: Examination shows no pallor or scleral icterus. Oral mucous membrane is dry. NECK: Trachea central, no thyromegaly. LUNGS: Unlabored breathing, decreased breath sounds at the bases. No wheeze. HEART: S1-S2, regular rate and rhythm. ABDOMEN: Soft, no tenderness. No guarding or rigidity. EXTREMITIES: No edema of the feet. SKIN: No rash or mass palpable. NEUROLOGICAL: Patient is awake, alert. Orientation could not be determined because of mental status. LAB: Hemoglobin 13.4, white count 4.6. D-dimer is 1.15, creatinine 0.73. Urine is negative. Browning PCR came back negative. DIAGNOSTIC IMPRESSION AND PLAN: Patient presented to hospital with fever, hypoxemia in this jail resident, likely secondary to pneumonia and high clinical suspicion for COVID-19 in this patient who is a jail resident. Did have lymphopenia, D-dimer elevation. Underlying bacterial pneumonia less likely but not entirely excluded. PLAN: 1. We will repeat his nasopharyngeal swab for the COVID-19. 2. We will obtain a CT angiogram of the chest in view of elevated D-dimer. 3. We will keep the patient on Rocephin and Zithromax at this point. 4. Droplet isolation, respiratory support. 5. We will follow on clinical condition and these investigations to further adjust medication if needed. Thank you for this consultation. Will follow this patient along with you. MMODL / IJN: [id number] /
[2020-11-17] MEDS: ENOXAPARIN 40 MG/0.4 ML SYRINGE SQ SCH (08:18)
[2020-11-17] MEDS: SERTRALINE 100 MG TAB PO SCH ×2 (08:19→21:09)
[2020-11-17] MEDS: TAMSULOSIN 0.4 MG CAP.ER.24H PO SCH (08:19)
[2020-11-17] MEDS: LORazepam 0.5 MG TAB PO SCH ×3 (08:19→21:09)
[2020-11-17] MEDS: METOPROLOL TARTRATE 50 MG TAB PO SCH ×2 (08:19→21:09)
[2020-11-17] MEDS: OXYBUTYNIN XL 5 MG TAB.ER.24 PO SCH (08:19)
[2020-11-17] MEDS: FOLIC ACID 1 MG TAB PO SCH ×2 (08:19→12:15)
[2020-11-17] MEDS: THIAMINE 100 MG TAB PO SCH ×2 (08:20→16:20)
[2020-11-17] MEDS: DIVALPROEX 500 MG TABLET.DR PO SCH ×3 (08:20→21:09)
[2020-11-17] MEDS: AZITHROMYCIN 500 MG TAB PO SCH (08:20)
[2020-11-17] MEDS ORDERED: methylPREDNISolone SOD SUCCI 125 MG/2 ML VIAL IV ONE (09:30)
[2020-11-17] MEDS: ACETAMINOPHEN TAB 325 MG TAB PO PRN (09:43)
[2020-11-17] MEDS: MULTIVITAMINS, THERA 1 EACH TAB PO SCH (12:15)
[2020-11-17] MEDS ORDERED: diphenhydrAMINE 50 MG/ML 1 ML VIAL IVP ONE (14:30)
[2020-11-17] MEDS ORDERED: FAMOTIDINE 20 MG/2 ML VIAL IV ONE (14:30)
--- NOTE | 2020-11-17 15:40 | CT ---
CT CHEST FOR PULMONARY EMBOLISM. EXAMINATION TYPE: CT chest angio for PE DATE OF EXAM: 11/17/2020 INDICATION: Elevated d-dimer, pneumonia. CT DLP: 360.9 mGycm, Automated exposure control for dose reduction was used. CONTRAST: Patient injected with 100 mL of Isovue 370. COMPARISON: None TECHNIQUE: CT of the chest is performed on a spiral scan at 2 mm thick sections. Study is performed with intravenous contrast timed for evaluation for pulmonary embolism. This will limit additional po rtions of the evaluation. 3-D MIP images reconstructed by the technologist are reviewed on the compu ter in the coronal and sagittal planes. FINDINGS: No persistent filling defects are evident to suggest an acute pulmonary embolism. No mediastinal or hilar adenopathy enlarged by CT criteria is evident. The ascending aorta diameter at the level of the main pulmonary artery is 3.4 cm. The main pulmonary artery diameter at the bifur cation is 3.1 cm. There is a left pleural effusion. Compressive atelectasis is adjacent with air bronchograms. Pneumoni a may be present as well. Limited CT section through the upper abdomen are unremarkable. IMPRESSIONS: 1. Small left pleural effusion with adjacent infiltrate. Correlate for pneumonia or atelectasis. 2. No acute pulmonary embolism
--- NOTE | 2020-11-17 22:27 | P.PN ---
Progress Note - Text Progress Note Date: 11/17/20 Chief Complaint: Fever History of presenting complaint: This is a pleasant 55-year-old patient who is a resident of [facility] in the [place]. Patient is hard of hearing and blind per history. Patient at the [facility] was noted to have elevated temperature last week. Has a history of seizure. Patient was noted to have a low pulse ox on room air but on oxygen. Pulse ox improved. EKG showed sinus rhythm. On arrival to the ER patient noted to have a temperature 103.1. Hx x-ray showed a infiltrate. Started on ceftriaxone for pneumonia. Patient is a difficult historian but able to answer questions. Pretty tired. Admitted with pneumonia. Started IV ceftriaxone. COVID 19 PCR not detected Today-oral intake good. With assistance. Laying in bed. Tired. No fever Review of systems: Difficult to obtain because patient is hard of hearing and blind Active Medications Acetaminophen (Acetaminophen Tab 325 Mg Tab) 650 mg PO Q6H PRN PRN Reason: Fever and/ or Pain Last Admin: 11/17/20 09:43 Dose: 650 mg Documented by: Aripiprazole (Aripiprazole 20 Mg Tab) 20 mg PO DAILY [facility] Last Admin: 11/17/20 08:20 Dose: 20 mg Documented by: Azithromycin (Azithromycin 500 Mg Tab) 500 mg PO DAILY [facility] Stop: 11/20/20 09:01 Last Admin: 11/17/20 08:20 Dose: 500 mg Documented by: Divalproex Sodium (Divalproex 500 Mg Tablet.Dr) 500 mg PO TID [facility] Last Admin: 11/17/20 21:09 Dose: 500 mg Documented by: Enoxaparin Sodium (Enoxaparin 40 Mg/0.4 Ml Syringe) 40 mg SQ DAILY [facility] Last Admin: 11/17/20 08:18 Dose: 40 mg Documented by: Folic Acid (Folic Acid 1 Mg Tab) 1 mg PO DAILY@1200 [facility] Last Admin: 11/17/20 12:15 Dose: 1 mg Documented by: Folic Acid (Folic Acid 1 Mg Tab) 1 mg PO DAILY@0900 [facility] Last Admin: 11/17/20 08:19 Dose: 1 mg Documented by: Sodium Chloride (Saline 0.9%) 1,000 mls @ 100 mls/hr IV .Q10H [facility] Last Admin: 11/17/20 16:20 Dose: 100 mls/hr Documented by: Ceftriaxone Sodium 2 gm/ (Sodium Chloride) 50 mls @ 100 mls/hr IVPB Q24HR [facility] Stop: 11/18/20 09:01 Last Admin: 11/17/20 08:20 Dose: 100 mls/hr Documented by: Levothyroxine Sodium (Levothyroxine 100 Mcg Tab) 100 mcg PO 0630 [facility] Last Admin: 11/17/20 05:34 Dose: 100 mcg Documented by: Lorazepam (Lorazepam 0.5 Mg Tab) 0.25 mg PO HS [facility] Last Admin: 11/17/20 21:09 Dose: 0.25 mg Documented by: Lorazepam (Lorazepam 0.5 Mg Tab) 0.5 mg PO BID@0800,1430 [facility] Last Admin: 11/17/20 14:25 Dose: 0.5 mg Documented by: Metoprolol Tartrate (Metoprolol Tartrate 50 Mg Tab) 50 mg PO BID [facility] Last Admin: 11/17/20 21:09 Dose: 50 mg Documented by: Miscellaneous Information (Pneumonia Protocol Utilized 1 Each Misc) 1 each PO ONCE PRN PRN Reason: Per Protocol Multivitamins (Multivitamins, Thera 1 Each Tab) 1 each PO DAILY@1200 [facility] Last Admin: 11/17/20 12:15 Dose: 1 each Documented by: Oxybutynin Chloride (Oxybutynin Xl 5 Mg Tab.Er.24) 5 mg PO DAILY [facility] Last Admin: 11/17/20 08:19 Dose: 5 mg Documented by: Sertraline HCl (Sertraline 100 Mg Tab) 100 mg PO BID [facility] Last Admin: 11/17/20 21:09 Dose: 100 mg Documented by: Tamsulosin HCl (Tamsulosin 0.4 Mg Cap.Er.24h) 0.4 mg PO DAILY [facility] Last Admin: 11/17/20 08:19 Dose: 0.4 mg Documented by: Thiamine HCl (Thiamine 100 Mg Tab) 100 mg PO BID-W/MEALS [facility] Last Admin: 11/17/20 16:20 Dose: 100 mg Documented by: Past medical history to include: Stroke, fibromyalgia, hard of hearing, legally blind, hypertension, seizure disorder, hypothyroid, neurofibromatosis W brain tumors with surgeries and patient become legally blind and completely deaf. 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 He takes his medications in applesauce or yogurt. His last seizure was many years ago. 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 Has a old left cochlear implant. Patient does use a tablet with an application for conversation Social history: Resident of [facility]. Does use a tablet physical application for conversation. Mika Rivas's patient's legal guardian patient smoked from 1982 through 2013. No alcohol. Family history: Patient cannot tell Physical examination: VITAL SIGNS: 100, 75, 18, 173/83, 98% on 2 L GENERAL: BMI 20.7, reclining in bed, awake, tired EYES: Pupils equal. Conjunctiva normal. HEENT: External appearance of nose and ears normal, oral cavity dry mucous membranes. NECK: JVD unable to assess; masses not palpable. HEART: First and second heart sounds are normal; no edema. LUNGS: Respiratory rate increased, decreased breath sounds. ABDOMEN: Soft, nontender, liver spleen not palpable, no masses palpable. PSYCH: Able to communicate. NEUROLOGICAL: [Cranial nerves grossly intact; no facial asymmetry, weakness of the limbs INVESTIGATIONS, reviewed in the clinical context: November 17: Pro-calcitonin 0.47 WBC 4.6 hemoglobin 13.4 platelets 104 d-dimer 1.15 sodium 132 potassium 4.4 bun 24 creatinine 0.73 pro-calcitonin 0.35 CRP 224 d-dimer 1.15 Coronavirus/PCR, influenza type A, influenza type B-old not detected Chest x-ray film personally reviewed by me-left lower lobe infiltrate EKG tracing personally reviewed by me-normal sinus rhythm Computed tomography scan of the brain modified calcified masses consistent with meningioma. Assessment and plan: Left lower lobe pneumonia suspect gram-negative organism. IV ceftriaxone. -Legal blindness from prior surgery -Very hard of hearing -Hypothyroid continue with Synthroid -Seizure disorder, continue with Depakote -Essential hypertension, continue Lopressor -Neurofibromatosis with history of multiple complaints surgeries -Anxiety depression otherwise specified -OCD -Legal guardian is Mika Rivas and -Bladder incontinence on Ditropan XL and Flomax
[2020-11-17] MEDS: PIPERACILLIN-TAZOBACTAM 3.375 GM in SODIUM CHLORIDE 0.9% 100 ML IVPB SCH (23:57)
[2020-11-18] MEDS: ACETAMINOPHEN TAB 325 MG TAB PO PRN ×2 (05:54→12:24)
[2020-11-18] MEDS: LEVOTHYROXINE 100 MCG TAB PO SCH (05:54)
[2020-11-18] MEDS: ENOXAPARIN 40 MG/0.4 ML SYRINGE SQ SCH (08:05)
[2020-11-18] MEDS: DIVALPROEX 500 MG TABLET.DR PO SCH ×3 (08:05→20:24)
[2020-11-18] MEDS: LORazepam 0.5 MG TAB PO SCH ×3 (08:05→20:25)
[2020-11-18] MEDS: PIPERACILLIN-TAZOBACTAM 3.375 GM in SODIUM CHLORIDE 0.9% 100 ML IVPB SCH ×3 (08:05→23:42)
[2020-11-18] MEDS: OXYBUTYNIN XL 5 MG TAB.ER.24 PO SCH (08:06)
[2020-11-18] MEDS: FOLIC ACID 1 MG TAB PO SCH ×2 (08:06→12:25)
[2020-11-18] MEDS: TAMSULOSIN 0.4 MG CAP.ER.24H PO SCH (08:06)
[2020-11-18] MEDS: SERTRALINE 100 MG TAB PO SCH ×2 (08:06→20:23)
[2020-11-18] MEDS: METOPROLOL TARTRATE 50 MG TAB PO SCH ×2 (08:06→20:23)
[2020-11-18] MEDS: THIAMINE 100 MG TAB PO SCH ×2 (08:06→16:39)
[2020-11-18] MEDS ORDERED: VANCOMYCIN IV PER PHARMACY 1 EACH MISC MISCELLANE PRN (11:54)
[2020-11-18] MEDS ORDERED: VANCOMYCIN 1,250 MG in SODIUM CHLORIDE 0.9% 250 ML IVPB ONE (12:15)
[2020-11-18] MEDS: MULTIVITAMINS, THERA 1 EACH TAB PO SCH (12:25)
[2020-11-18] MEDS: SODIUM CHLORIDE 0.9% 1,000 ML IV SCH ×2 (12:27→20:25)
[2020-11-18 13:06] LABS: WBC 5.3 k/uL (3.8-10.6)
[2020-11-18 13:07] LABS: Basophils % (A) 1 %; Eosinophils % (A) 0 %; HCT 37.4 % (39.0-53.0); HGB 13.4 gm/dL (13.0-17.5); Lymphocytes # (A) 0.6 k/uL (1.0-4.8); Lymphocytes % (A) 11 %; MCH 35.2 pg (25.0-35.0); MCHC 35.7 g/dL (31.0-37.0); MCV 98.6 fL (80.0-100.0); Mean Platelet Volume 7.2; Monocytes # (A) 0.4 k/uL (0-1.0); Monocytes % (A) 8 %; Neutrophils # (A) 4.2 k/uL (1.3-7.7); Neutrophils % (A) 78 %
[2020-11-18 13:10] LABS: Platelet Count 176 k/uL (150-450)
[2020-11-18 13:17] LABS: African American GFR (CKD) >90 (>60 ml/min/1.73 sqM); Anion Gap 1 mmol/L; Blood Urea Nitrogen 22 mg/dL (9-20); Calcium 8.2 mg/dL (8.4-10.2); Carbon Dioxide 38 mmol/L (22-30); Chloride 96 mmol/L (98-107); Glucose 90 mg/dL (74-99); Non-African American GFR(CKD) >90 (>60 ml/min/1.73 sqM); Sodium 135 mmol/L (137-145)
[2020-11-18] MEDS: IBUPROFEN 400 MG TAB PO PRN (17:27)
[2020-11-18] MEDS: VANCOMYCIN 1,250 MG in SODIUM CHLORIDE 0.9% 250 ML IVPB SCH (20:25)
[2020-11-18 23:49] LABS: Valproic Acid (Depakene) 78.6 ug/mL
[2020-11-19 00:04] LABS: C Reactive Protein 139.3 mg/L (<10.0)
--- NOTE | 2020-11-19 01:15 | PN ---
PROGRESS NOTE DATE OF SERVICE: 11/18/2020. REASON FOR CONSULTATION: Fever and possible pneumonia. INTERVAL HISTORY: Patient has been spiking fever today. The patient is hemodynamically stable, not on any pressor support. No vomiting, diarrhea or any other changes reported by nursing staff. PHYSICAL EXAMINATION: His blood pressure 150/70 with a pulse of 81, temperature of 102.8. He is 95% on room air. General description: The patient is a middle-aged male lying in bed in no distress. Respiratory system: Unlabored breathing, decreased breath sounds in the base. No wheeze. Heart S1, S2. Regular rate and rhythm. Abdomen: Soft, no tenderness. Extremities: No edema of the feet. LABS: Hemoglobin is 13.4, white count 5.3 with lymphopenia. BUN of 22, creatinine 0.73. Procalcitonin 0.47. Urine is negative. Browning PCR negative x2. CT angiogram did not show ground opacities commonly seen with Covid 19. DIAGNOSTIC IMPRESSION/PLAN: Patient admitted to the hospital with fever and cough with concern for possible pneumonia. Initial concern for Covid in this patient who did have two negative Covid tests with left lower lobe pneumonia, possible aspiration. Zosyn was added. Persistent fever is slightly concerning. Cultures will be repeated and antibiotic adjusted further if needed. Continue supportive care. MMODL / IJN: [id number] /
--- NOTE | 2020-11-19 01:40 | P.PN ---
Progress Note - Text Progress Note Date: 11/18/20 Chief Complaint: Fever History of presenting complaint: This is a pleasant 55-year-old patient who is a resident of [facility] in the [place]. Patient is hard of hearing and blind per history. Patient at the [facility] was noted to have elevated temperature last week. Has a history of seizure. Patient was noted to have a low pulse ox on room air but on oxygen. Pulse ox improved. EKG showed sinus rhythm. On arrival to the ER patient noted to have a temperature 103.1. Hx x-ray showed a infiltrate. Started on ceftriaxone for pneumonia. Patient is a difficult historian but able to answer questions. Pretty tired. Admitted with pneumonia. Started IV ceftriaxone. COVID 19 PCR not detected Today-continues to have fevers. Oral intake good. Laying in bed. Tired Review of systems: Difficult to obtain because patient is hard of hearing and blind Active Medications Acetaminophen (Acetaminophen Tab 325 Mg Tab) 650 mg PO Q6H PRN PRN Reason: Fever and/ or Pain Last Admin: 11/18/20 12:24 Dose: 650 mg Documented by: Aripiprazole (Aripiprazole 20 Mg Tab) 20 mg PO DAILY [facility] Last Admin: 11/18/20 08:06 Dose: 20 mg Documented by: Divalproex Sodium (Divalproex 500 Mg Tablet.) 500 mg PO TID [facility] Last Admin: 11/18/20 20:24 Dose: 500 mg Documented by: Enoxaparin Sodium (Enoxaparin 40 Mg/0.4 Ml Syringe) 40 mg SQ DAILY [facility] Last Admin: 11/18/20 08:05 Dose: 40 mg Documented by: Folic Acid (Folic Acid 1 Mg Tab) 1 mg PO DAILY@1200 [facility] Last Admin: 11/18/20 12:25 Dose: 1 mg Documented by: Folic Acid (Folic Acid 1 Mg Tab) 1 mg PO DAILY@0900 [facility] Last Admin: 11/18/20 08:06 Dose: 1 mg Documented by: Sodium Chloride (Saline 0.9%) 1,000 mls @ 100 mls/hr IV .Q10H [facility] Last Admin: 11/18/20 20:25 Dose: Not Given Documented by: Piperacillin Sod/Tazobactam (Sod 3.375 gm/ Sodium Chloride) 100 mls @ 25 mls/hr IVPB Q8HR [facility] Last Admin: 11/18/20 23:42 Dose: 25 mls/hr Documented by: Vancomycin HCl 1,250 mg/ (Sodium Chloride) 250 mls @ 125 mls/hr IVPB Q8H [facility] Last Admin: 11/18/20 20:25 Dose: 125 mls/hr Documented by: Ibuprofen (Ibuprofen 400 Mg Tab) 400 mg PO TID PRN PRN Reason: Mild Pain or Fever > 100.5 Last Admin: 11/18/20 17:27 Dose: 400 mg Documented by: Levothyroxine Sodium (Levothyroxine 100 Mcg Tab) 100 mcg PO 0630 [facility] Last Admin: 11/18/20 05:54 Dose: 100 mcg Documented by: Lorazepam (Lorazepam 0.5 Mg Tab) 0.25 mg PO HS [facility] Last Admin: 11/18/20 20:25 Dose: 0.25 mg Documented by: Lorazepam (Lorazepam 0.5 Mg Tab) 0.5 mg PO BID@0800,1430 [facility] Last Admin: 11/18/20 13:30 Dose: 0.5 mg Documented by: Metoprolol Tartrate (Metoprolol Tartrate 50 Mg Tab) 50 mg PO BID [facility] Last Admin: 11/18/20 20:23 Dose: 50 mg Documented by: Miscellaneous Information (Pneumonia Protocol Utilized 1 Each Misc) 1 each PO ONCE PRN PRN Reason: Per Protocol Miscellaneous Information (Vancomycin Trough Due 1 Each Misc) 0 each MISCELLANE DIRECTED ONE Stop: 11/19/20 12:01 Multivitamins (Multivitamins, Thera 1 Each Tab) 1 each PO DAILY@1200 [facility] Last Admin: 11/18/20 12:25 Dose: 1 each Documented by: Oxybutynin Chloride (Oxybutynin Xl 5 Mg Tab.Er.24) 5 mg PO DAILY [facility] Last Admin: 11/18/20 08:06 Dose: 5 mg Documented by: Sertraline HCl (Sertraline 100 Mg Tab) 100 mg PO BID [facility] Last Admin: 11/18/20 20:23 Dose: 100 mg Documented by: Tamsulosin HCl (Tamsulosin 0.4 Mg Cap.Er.24h) 0.4 mg PO DAILY [facility] Last Admin: 11/18/20 08:06 Dose: 0.4 mg Documented by: Thiamine HCl (Thiamine 100 Mg Tab) 100 mg PO BID-W/MEALS [facility] Last Admin: 11/18/20 16:39 Dose: 100 mg Documented by: Past medical history to include: Stroke, fibromyalgia, hard of hearing, legally blind, hypertension, seizure disorder, hypothyroid, neurofibromatosis W brain tumors with surgeries and patient become legally blind and completely deaf. 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 He takes his medications in applesauce or yogurt. His last seizure was many years ago. 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 Has a old left cochlear implant. Patient does use a tablet with an application for conversation Social history: Resident of [facility]. Does use a tablet physical application for conversation. Mika Rivas's patient's legal guardian patient smoked from 1982 through 2013. No alcohol. Family history: Patient cannot tell Physical examination: VITAL SIGNS: 102.5, 81, 20, 160/78, 95% room air GENERAL: BMI 20.7, reclining in bed, awake, tired EYES: Pupils equal. Conjunctiva normal. HEENT: External appearance of nose and ears normal, oral cavity dry mucous membranes. NECK: JVD unable to assess; masses not palpable. HEART: First and second heart sounds are normal; no edema. LUNGS: Respiratory rate increased, decreased breath sounds. ABDOMEN: Soft, nontender, liver spleen not palpable, no masses palpable. PSYCH: Able to communicate. NEUROLOGICAL: [Cranial nerves grossly intact; no facial asymmetry, weakness of the limbs INVESTIGATIONS, reviewed in the clinical context: November 18: WBC 5.3 hemoglobin 13.4 potassium 4 creatinine 0.73 CRP 139 November 17: Pro-calcitonin 0.47 WBC 4.6 hemoglobin 13.4 platelets 104 d-dimer 1.15 sodium 132 potassium 4.4 bun 24 creatinine 0.73 pro-calcitonin 0.35 CRP 224 d-dimer 1.15 Coronavirus/PCR, influenza type A, influenza type B-old not detected Chest x-ray film personally reviewed by me-left lower lobe infiltrate EKG tracing personally reviewed by me-normal sinus rhythm Computed tomography scan of the brain modified calcified masses consistent with meningioma. Assessment and plan: Left lower lobe pneumonia suspect gram-negative organism. IV ceftriaxone- changed over to IV Zosyn. A slow to respond. Febrile. -Legal blindness from prior surgery -Very hard of hearing -Hypothyroid continue with Synthroid -Seizure disorder, continue with Depakote -Essential hypertension, continue Lopressor -Neurofibromatosis with history of multiple complaints surgeries -Anxiety depression otherwise specified -OCD -Legal guardian is Mika Rivas and -Bladder incontinence on Ditropan XL and Flomax Continue current medication. Blood cultures pending. Follow with ID
[2020-11-19] MEDS: VANCOMYCIN 1,250 MG in SODIUM CHLORIDE 0.9% 250 ML IVPB SCH ×3 (05:18→20:13)
[2020-11-19] MEDS: LEVOTHYROXINE 100 MCG TAB PO SCH (05:19)
[2020-11-19] MEDS: PIPERACILLIN-TAZOBACTAM 3.375 GM in SODIUM CHLORIDE 0.9% 100 ML IVPB SCH ×3 (08:07→23:59)
[2020-11-19] MEDS: ENOXAPARIN 40 MG/0.4 ML SYRINGE SQ SCH (08:19)
[2020-11-19] MEDS: DIVALPROEX 500 MG TABLET.DR PO SCH ×3 (08:21→20:14)
[2020-11-19] MEDS: THIAMINE 100 MG TAB PO SCH ×2 (08:21→16:03)
[2020-11-19] MEDS: METOPROLOL TARTRATE 50 MG TAB PO SCH ×2 (08:21→20:14)
[2020-11-19] MEDS: LORazepam 0.5 MG TAB PO SCH ×3 (08:21→20:14)
[2020-11-19] MEDS: TAMSULOSIN 0.4 MG CAP.ER.24H PO SCH (08:21)
[2020-11-19] MEDS: OXYBUTYNIN XL 5 MG TAB.ER.24 PO SCH (08:21)
[2020-11-19] MEDS: FOLIC ACID 1 MG TAB PO SCH ×2 (08:23→12:43)
[2020-11-19] MEDS: SERTRALINE 100 MG TAB PO SCH ×2 (08:23→20:14)
[2020-11-19] MEDS: ACETAMINOPHEN TAB 325 MG TAB PO PRN ×2 (09:28→20:14)
[2020-11-19] MEDS: SODIUM CHLORIDE 0.9% 1,000 ML IV SCH ×2 (09:29→19:35)
[2020-11-19 11:56] LABS: African American GFR (CKD) 132.1 (60.0-200.0)
[2020-11-19] MEDS ORDERED: VANCOMYCIN TROUGH DUE 1 EACH MISC MISCELLANE ONE (12:00)
[2020-11-19] MEDS: IBUPROFEN 400 MG TAB PO PRN (12:42)
[2020-11-19] MEDS: MULTIVITAMINS, THERA 1 EACH TAB PO SCH (12:42)
[2020-11-20] MEDS: SODIUM CHLORIDE 0.9% 1,000 ML IV SCH ×2 (00:01→18:52)
--- NOTE | 2020-11-20 00:30 | P.PN ---
Progress Note - Text Progress Note Date: 11/20/20 Chief Complaint: Fever History of presenting complaint: This is a pleasant 55-year-old patient who is a resident of [facility] in the [place]. Patient is hard of hearing and blind per history. Patient at the [facility] was noted to have elevated temperature last week. Has a history of seizure. Patient was noted to have a low pulse ox on room air but on oxygen. Pulse ox improved. EKG showed sinus rhythm. On arrival to the ER patient noted to have a temperature 103.1. Hx x-ray showed a infiltrate. Started on ceftriaxone for pneumonia. Patient is a difficult historian but able to answer questions. Pretty tired. Admitted with pneumonia. Started IV ceftriaxone. COVID 19 PCR not detected Today-slight improvement in the fevers. Eating with assistance. Tired. Oral intake anywhere from 50-75% Review of systems: Difficult to obtain because patient is hard of hearing and blind Active Medications Acetaminophen (Acetaminophen Tab 325 Mg Tab) 650 mg PO Q6H PRN PRN Reason: Fever and/ or Pain Last Admin: 11/19/20 20:14 Dose: 650 mg Documented by: Aripiprazole (Aripiprazole 20 Mg Tab) 20 mg PO DAILY [facility] Last Admin: 11/19/20 08:26 Dose: 20 mg Documented by: Divalproex Sodium (Divalproex 500 Mg Tablet.Dr) 500 mg PO TID [facility] Last Admin: 11/19/20 20:14 Dose: 500 mg Documented by: Enoxaparin Sodium (Enoxaparin 40 Mg/0.4 Ml Syringe) 40 mg SQ DAILY [facility] Last Admin: 11/19/20 08:19 Dose: 40 mg Documented by: Folic Acid (Folic Acid 1 Mg Tab) 1 mg PO DAILY@1200 [facility] Last Admin: 11/19/20 12:43 Dose: 1 mg Documented by: Folic Acid (Folic Acid 1 Mg Tab) 1 mg PO DAILY@0900 [facility] Last Admin: 11/19/20 08:23 Dose: 1 mg Documented by: Sodium Chloride (Saline 0.9%) 1,000 mls @ 100 mls/hr IV .Q10H [facility] Last Admin: 11/20/20 00:01 Dose: Not Given Documented by: Piperacillin Sod/Tazobactam (Sod 3.375 gm/ Sodium Chloride) 100 mls @ 25 mls/hr IVPB Q8HR [facility] Last Admin: 11/19/20 23:59 Dose: 25 mls/hr Documented by: Vancomycin HCl 1,250 mg/ (Sodium Chloride) 250 mls @ 125 mls/hr IVPB Q8H [facility] Last Admin: 11/19/20 20:13 Dose: 125 mls/hr Documented by: Ibuprofen (Ibuprofen 400 Mg Tab) 400 mg PO TID PRN PRN Reason: Mild Pain or Fever > 100.5 Last Admin: 11/19/20 12:42 Dose: 400 mg Documented by: Levothyroxine Sodium (Levothyroxine 100 Mcg Tab) 100 mcg PO 0630 [facility] Last Admin: 11/19/20 05:19 Dose: 100 mcg Documented by: Lorazepam (Lorazepam 0.5 Mg Tab) 0.25 mg PO HS [facility] Last Admin: 11/19/20 20:14 Dose: 0.25 mg Documented by: Lorazepam (Lorazepam 0.5 Mg Tab) 0.5 mg PO BID@0800,1430 [facility] Last Admin: 11/19/20 14:35 Dose: 0.5 mg Documented by: Metoprolol Tartrate (Metoprolol Tartrate 50 Mg Tab) 50 mg PO BID [facility] Last Admin: 11/19/20 20:14 Dose: 50 mg Documented by: Miscellaneous Information (Pneumonia Protocol Utilized 1 Each Misc) 1 each PO ONCE PRN PRN Reason: Per Protocol Multivitamins (Multivitamins, Thera 1 Each Tab) 1 each PO DAILY@1200 [facility] Last Admin: 11/19/20 12:42 Dose: 1 each Documented by: Oxybutynin Chloride (Oxybutynin Xl 5 Mg Tab.Er.24) 5 mg PO DAILY [facility] Last Admin: 11/19/20 08:21 Dose: 5 mg Documented by: Sertraline HCl (Sertraline 100 Mg Tab) 100 mg PO BID [facility] Last Admin: 11/19/20 20:14 Dose: 100 mg Documented by: Tamsulosin HCl (Tamsulosin 0.4 Mg Cap.Er.24h) 0.4 mg PO DAILY [facility] Last Admin: 11/19/20 08:21 Dose: 0.4 mg Documented by: Thiamine HCl (Thiamine 100 Mg Tab) 100 mg PO BID-W/MEALS [facility] Last Admin: 11/19/20 16:03 Dose: 100 mg Documented by: Past medical history to include: Stroke, fibromyalgia, hard of hearing, legally blind, hypertension, seizure disorder, hypothyroid, neurofibromatosis W brain tumors with surgeries and patient become legally blind and completely deaf. 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 He takes his medications in applesauce or yogurt. His last seizure was many years ago. 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 Has a old left cochlear implant. Patient does use a tablet with an application for conversation Social history: Resident of [facility] of [facility]. Does use a tablet physical application for conversation. Mika Rivas's patient's legal guardian patient smoked from 1981 through 2013. No alcohol. Family history: Patient cannot tell Physical examination: VITAL SIGNS: 100.9, 96, 14, 120s by 71, 93% on 2 L GENERAL: BMI 20.7, reclining in bed, awake, tired EYES: Pupils equal. Conjunctiva normal. HEENT: External appearance of nose and ears normal, oral cavity dry mucous membranes. NECK: JVD unable to assess; masses not palpable. HEART: First and second heart sounds are normal; no edema. LUNGS: Respiratory rate increased, decreased breath sounds. ABDOMEN: Soft, nontender, liver spleen not palpable, no masses palpable. PSYCH: Able to communicate. NEUROLOGICAL: [Cranial nerves grossly intact; no facial asymmetry, weakness of the limbs INVESTIGATIONS, reviewed in the clinical context: November 19: Creatinine 0.6 November 18: WBC 5.3 hemoglobin 13.4 potassium 4 creatinine 0.73 CRP 139 November 17: Pro-calcitonin 0.47 WBC 4.6 hemoglobin 13.4 platelets 104 d-dimer 1.15 sodium 132 potassium 4.4 bun 24 creatinine 0.73 pro-calcitonin 0.35 CRP 224 d-dimer 1.15 Coronavirus/PCR, influenza type A, influenza type B-old not detected Chest x-ray film personally reviewed by me-left lower lobe infiltrate EKG tracing personally reviewed by me-normal sinus rhythm Computed tomography scan of the brain modified calcified masses consistent with meningioma. Assessment and plan: -Left lower lobe pneumonia suspect gram-negative organism. IV ceftriaxone- changed r to IV Zosyn. Fevers started to come down though slowly -Severe sepsis from pneumonia, POA -Legal blindness from prior surgery -Very hard of hearing -Hypothyroid continue with Synthroid -Seizure disorder, continue with Depakote -Essential hypertension, continue Lopressor -Neurofibromatosis with history of multiple complaints surgeries -Anxiety depression otherwise specified -OCD -Legal guardian is Mika Dugangrace -Bladder incontinence on Ditropan XL and Flomax Continue with IV Zosyn, vancomycin, IV fluids. Follow with ID
--- NOTE | 2020-11-20 01:04 | PN ---
PROGRESS NOTE DATE OF SERVICE: 11/19/2020 REASON FOR FOLLOWUP: Pneumonia. INTERVAL HISTORY: The patient is currently afebrile. However, he did spike a fever this morning of 101 degrees Fahrenheit. The patient is breathing comfortably on nasal cannula oxygen. No vomiting, diarrhea or any other changes reported by the nursing staff. PHYSICAL EXAMINATION: Blood pressure 142/82 with a pulse of 72, temperature 98.3. General description is a middle-aged male lying in bed in no distress. Respiratory system: Unlabored breathing, decreased breath sounds in the base, with no wheeze. Heart S1, S2. Regular rate and rhythm. Abdomen soft, no tenderness. LABS: Hemoglobin 13.1, white count 5.3. BUN of 22, creatinine 0.76. DIAGNOSTIC IMPRESSION AND PLAN: Patient with fever, source pneumonia, high clinical suspicion for Covid. However, multiple Covid tests have been negative. Patient's fever responded to addition of Vanco that will continue while watching his kidney function closely. Repeat the x-ray and inflammatory markers tomorrow. Continue supportive care. MMODL / IJN: [id number] /
[2020-11-20] MEDS: VANCOMYCIN 1,250 MG in SODIUM CHLORIDE 0.9% 250 ML IVPB SCH ×3 (05:38→20:54)
[2020-11-20] MEDS: LEVOTHYROXINE 100 MCG TAB PO SCH (05:38)
--- NOTE | 2020-11-20 08:02 | XR ---
EXAMINATION TYPE: XR chest 2V DATE OF EXAM: 11/20/2020 COMPARISON: 11/16/2020 INDICATION: Pneumonia TECHNIQUE: Frontal and lateral views of the chest are obtained. FINDINGS: The heart size is normal. The pulmonary vasculature is normal. Infiltration left mid and lower lung field. Findings are worsened over the interval. Mild infiltrate is developing at the right base. Correlate for atypical pneumonia IMPRESSION: 1. Developing bilateral lung infiltrates greater on the left, correlate for atypical pneumonia
[2020-11-20] MEDS: OXYBUTYNIN XL 5 MG TAB.ER.24 PO SCH (09:36)
[2020-11-20] MEDS: TAMSULOSIN 0.4 MG CAP.ER.24H PO SCH (09:37)
[2020-11-20] MEDS: LORazepam 0.5 MG TAB PO SCH ×3 (09:37→20:08)
[2020-11-20] MEDS: FOLIC ACID 1 MG TAB PO SCH ×3 (09:37→09:38)
[2020-11-20] MEDS: SERTRALINE 100 MG TAB PO SCH ×2 (09:37→20:08)
[2020-11-20] MEDS: MULTIVITAMINS, THERA 1 EACH TAB PO SCH (09:37)
[2020-11-20] MEDS: DIVALPROEX 500 MG TABLET.DR PO SCH ×3 (09:37→20:08)
[2020-11-20] MEDS: THIAMINE 100 MG TAB PO SCH ×2 (09:37→16:58)
[2020-11-20] MEDS: METOPROLOL TARTRATE 50 MG TAB PO SCH ×2 (09:37→20:08)
[2020-11-20] MEDS: ENOXAPARIN 40 MG/0.4 ML SYRINGE SQ SCH (09:38)
[2020-11-20] MEDS: PIPERACILLIN-TAZOBACTAM 3.375 GM in SODIUM CHLORIDE 0.9% 100 ML IVPB SCH ×2 (09:38→15:14)
[2020-11-20 11:17] LABS: HCT 35.2 % (39.6-50.0); HGB 11.7 g/dL (13.0-17.0); MCH 33.7 pg (27.0-32.0); MCHC 33.2 g/dL (32.0-37.0); MCV 101.4 fL (80.0-97.0); Mean Platelet Volume 8.8 fL (9.5-12.2); Platelet Count 150 X 10*3/uL (140-440); RBC 3.47 X 10*6/uL (4.40-5.60); RDW 13.3 % (11.5-14.5); WBC 9.99 X 10*3/uL (4.50-10.00)
[2020-11-20 11:49] LABS: Basophils # (A) 0.05 X 10*3/uL (0.00-0.10); Basophils % (A) 0.5 %; Eosinophils # (A) 0.02 X 10*3/uL (0.04-0.35); Eosinophils % (A) 0.2 %; Lymphocytes # (A) 1.19 X 10*3/uL (0.90-5.00); Lymphocytes % (A) 11.9 %; Monocytes # (A) 0.85 X 10*3/uL (0.20-1.00); Monocytes % (A) 8.5 %; Neutrophils # (A) 7.39 X 10*3/uL (1.80-7.70)
[2020-11-20 11:56] LABS: African American GFR (CKD) 156.1 (60.0-200.0); Anion Gap 6.3 mmol/L (4.00-12.00); C Reactive Protein 15.7 mg/dL (0.0-0.8); Carbon Dioxide 32.7 mmol/L (21.6-31.8); Non-African American GFR(CKD) 134.7 (60.0-200.0); Potassium 3.4 mmol/L (3.5-5.5)
--- NOTE | 2020-11-20 12:56 | P.PN ---
Subjective Primary cords: This is a pleasant 55-year-old patient who is a resident of [facility] in the [place]. Patient is hard of hearing and blind per history. Patient at the [facility] was noted to have elevated temperature last week. Has a history of seizure. Patient was noted to have a low pulse ox on room air but on oxygen. Pulse ox improved. EKG showed sinus rhythm. On arrival to the ER patient noted to have a temperature 103.1. Hx x-ray showed a infiltrate. Started on ceftriaxone for pneumonia. Patient is a difficult historian but able to answer questions. Pretty tired. Admitted with pneumonia. Started IV ceftriaxone. COVID 19 PCR not detected Today-slight improvement in the fevers. Eating with assistance. Tired. Oral intake anywhere from 50-75% Subjective: 11/20/2020 This is a pleasant 55 years old male who presents with left lower lobe pneumonia. He was initially sent from his ECF at [facility] for persistent fever, was treated with Zosyn and IV vancomycin my seen and normal saline at 100 mL per hour. Patient does not have fever for more than 24 hours. His last elevated temperature was 101 on 11/19 morning and 100.6 at afternoon. He is awake but hard of hearing and blind. His breathing quietly. Labs including CBC and BMP are stable with creatinine normal at 0.4. Mild low potassium was replaced. He is been on IV vancomycin and Zosyn as per ID team CT of the brain showing multiple meningiomas and he has history of seizure on medication Repeat proctoscopy gallstone in and final results of blood culture are pending Objective - Vital Signs Vital signs: Vital Signs Temp 98.6 F 11/20/20 07:39 Pulse 60 11/20/20 07:39 Resp 16 11/20/20 07:39 BP 150/71 11/20/20 07:39 Pulse Ox 96 11/20/20 07:39 Intake & Output 11/19/20 11/20/20 11/20/20 18:59 06:59 18:59 Intake Total 2150 Output Total 700 1225 Balance -700 925 Intake: IV 1000 Sodium Chloride 0.9% 1, 1000 000 ml @ 100 mls/hr IV . Q10H [facility] Rx#:[id number] Intake, IV Titration 350 Amount Piperacillin-Tazobactam 3 100 .375 gm In Sodium Chloride 0.9% 100 ml @ 25 mls/hr IVPB Q8HR [facility] Rx# :[id number] Vancomycin 1,250 mg In 250 Sodium Chloride 0.9% 250 ml @ 125 mls/hr IVPB Q8H [facility] Rx#:[id number] Oral 800 Output: Urine 700 1225 Other: Voiding Method Indwelling Catheter Indwelling Catheter - Exam GENERAL: The patient is alert and oriented x3, not in any acute distress. Well developed, well nourished. HEENT: Pupils are round and equally reacting to light. EOMI. No scleral icterus. No conjunctival pallor. Normocephalic, atraumatic. No pharyngeal erythema. No thyromegaly. CARDIOVASCULAR: S1 and S2 present. No murmurs, rubs, or gallops. PULMONARY: Chest is clear to auscultation, no wheezing or crackles. ABDOMEN: Soft, nontender, nondistended, normoactive bowel sounds. No palpable organomegaly. MUSCULOSKELETAL: No joint swelling or deformity. EXTREMITIES: No cyanosis, clubbing, or pedal edema. NEUROLOGICAL: Gross neurological examination did not reveal any focal deficits. SKIN: No rashes. no petechiae. - Labs CBC & Chem 7: 11/20/20 08:04 11/20/20 08:04 Labs: Abnormal Lab Results - Last 24 Hours (Table) 11/20/20 11/20/20 Range/Units 08:04 08:04 RBC 3.47 L (4.40-5.60) X 10*6/uL Hgb 11.7 L (13.0-17.0) g/dL Hct 35.2 L (39.6-50.0) % MCV 101.4 H (80.0-97.0) fL MCH 33.7 H (27.0-32.0) pg MPV 8.8 L (9.5-12.2) fL Immature Gran # 0.49 H (0.00-0.04) X 10*3/uL Eosinophils # 0.02 L (0.04-0.35) X 10*3/uL Potassium 3.4 L (3.5-5.5) mmol/L Carbon Dioxide 32.7 H (21.6-31.8) mmol/L Creatinine 0.4 L (0.6-1.5) mg/dL BUN/Creatinine Ratio 45.00 H (12.00-20.00) Ratio Calcium 8.0 L (8.7-10.3) mg/dL C-Reactive Protein 15.7 H (0.0-0.8) mg/dL Microbiology - Last 24 Hours (Table) 11/18/20 23:37 Blood Culture - Preliminary Blood No Growth after 24 hours 11/15/20 12:40 Blood Culture - Preliminary Blood No Growth after 96 hours 11/15/20 12:35 Blood Culture - Preliminary Blood No Growth after 96 hours Assessment and Plan Assessment: -Left lower lobe pneumonia suspect gram-negative organism. Continue with IV vancomycin and to IV Zosyn. Follow-up temperature. Infectious disease team on the case -Severe sepsis from pneumonia, POA. Improved -Legal blindness from prior surgery -Very hard of hearing -Hypothyroid continue with Synthroid -Seizure disorder, continue with Depakote -Essential hypertension, continue Lopressor -Neurofibromatosis with history of multiple complaints surgeries -Anxiety depression otherwise specified, non-actively should -Legal guardian is Mika Rivas -Bladder incontinence on Ditropan XL and Flomax DVT prophylaxis: Lovenox GI prophylaxis: Pepcid
[2020-11-20 14:57] VITALS: BMI 20.7
--- NOTE | 2020-11-20 15:56 | PN ---
PROGRESS NOTE DATE OF SERVICE: 11/20/2020 REASON FOR FOLLOWUP: Pneumonia. INTERVAL HISTORY: The patient is currently afebrile. No fever in the last 24 hours. The patient is slightly more awake and alert. He is breathing comfortably on nasal cannula oxygen. No vomiting or diarrhea or any changes reported by the nursing staff. PHYSICAL EXAMINATION: Blood pressure 139/90 with a pulse of 68, temperature 98. He is 98% on 2 L nasal cannula. General description is a middle-aged male lying in bed in no distress. RESPIRATORY SYSTEM: Unlabored breathing with decreased breath sounds at the base. No wheeze. HEART: S1, S2. Regular rate and rhythm. ABDOMEN: Soft. No tenderness. LABS: Hemoglobin is 11.7, white count 9.9. BUN of 18, creatinine 0.4. DIAGNOSTIC IMPRESSION AND PLAN: Patient admitted to hospital with fever, concerning for pneumonia. Negative for COVID. Possible Gram-positive or Gram-negative, as the patient clinically responded to the Zosyn and vancomycin. Will switch him over to Unasyn, and if the patient continues to improve, may finish therapy with oral Augmentin and Zyvox. Recommend keeping the patient for 24 hours in the hospital to make sure no new fever. Will change antibiotic therapy. MMODL / IJN: [id number] /
[2020-11-20] MEDS: ACETAMINOPHEN TAB 325 MG TAB PO PRN (16:54)
[2020-11-20] MEDS: AMPICILLIN-SULBACTAM 3 GM in SODIUM CHLORIDE 0.9% 100 ML IVPB SCH ×2 (19:26→22:51)
[2020-11-20] MEDS: FAMOTIDINE 20 MG/2 ML VIAL IV SCH (20:08)
[2020-11-21] MEDS: LEVOTHYROXINE 100 MCG TAB PO SCH (06:27)
[2020-11-21] MEDS: VANCOMYCIN 1,250 MG in SODIUM CHLORIDE 0.9% 250 ML IVPB SCH (06:27)
[2020-11-21] MEDS: AMPICILLIN-SULBACTAM 3 GM in SODIUM CHLORIDE 0.9% 100 ML IVPB SCH (06:27)
[2020-11-21] MEDS: OXYBUTYNIN XL 5 MG TAB.ER.24 PO SCH (07:42)
[2020-11-21] MEDS: FOLIC ACID 1 MG TAB PO SCH (07:42)
[2020-11-21] MEDS: ENOXAPARIN 40 MG/0.4 ML SYRINGE SQ SCH (07:42)
[2020-11-21] MEDS: MULTIVITAMINS, THERA 1 EACH TAB PO SCH (07:43)
[2020-11-21] MEDS: LORazepam 0.5 MG TAB PO SCH (07:43)
[2020-11-21] MEDS: TAMSULOSIN 0.4 MG CAP.ER.24H PO SCH (07:43)
[2020-11-21] MEDS: METOPROLOL TARTRATE 50 MG TAB PO SCH (07:43)
[2020-11-21] MEDS: DIVALPROEX 500 MG TABLET.DR PO SCH (07:43)
[2020-11-21] MEDS: SERTRALINE 100 MG TAB PO SCH (07:43)
[2020-11-21] MEDS: THIAMINE 100 MG TAB PO SCH (07:43)
[2020-11-21] MEDS: FAMOTIDINE 20 MG/2 ML VIAL IV SCH (07:43)
[2020-11-21 08:17] VITALS: BP 157/80; PULSE 65; RESP 18; TEMP 97.9
[2020-11-21] MEDS ORDERED: VANCOMYCIN TROUGH DUE 1 EACH MISC MISCELLANE ONE (12:00)
--- NOTE | 2020-11-21 12:58 | P.DS ---
Providers Date of admission: 11/15/20 14:42 Attending physician: Cassius Swartz Consults: 11/16/20 13:59 Consult Physician Routine Consulting Provider: Manny Roach Consult Reason/Comments: fever Do you want consulting provider notified?: Yes Primary care physician: Bryant Bhagat Hospital Course: Diagnoses: -Hospital-acquired Left lower lobe pneumonia suspect gram-negative organism and gram-positive cocci. Stable for discharge per ID on oral antibiotic -Severe sepsis from pneumonia, POA. Improved -Legal blindness from prior surgery -Very hard of hearing -Hypothyroid continue with Synthroid -Seizure disorder, continue with Depakote -Essential hypertension, continue Lopressor -Neurofibromatosis with history of multiple complaints surgeries -Anxiety depression otherwise specified, non-actively should -Legal guardian is Mika Rivas -Bladder incontinence on Ditropan XL and Flomax Hospital course: This is a pleasant 55 years old male who presents with left lower lobe pneumonia. He was initially sent from his ECF at [facility] for persistent fever, was treated with Zosyn and IV vancomycin my seen and normal saline at 100 mL per hour. Patient does not have fever for more than 48 hours. His last elevated temperature was 101 on 11/19 morning and 100.6 at afternoon. He is awake but hard of hearing and blind. His breathing quietly. Labs including CBC and BMP are stable with creatinine normal at 0.4. He will be discharged on oral antibiotic as per ID team with Augmentin and Zyvox CT of the brain showing multiple meningiomas and he has history of seizure on medication Patient showed interval improvement and his back to his baseline, no dyspnea, no chest pain, no tachypnea. No abdominal pain or nausea vomiting. He tolerates diet. No fever Patient was cleared for discharge by infectious disease team Problems and management plan were discussed with the patient and he verbalized understanding and acceptance Patient was found stable and can be discharged home however he needs follow-up as an outpatient. Patient was instructed to follow up with PCP Dr. Bhagat within one week and patient agrees Physical exam Gen: patient is a AAOx3, no distress CVS: S1-S2, RRR, no murmur Lungs: B/L CTA, no wheezing Abdomen: soft, no distention, no tenderness, positive bowel sounds Extremity: no leg edema or induration Time spent more than 35 minutes Patient Condition at Discharge: Fair Plan - Discharge Summary Discharge Rx Participant: No New Discharge Prescriptions: No Action ARIPiprazole [Abilify] 20 mg PO DAILY@0900 LORazepam [Ativan] 0.25 mg PO HS@2100 Ibuprofen [Motrin] 600 mg PO Q6H PRN PRN Reason: Fever Lactose-Reduced Food [Ensure Plus] 240 ml PO TID@0900,1300,2100 Divalproex Sodium [Depakote] 500 mg PO TID@0900,1300,2100 Metoprolol Tartrate [Lopressor] 50 mg PO BID@0900,2100 Multivitamins, Thera [Multivitamin (formulary)] 1 tab PO DAILY@0900 Oxybutynin Xl [Ditropan XL] 5 mg PO DAILY@0900 Azithromycin [Zithromax] 250 mg PO DAILY Acetaminophen Tab [Tylenol] 650 mg PO Q4H PRN PRN Reason: GENERAL DISCOMFORT Thiamine [Vitamin B-1] 100 mg PO BID@0900,2100 Sertraline HCl [Zoloft] 100 mg PO BID@0900,2100 Heparin Sodium,Porcine [Heparin Sodium] 5,000 unit SQ Q12HR@0900,2100 Levothyroxine Sodium [Synthroid] 100 mcg PO HS@2100 LORazepam [Ativan] 0.5 mg PO BID@0900,1430 Folic Acid 1 mg PO DAILY@0900 Tamsulosin [Flomax] 0.4 mg PO DAILY@0900 Phenazopyridine [Pyridium] 100 mg PO Q8H PRN PRN Reason: URINARY PAIN Discharge Medication List ARIPiprazole [Abilify] 20 mg PO DAILY@0900 11/25/15 [History] LORazepam [Ativan] 0.25 mg PO HS@2100 10/15/20 [History] Acetaminophen Tab [Tylenol] 650 mg PO Q4H PRN 11/15/20 [History] Azithromycin [Zithromax] 250 mg PO DAILY 11/15/20 [History] Divalproex Sodium [Depakote] 500 mg PO TID@0900,1300,2100 11/15/20 [History] Folic Acid 1 mg PO DAILY@0900 11/15/20 [History] Heparin Sodium,Porcine [Heparin Sodium] 5,000 unit SQ Q12HR@0900,209911/15/20 [History] Ibuprofen [Motrin] 600 mg PO Q6H PRN 11/15/20 [History] LORazepam [Ativan] 0.5 mg PO BID@0900,1430 11/15/20 [History] Lactose-Reduced Food [Ensure Plus] 240 ml PO TID@0900,1300,209911/15/20 [History] Levothyroxine Sodium [Synthroid] 100 mcg PO HS@209911/15/20 [History] Metoprolol Tartrate [Lopressor] 50 mg PO BID@0900,209911/15/20 [History] Multivitamins, Thera [Multivitamin (formulary)] 1 tab PO DAILY@0911/15/20 [History] Oxybutynin Xl [Ditropan XL] 5 mg PO DAILY@89911/15/20 [History] Phenazopyridine [Pyridium] 100 mg PO Q8H PRN 11/15/20 [History] Sertraline HCl [Zoloft] 100 mg PO BID@0900,209911/15/20 [History] Tamsulosin [Flomax] 0.4 mg PO DAILY@0911/15/20 [History] Thiamine [Vitamin B-1] 100 mg PO BID@0900,209911/15/20 [History] Follow up Appointment(s)/Referral(s): Bryant Bhagat MD [Primary Care Provider] - 1-2 days
[2020-11-21 15:20] LABS: African American GFR (CKD) 142.4 (60.0-200.0); Anion Gap 8.2 mmol/L (4.00-12.00); Calcium 7.9 mg/dL (8.7-10.3); Carbon Dioxide 31.8 mmol/L (21.6-31.8); Magnesium 1.7 mg/dL (1.5-2.4); Non-African American GFR(CKD) 122.9 (60.0-200.0); Potassium 3.4 mmol/L (3.5-5.5)
--- NOTE | 2020-11-21 15:21 | PN ---
PROGRESS NOTE DATE OF SERVICE: 11/21/2020 REASON FOR FOLLOWUP: Pneumonia. INTERVAL HISTORY: The patient was seen on rounds early this afternoon. The patient has been afebrile with no fever recorded in the last 48 hours. The patient has been breathing comfortably, currently on 2 L nasal cannula. The patient was being fed by the nurse aide, mentioned no choking on the food. No vomiting or diarrhea has been reported. Patient himself was unable to provide any history. PHYSICAL EXAMINATION: Blood pressure 157/80 with a pulse of 65 temperature 97.9. He is 94% on 2 L nasal cannula. General description is a middle-aged male lying in bed in no distress. RESPIRATORY SYSTEM: Unlabored breathing, decreased breath sounds at the bases, no wheeze. HEART: S1, S2. Regular rate and rhythm. ABDOMEN: Soft. No tenderness. LABS: White count was . Blood culture has been negative. DIAGNOSTIC IMPRESSION AND PLAN: Patient admitted to the hospital with fever, pneumonia, possible aspiration. The patient overall improvement. Blood cultures have been negative. Antibiotic adjusted to doxycycline and Augmentin for 10 days and close outpatient followup. MMODL / IJN: [id number] /
== END 2020-11-21 14:35 | DRG 871 ==
LOC: EC 11:43 → 4SSUR 14:42
PROVIDERS: ADMIT Hospitalist; ATTEND Hospitalist
DX: A41.9 Sepsis, unspecified organism (principal); J69.0 Pneumonitis due to inhalation of food and vomit; J15.6 Pneumonia due to other Gram-negative bacteria; E87.1 Hypo-osmolality and hyponatremia; R62.7 Adult failure to thrive; Q85.00 Neurofibromatosis, unspecified; G40.909 Epilepsy, unspecified, not intractable, without status epilepticus; R65.20 Severe sepsis without septic shock; D32.9 Benign neoplasm of meninges, unspecified; Z20.822 Contact with and (suspected) exposure to COVID-19; R09.02 Hypoxemia; I10 Essential (primary) hypertension; E86.0 Dehydration; D72.810 Lymphocytopenia; E03.9 Hypothyroidism, unspecified; F41.8 Other specified anxiety disorders; R32 Unspecified urinary incontinence; F42.9 Obsessive-compulsive disorder, unspecified; H91.90 Unspecified hearing loss, unspecified ear; M79.7 Fibromyalgia; G51.0 Bell's palsy; K64.9 Unspecified hemorrhoids; H54.8 Legal blindness, as defined in USA; Z79.890 Hormone replacement therapy; Z79.899 Other long term (current) drug therapy; Z86.73 Personal history of transient ischemic attack (TIA), and cerebral infarction without residual deficits; Z96.21 Cochlear implant status; Z87.891 Personal history of nicotine dependence; Z88.8 Allergy status to other drugs, medicaments and biological substances; Z91.010 Allergy to peanuts; Z82.5 Family history of asthma and other chronic lower respiratory diseases; Z81.2 Family history of tobacco abuse and dependence
CPT/HCPCS: 36415; 70450; 71045; 71046; 71275; 80048; 80053; 80164; 80202; 81001; 81003; 82550; 82565; 82728; 83605; 83615; 83735; 83880; 84145; 85025; 85379; 85610; 85730; 86140; 87040; 87502; 87635; 93005; 94760; 96365; 96375; 99285

== ENCOUNTER 2021-02-28 15:59 | Emergency (ER) | payer MEDICARE, OTHER ==
[2021-02-28 16:13] VITALS: BP 125/75; PULSE 68; RESP 16; TEMP 98
--- NOTE | 2021-02-28 16:21 | ED ---
General Adult HPI - General Chief complaint: Wound/Laceration Stated complaint: Fall Time Seen by Provider: 02/28/21 16:01 Source: patient Mode of arrival: wheelchair Limitations: language barrier - History of Present Illness Initial comments: Patient is a 55-year-old male with history of CVA, neurofibromatosis, presenting to the emergency department from [facility] after a fall. Patient was sitting in his wheelchair and he slid forward, hitting his head on a heater. He has a small abrasion noted to the outside of the right eye. There was no loss of consciousness, he denies having headache, no blurry vision. He denies any neck pain. He is not on blood thinners. He denies any other complaints at this time. His vital signs are stable upon arrival. - Related Data Home Medications Medication Instructions Recorded Confirmed ARIPiprazole [Abilify] 20 mg PO DAILY@0900 11/25/15 11/15/20 Acetaminophen Tab [Tylenol] 650 mg PO Q4H PRN 11/15/20 11/15/20 Azithromycin [Zithromax] 250 mg PO DAILY 11/15/20 11/15/20 Divalproex Sodium [Depakote] 500 mg PO TID@0900,1300,209911/15/20 11/15/20 Folic Acid 1 mg PO DAILY@89911/15/20 11/15/20 Heparin Sodium,Porcine [Heparin 5,000 unit SQ Q12HR@0900,209911/15/20 11/15/20 Sodium] Lactose-Reduced Food [Ensure Plus] 240 ml PO TID@0900,1300,209911/15/20 11/15/20 Levothyroxine Sodium [Synthroid] 100 mcg PO HS@209911/15/20 11/15/20 Metoprolol Tartrate [Lopressor] 50 mg PO BID@0900,209911/15/20 11/15/20 Multivitamins, Thera [Multivitamin 1 tab PO DAILY@89911/15/20 11/15/20 (formulary)] Oxybutynin Xl [Ditropan XL] 5 mg PO DAILY@0900 11/15/20 11/15/20 Phenazopyridine [Pyridium] 100 mg PO Q8H PRN 11/15/20 11/15/20 Sertraline HCl [Zoloft] 100 mg PO BID@0900,2100 11/15/20 11/15/20 Tamsulosin [Flomax] 0.4 mg PO DAILY@0900 11/15/20 11/15/20 Thiamine [Vitamin B-1] 100 mg PO BID@0900,2100 11/15/20 11/15/20 Previous Rx's Medication Instructions Recorded Amoxicillin/Potassium Clav 1 tab PO Q12HR 10 Days #20 tab 11/21/20 [Augmentin 875-125 Tablet] Doxycycline Hyclate 100 mg PO BID 10 Days #20 tab 11/21/20 Ibuprofen [Motrin] 600 mg PO Q6H PRN 3 Days #0 11/21/20 LORazepam [Ativan] 0.25 mg PO BID@0900,1430 #3 tab 11/21/20 LORazepam [Ativan] 0.25 mg PO HS@2100 PRN #1 11/21/20 Allergies Allergy/AdvReac Type Severity Reaction Status Date / Time alprazolam [From Xanax] Allergy Unknown Verified 11/12/20 15:27 buspirone HCl [From BuSpar] Allergy Rash/Hives Verified 11/12/20 15:27 [place] And Derivatives Allergy Unknown Verified 11/15/20 18:07 [[place]] iodine Allergy Unknown Verified 11/12/20 15:27 Childhood mite-Dermatophagoides Allergy Unknown Verified 11/15/20 18:07 farinae, vega morphine Allergy Unknown Verified 11/15/20 18:07 peanut Allergy Unknown Verified 11/12/20 15:27 tomato Allergy Unknown Verified 11/15/20 18:07 haloperidol [From Haldol] AdvReac personality Verified 11/12/20 15:27 changes haloperidol lactate AdvReac personality Verified 11/12/20 15:27 [From Haldol] changes CT SCAN DYE Allergy Unknown Uncoded 11/12/20 15:27 Childhood Review of Systems ROS Statement: Those systems with pertinent positive or pertinent negative responses have been documented in the HPI. ROS Other: All systems not noted in ROS Statement are negative. Past Medical History Past Medical History: CVA/TIA, Eye Disorder, Fibromyalgia, Hearing Disorder / Deafness, Hypertension, Seizure Disorder, Thyroid Disorder Additional Past Medical History / Comment(s): NEURO FIBROMITOSIS DEVELOPED BRAIN TUMORS(HEMANGIOMAS)- WITH SURGERIES and pt has become legally blind and is completely deaf. 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 He takes his medication in applesauce or yogurt. He has had hyponatremia which family believes physicians think it may be due to depakote. He had a CVA in August 2014. He has had abdominal pain in the past and overuse of stool softners. He has hemorrhoids. He has a seizure disorder with last seizure yrs ago-family believe seizure medication was working well. History of Any Multi-Drug Resistant Organisms: None Reported Additional Past Surgical History / Comment(s): 04/11/15 total colonoscopy with benign biopsy, ANEURYSM REPAIR(clip in place)-brain surgeries(CRANIOTOMY) due to neuro fibromitosis causing tumors,sx done at [facility]- dr aishwarya harrison. Old L cochlear implant. Pt has had peg and trach in the . Past Anesthesia/Blood Transfusion Reactions: No Reported Reaction Past Psychological History: Anxiety, Depression Smoking Status: Never smoker Past Alcohol Use History: None Reported Past Drug Use History: None Reported - Past Family History Father Family Medical History: COPD Additional Family Medical History / Comment(s): Father was a smoker and had emphysema. Mother Additional Family Medical History / Comment(s): Mother of lung disease. General Exam - General Exam Comments Initial Comments: GENERAL: Patient is well-developed and well-nourished. Patient is nontoxic and in no acute distress. HEAD: Atraumatic, normocephalic. There is no hematomas, no signs of basal skull fracture. EYES: Pupils equal round and reactive to light, extraocular movements intact, sclera anicteric, conjunctiva are normal. Eyelids were unremarkable. ENT: TMs normal, nares patent, oropharynx clear without exudates. Moist mucous membranes. NECK: Normal range of motion, supple without lymphadenopathy or JVD. There is no midline tenderness. LUNGS: Unlabored respirations. Breath sounds clear to auscultation bilaterally and equal. No wheezes rales or rhonchi. HEART: Regular rate and rhythm without murmurs, rubs or gallops. ABDOMEN: Soft, nontender, normoactive bowel sounds. No guarding, no rebound. No masses appreciated. : Deferred MUSCULOSKELETAL: Normal extremities with adequate strength and normal range of motion, no pitting or edema. NEUROLOGICAL: Patient is alert and oriented x 3. Cranial nerves II through XII grossly intact. Symmetrical smile. PSYCH: Normal mood, normal affect. SKIN: Warm, Dry, normal turgor. Patient has a small abrasion noted to the lateral aspect of the right on a near the corner, there is no bleeding, no laceration. Limitations: language barrier Course Vital Signs 02/28/21 16:04 Temperature 98 F Pulse Rate 68 Respiratory 16 Rate Blood Pressure 125/75 O2 Sat by Pulse 97 Oximetry Medical Decision Making - Medical Decision Making Patient is a 55-year-old male here from [facility] after he slipped forward out of his wheelchair hitting the outside of his right eye on a heater. There was no loss of consciousness, he's had no headache, is not on blood thinners. Exam reveals a mild abrasion noted to the outside of the right eye. He has no alarming symptoms, he is at his baseline. Patient's wound will be cleaned, covered with antibiotic and patient will be discharged back to [facility]. Patient is in agreement with this plan of care. Case discussed with Dr. Sykes. Disposition Clinical Impression: Abrasion of face, Fall Disposition: HOME SELF-CARE Condition: Stable Instructions (If sedation given, give patient instructions): Abrasion (ED) Additional Instructions: Please return to the Emergency Department if symptoms worsen or any other concerns. Keep area clean and dry. Apply topical antibiotic once to twice daily. Is patient prescribed a controlled substance at d/c from ED?: No Referrals: Bryant Bhagat MD [Primary Care Provider] - 1-2 days Time of Disposition: 16:21
[2021-02-28] MEDS ORDERED: BACITRACIN OINT 1 EACH PACKET TOPICAL ONE (16:22)
== END 2021-02-28 17:47 | disposition home or self-care (01) ==
LOC: EC 15:59
DX: S00.81XA Abrasion of other part of head, initial encounter (principal); I10 Essential (primary) hypertension; G40.909 Epilepsy, unspecified, not intractable, without status epilepticus; M79.7 Fibromyalgia; H91.90 Unspecified hearing loss, unspecified ear; F32.9 Major depressive disorder, single episode, unspecified; F41.9 Anxiety disorder, unspecified; Z79.1 Long term (current) use of non-steroidal anti-inflammatories (NSAID); Z79.899 Other long term (current) drug therapy; Z86.73 Personal history of transient ischemic attack (TIA), and cerebral infarction without residual deficits; Z87.19 Personal history of other diseases of the digestive system; Z88.8 Allergy status to other drugs, medicaments and biological substances; W05.0XXA Fall from non-moving wheelchair, initial encounter; W22.09XA Striking against other stationary object, initial encounter
CPT/HCPCS: 99284

== ENCOUNTER 2021-05-07 12:15 | Emergency (ER) | payer MEDICARE, OTHER ==
[2021-05-07 12:34] LABS: Glucose,Whole Blood 100 mg/dL (75-99)
[2021-05-07] MEDS ORDERED: SODIUM CHLORIDE 0.9% 500 ML 500 ML IV STA (12:36)
--- NOTE | 2021-05-07 12:39 | ED ---
General Adult HPI - General Chief complaint: Weakness Stated complaint: Lt Sided Weakness Time Seen by Provider: 05/07/21 12:30 Source: EMS, RN notes reviewed, old records reviewed Mode of arrival: EMS - History of Present Illness Initial comments: I was made aware of this patient at 12:30. This is a 55-year-old male who was sent in from one of the nursing homes for left-sided paralysis we do not have a last seen normal we are going to try to call the senior living is here for Get a time. Patient is deaf and blind and has so far not given us any history. Patient was sent in because he had complete paralysis of his left arm and left leg. There is a history of neurofibro matosis. There is no history of any trauma or recent fevers or any difficulty breathing or vomiting or diarrhea. - Related Data Home Medications Medication Instructions Recorded Confirmed ARIPiprazole [Abilify] 20 mg PO DAILY@0900 11/25/15 05/07/21 Acetaminophen Tab [Tylenol] 650 mg PO Q4H PRN 11/15/20 05/07/21 Divalproex Sodium [Depakote] 500 mg PO TID@0900,1300,209911/15/20 05/07/21 Lactose-Reduced Food [Ensure Plus] 240 ml PO TID@0900,1300,209911/15/20 05/07/21 Levothyroxine Sodium [Synthroid] 100 mcg PO HS@209911/15/20 05/07/21 Metoprolol Tartrate [Lopressor] 50 mg PO BID@0900,209911/15/20 05/07/21 Multivitamins, Thera [Multivitamin 1 tab PO DAILY@89911/15/20 05/07/21 (formulary)] Oxybutynin Xl [Ditropan XL] 5 mg PO DAILY@89911/15/20 05/07/21 Phenazopyridine [Pyridium] 100 mg PO Q8H PRN 11/15/20 05/07/21 Sertraline HCl [Zoloft] 100 mg PO BID@0900,209911/15/20 05/07/21 Tamsulosin [Flomax] 0.4 mg PO HS 11/15/20 05/07/21 Thiamine [Vitamin B-1] 100 mg PO BID@0900,209911/15/2005/07/21 ARIPiprazole [Abilify] 5 mg PO DAILY@89905/07/21 05/07/21 Aspirin 81 mg PO DAILY@89905/07/21 05/07/21 Butalb/Acetaminophen/Caffeine 1 cap PO TID PRN 05/07/21 05/07/21 [Fioricet 50-300-40 mg Capsule] Cholecalciferol [Vitamin D3 (25 25 mcg PO DAILY@89905/07/21 05/07/21 Mcg = 1000 Iu)] Folic Acid 1 mg PO DAILY@89905/07/21 05/07/21 LORazepam [Ativan] 0.5 mg PO Q6H PRN 05/07/21 05/07/21 Mag Hydrox/Aluminum Hyd/Simeth 10 ml PO Q4H PRN 05/07/21 05/07/21 [Mylanta Maximum Strength Liq] Vitamin B Complex 1 cap PO DAILY@89905/07/21 05/07/21 Previous Rx's Medication Instructions Recorded Ibuprofen [Motrin] 600 mg PO Q6H PRN 3 Days #0 11/21/20 Allergies Allergy/AdvReac Type Severity Reaction Status Date / Time alprazolam [From Xanax] Allergy Unknown Verified 05/07/21 13:27 buspirone HCl [From BuSpar] Allergy Rash/Hives Verified 05/07/21 13:27 [place] And Derivatives Allergy Unknown Verified 05/07/21 13:27 [[place]] iodine Allergy Unknown Verified 05/07/21 13:27 Childhood mite-Dermatophagoides Allergy Unknown Verified 05/07/21 13:27 farinae, vega morphine Allergy Unknown Verified 05/07/21 13:27 peanut Allergy Unknown Verified 05/07/21 13:27 tomato Allergy Unknown Verified 05/07/21 13:27 haloperidol [From Haldol] AdvReac personality Verified 05/07/21 13:27 changes haloperidol lactate AdvReac personality Verified 05/07/21 13:27 [From Haldol] changes CT SCAN DYE Allergy Unknown Uncoded 11/12/20 15:27 Childhood Review of Systems ROS Statement: Those systems with pertinent positive or pertinent negative responses have been documented in the HPI. ROS Other: All systems not noted in ROS Statement are negative. Past Medical History Past Medical History: CVA/TIA, Eye Disorder, Fibromyalgia, Hearing Disorder / Deafness, Hypertension, Seizure Disorder, Thyroid Disorder Additional Past Medical History / Comment(s): NEURO FIBROMITOSIS DEVELOPED BRAIN TUMORS(HEMANGIOMAS)- WITH SURGERIES and pt has become legally blind and is completely deaf. 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 He takes his medication in applesauce or yogurt. He has had hyponatremia which family believes physicians think it may be due to depakote. He had a CVA in August 2014. He has had abdominal pain in the past and overuse of stool softners. He has hemorrhoids. He has a seizure disorder with last seizure yrs ago-family believe seizure medication was working well. History of Any Multi-Drug Resistant Organisms: None Reported Additional Past Surgical History / Comment(s): 04/11/15 total colonoscopy with benign biopsy, ANEURYSM REPAIR(clip in place)-brain surgeries(CRANIOTOMY) due to neuro fibromitosis causing tumors,sx done at [facility]- dr aishwarya harrison. Old L cochlear implant. Pt has had peg and trach in the . Past Anesthesia/Blood Transfusion Reactions: No Reported Reaction Past Psychological History: Anxiety, Depression Smoking Status: Never smoker Past Alcohol Use History: None Reported Past Drug Use History: None Reported - Past Family History Father Family Medical History: COPD Additional Family Medical History / Comment(s): Father was a smoker and had emphysema. Mother Additional Family Medical History / Comment(s): Mother of lung disease. General Exam - General Exam Comments Initial Comments: GENERAL: Patient is well-developed and well-nourished. Patient is nontoxic and well- hydrated and is in no acute distress. ENT: Neck is soft and supple. No significant lymphadenopathy is noted. Oropharynx is clear. Moist mucous membranes. EYES: The sclera were anicteric and conjunctiva were pink and moist. Extraocular mov ements were intact and pupils were equal round and reactive to light. Eyelids were unremarkable. PULMONARY: Unlabored respirations. Good breath sounds bilaterally. No audible rales rhonchi or wheezing was noted. CARDIOVASCULAR: There is a regular rate and rhythm without any murmurs gallops or rubs. ABDOMEN: Soft and nontender with normal bowel sounds. SKIN: Skin is clear with no lesions or rashes and otherwise unremarkable. NEUROLOGIC: Patient is alert patient is unable to answer any questions secondary to being blind and deaf. Patient did move the right arm and right leg however he is unable to move the left arm and left leg from what we can tell however he does not hear us and it's difficult to evaluate the patient. MUSCULOSKELETAL: Patient has some movement on the right but no movement on the left. PSYCHIATRIC: Unable to evaluate Course Vital Signs 05/07/21 05/07/21 05/07/21 12:22 12:26 12:38 Temperature 97.4 F L 97.4 F L 97.4 F L Pulse Rate 69 69 67 Respiratory 18 18 18 Rate Blood Pressure 137/90 137/90 128/75 O2 Sat by Pulse 97 98 98 Oximetry 05/07/21 05/07/21 05/07/21 13:00 13:15 13:30 Temperature 97.4 F L 97.4 F L 97.4 F L Pulse Rate 80 75 79 Respiratory 18 18 18 Rate Blood Pressure 145/83 136/88 149/87 O2 Sat by Pulse 98 99 99 Oximetry 05/07/21 05/07/21 05/07/21 13:45 14:00 14:15 Temperature Pulse Rate 74 72 73 Respiratory 16 16 16 Rate Blood Pressure 133/94 128/81 132/82 O2 Sat by Pulse 98 98 97 Oximetry 05/07/21 14:40 Temperature 98 F Pulse Rate 73 Respiratory 16 Rate Blood Pressure 132/82 O2 Sat by Pulse 97 Oximetry Medical Decision Making - Medical Decision Making EKG shows normal sinus rhythm at 69 bpm MA interval 148 QRS is 70 QT interval 3 98 QTC is 426. Patient's EKG shows no ST segment elevation or depression. We contacted the senior living and they stated that symptoms began at 11:00am. Computed tomography scan shows subarachnoid hemorrhage with multiple enlarging masses as well. Patient's CTA shows 2 aneurysms which could be the site of his subarachnoid hemorrhage. I spoke with Dr. Angeles after he read the CAT scan of the CTA he wanted the patient transferred to [facility] I am now waiting for a room so the patient can be transferred. - Lab Data Result diagrams: 05/07/21 12:38 05/07/21 12:38 Lab Results 05/07/21 05/07/21 05/07/21 Range/Units 12:26 12:38 12:38 WBC 9.3 (3.8-10.6) k/uL RBC 3.97 L (4.30-5.90) m/uL Hgb 13.6 (13.0-17.5) gm/dL Hct 39.0 (39.0-53.0) % MCV 98.0 (80.0-100.0) fL MCH 34.3 (25.0-35.0) pg MCHC 35.0 (31.0-37.0) g/dL RDW 12.6 (11.5-15.5) % Plt Count 185 (150-450) k/uL MPV 7.3 Neutrophils % 79 % Lymphocytes % 11 % Monocytes % 7 % Eosinophils % 1 % Basophils % 0 % Neutrophils # 7.4 (1.3-7.7) k/uL Lymphocytes # 1.0 (1.0-4.8) k/uL Monocytes # 0.6 (0-1.0) k/uL Eosinophils # 0.1 (0-0.7) k/uL Basophils # 0.0 (0-0.2) k/uL PT 11.0 (9.0-12.0) sec INR 1.0 (<1.2) APTT 22.2 (22.0-30.0) sec Sodium (137-145) mmol/L Potassium (3.5-5.1) mmol/L Chloride (98-107) mmol/L Carbon Dioxide (22-30) mmol/L Anion Gap mmol/L BUN (9-20) mg/dL Creatinine (0.66-1.25) mg/dL Est GFR (CKD-EPI)AfAm (>60 ml/min/1.73 sqM) Est GFR (CKD-EPI)NonAf (>60 ml/min/1.73 sqM) Glucose (74-99) mg/dL POC Glucose (mg/dL) 100 H (75-99) mg/dL POC Glu Viticulture Teacher ID Svacha, II, [place] Calcium (8.4-10.2) mg/dL Total Bilirubin (0.2-1.3) mg/dL AST (17-59) U/L ALT (4-49) U/L Alkaline Phosphatase (38-126) U/L Troponin I (0.000-0.034) ng/mL Total Protein (6.3-8.2) g/dL Albumin (3.5-5.0) g/dL Valproic Acid ug/mL 05/07/21 05/07/21 05/07/21 Range/Units 12:38 12:38 13:13 WBC (3.8-10.6) k/uL RBC (4.30-5.90) m/uL Hgb (13.0-17.5) gm/dL Hct (39.0-53.0) % MCV (80.0-100.0) fL MCH (25.0-35.0) pg MCHC (31.0-37.0) g/dL RDW (11.5-15.5) % Plt Count (150-450) k/uL MPV Neutrophils % % Lymphocytes % % Monocytes % % Eosinophils % % Basophils % % Neutrophils # (1.3-7.7) k/uL Lymphocytes # (1.0-4.8) k/uL Monocytes # (0-1.0) k/uL Eosinophils # (0-0.7) k/uL Basophils # (0-0.2) k/uL PT (9.0-12.0) sec INR (<1.2) APTT (22.0-30.0) sec Sodium 136 L (137-145) mmol/L Potassium 4.0 (3.5-5.1) mmol/L Chloride 100 (98-107) mmol/L Carbon Dioxide 28 (22-30) mmol/L Anion Gap 8 mmol/L BUN 21 H (9-20) mg/dL Creatinine 0.59 L (0.66-1.25) mg/dL Est GFR (CKD-EPI)AfAm >90 (>60 ml/min/1.73 sqM) Est GFR (CKD-EPI)NonAf >90 (>60 ml/min/1.73 sqM) Glucose 106 H (74-99) mg/dL POC Glucose (mg/dL) (75-99) mg/dL POC Glu Viticulture Teacher ID Calcium 9.0 (8.4-10.2) mg/dL Total Bilirubin 0.3 (0.2-1.3) mg/dL AST 29 (17-59) U/L ALT 13 (4-49) U/L Alkaline Phosphatase 60 (38-126) U/L Troponin I 0.286 H* (0.000-0.034) ng/mL Total Protein 6.4 (6.3-8.2) g/dL Albumin 3.7 (3.5-5.0) g/dL Valproic Acid 46.5 ug/mL Critical Care Time Critical Care Time: Yes Total Critical Care Time: 35 Disposition Clinical Impression: Subarachnoid hemorrhage, Brain aneurysm, History of neurofibromatosis, Elevated troponin Disposition: OTHER INSTITUTION NOT DEFINED Referrals: Bryant Bhagat MD [Primary Care Provider] - 1-2 days - Out of Hospital Transfer - Req. Specs Out of Hospital Transfer - Requested Specifics: Other Emergency Center ([facility])
[2021-05-07] MEDS ORDERED: diphenhydrAMINE 50 MG/ML 1 ML VIAL IVP STA ×2 (12:54→17:10)
[2021-05-07] MEDS ORDERED: methylPREDNISolone SOD SUCCI 125 MG/2 ML VIAL IV STA (12:54)
[2021-05-07] MEDS ORDERED: FAMOTIDINE 20 MG/2 ML VIAL IV STA (12:54)
[2021-05-07 12:58] LABS: Basophils % (A) 0 %; Eosinophils # (A) 0.1 k/uL (0-0.7); Eosinophils % (A) 1 %; HGB 13.6 gm/dL (13.0-17.5); Lymphocytes % (A) 11 %; MCH 34.3 pg (25.0-35.0); Mean Platelet Volume 7.3; Monocytes # (A) 0.6 k/uL (0-1.0); Monocytes % (A) 7 %; Neutrophils # (A) 7.4 k/uL (1.3-7.7); Neutrophils % (A) 79 %; Platelet Count 185 k/uL (150-450); RBC 3.97 m/uL (4.30-5.90); RDW 12.6 % (11.5-15.5); WBC 9.3 k/uL (3.8-10.6)
[2021-05-07 13:07] LABS: Partial Thromboplastin Time 22.2 sec (22.0-30.0)
[2021-05-07 13:10] LABS: ALT 13 U/L (4-49); AST 29 U/L (17-59); African American GFR (CKD) >90 (>60 ml/min/1.73 sqM); Albumin 3.7 g/dL (3.5-5.0); Alkaline Phosphatase 60 U/L (38-126); Anion Gap 8 mmol/L; Blood Urea Nitrogen 21 mg/dL (9-20); Carbon Dioxide 28 mmol/L (22-30); Chloride 100 mmol/L (98-107); Glucose 106 mg/dL (74-99); Non-African American GFR(CKD) >90 (>60 ml/min/1.73 sqM); Sodium 136 mmol/L (137-145); Total Bilirubin 0.3 mg/dL (0.2-1.3); Total Protein 6.4 g/dL (6.3-8.2)
--- NOTE | 2021-05-07 13:17 | CT ---
EXAMINATION TYPE: CT brain wo con for TPA DATE OF EXAM: 05/07/2021 HISTORY: left side weakness, history of neurofibromatosis. CT DLP: unavailable mGycm. Automated Exposure Control for Dose Reduction was Utilized. TECHNIQUE: CT scan of the head is performed without contrast. COMPARISON: Most recent CT brain November 15, 2020 and older studies. FINDINGS: There is persistent right posterior fossa craniotomy defect and lower lateral left posterio r fossa craniotomy defect with stimulator wires extending to below the level of fourth ventricle ther e is persistent hyperostosis. There is right frontal craniotomy with irregular sclerotic bone at this level redemonstrated. There is dense calcification and ossification along the interhemispheric fissu re redemonstrated. There are several small peripheral hyperdense and partially calcified extra-axial masses. There is pe rsistent dense calcification within the ventricular system. There is new high right frontal acute hemorrhage ovoid in shape measuring 4.2 x 2.2 cm axial image 45 . There is local mass effect with suspected white matter expansion suggested interparenchymal locatio n. This may be within a isodense mass at this level. There is suggestion of more isodense ovoid mass high left frontal region new from prior study with more isodense mass suspected also in the midline o f the frontal lobes near axial image 34. There is new subarachnoid hemorrhage filling the sulci over the bilateral temporal lobes extending into involve the frontal and parietal lobes. Aneurysm clip in the suprasellar level is redemonstrated. Ventricular size fairly stable. Asymmetric prominence left temporal horn redemonstrated. Slight midli ne shift on current study. IMPRESSION: New bilateral significant acute subarachnoid hemorrhage. Significant chronic changes incl uding prior aneurysm coiling and multiple extra-axial hyperdense, isodense, and partially calcified m asses. Some masses are thought to have enlarged in size particularly left frontal region with more lo goyo mass effect. There is new high right acute hemorrhage on current study possibly within a mass at this level with local mass effect. Critical results communicated to ordering ER physician by Telephone at time of dictation.
--- NOTE | 2021-05-07 13:45 | CT ---
EXAMINATION TYPE: CT angio head neck DATE OF EXAM: 05/07/2021 HISTORY: left side weakness. History of treated aneurysm. History of neurofibromatosis. COMPARISON: None. CT DLP: 411 mGycm. Automated Exposure Control for Dose Reduction was Utilized. TECHNIQUE: CTA scan of the head and neck are performed with IV Contrast, patient injected with 65 mL of Isovue 370, axial images are obtained, coronal and sagittal reformatted images are reviewed. 3D r econstructed images are created on an independent workstation and reviewed. FINDINGS: Carotid/Vascular Structures: There is 4 vessel origin from aortic arch which is normal variant. Pam l origin right common carotid artery from right brachiocephalic artery. No significant focal plaque o r stenosis in the common carotid arteries bilaterally including at level of carotid bulbs. Minimal pl aque left carotid bulb level noted. There are Patent external carotid arteries bilaterally without si gnificant stenosis. Tortuous course to the proximal right internal carotid artery. The mid left inter nal carotid artery shows a rim calcified 2.0 x 1.4 cm aneurysm with hypodense plaque along the periph mario. This is presumed chronic given the rim calcification. No free contrast extravasation noted. There is artifact near foramen magnum from stimulator lead making evaluation of this level suboptimal . Remainder vertebral arteries patent to basilar junction. Patent right posterior communicating arter y. There is patent left posterior communicating artery. There is aneurysm clip at level of the anteri or communicating artery causing streak artifact limiting evaluation. At the distal left internal sánchez tid artery there is irregular tubular prominence raw data image 33 series 508 which fills the left po sterior communicating artery and the middle cerebral artery. There are small caliber left A1 segment from this extending to level of streak artifact. There is tortuous distal right internal carotid nancy ry with abnormal irregular wall enhancement diminished caliber distally near raw data slice 31 throug h 33 right before the anterior middle cerebral artery origins. Patent anterior communicating arteries are noted. There is some surrounding blood product at this level just above the deep temporal ridge. Some hyperdense material could reflect hemorrhage versus known hyperdense intracranial masses axial image 13 series 505 for reference. Other: Underlying scoliosis. Moderate multilevel disc space narrowing in the cervical spine. IMPRESSION: 1. There is large 2.0 cm thrombosed suspected chronic aneurysm mid segment left internal carotid nancy ry. Exam suboptimal due to underlying hyperdense intracranial masses along with extensive surgical ch vishal. Some aneurysmal prominence at the distal left internal carotid artery. Some irregularity and mo re suspicious surrounding hyperdensity distal right internal carotid artery. Both could be the source s of new acute subarachnoid hemorrhage. Further surgical and/or endovascular workup should be conside red. NASCET criteria was used in interpretation of this exam?
--- NOTE | 2021-05-07 15:30 | XR ---
EXAMINATION TYPE: XR chest 1V DATE OF EXAM: 05/07/2021 COMPARISON: 11/20/2020 HISTORY: 55-year-old male confusion, altered mental status TECHNIQUE: Single frontal view of the chest is obtained. FINDINGS: Heart limits of normal in size. Asymmetric elevation right hemidiaphragm. Bony vasculature within nor mal limits. No alcides consolidation or pleural effusion seen. IMPRESSION: Continued asymmetric elevation right hemidiaphragm. No definite acute process.
[2021-05-07] MEDS ORDERED: LORazepam 2 MG/ML INJ IV STA (20:11)
[2021-05-07 21:45] VITALS: BP 139/91; PULSE 83; RESP 20; TEMP 98.7
== END 2021-05-07 22:18 | disposition other institution (70) ==
LOC: EC 12:15
DX: I60.9 Nontraumatic subarachnoid hemorrhage, unspecified (principal); I67.1 Cerebral aneurysm, nonruptured; R77.8 Other specified abnormalities of plasma proteins; H91.90 Unspecified hearing loss, unspecified ear; I10 Essential (primary) hypertension; G40.909 Epilepsy, unspecified, not intractable, without status epilepticus; E07.9 Disorder of thyroid, unspecified; Q85.00 Neurofibromatosis, unspecified; Z86.73 Personal history of transient ischemic attack (TIA), and cerebral infarction without residual deficits; Z79.899 Other long term (current) drug therapy; Z79.890 Hormone replacement therapy; Z79.82 Long term (current) use of aspirin; Z88.8 Allergy status to other drugs, medicaments and biological substances; Z88.5 Allergy status to narcotic agent; Z91.010 Allergy to peanuts; Z91.018 Allergy to other foods; Z91.041 Radiographic dye allergy status; Z91.048 Other nonmedicinal substance allergy status
CPT/HCPCS: 36415; 93005; 80164; 80053; 84484; 85025; 85610; 85730; 71045; 70496; 70450; 70498; 99291; 96374; 96376; 96375; 96361; J2060; J1200; J2930; Q9967